=== PATIENT | female | born 1950 | race Caucasian/White ===

== ENCOUNTER 2024-11-18 06:17 | Day surgery (SDC) | payer MEDICARE, OTHER, SELFPAY ==
[2024-11-18] VITALS (18 sets, daily range): BP systolic 113–170; BP diastolic 55–74; BMI 33.4
[2024-11-18 07:02] LABS: Glucose - Point of Care 137 mg/dl (70-99)
--- NOTE | 2024-11-18 08:05 | CONSULT.STRU ---
Consultation
-
Date/Time Consultation Requested: 11/18/2024
Date/Time Consultation Performed: 11/18/2024
Requesting Provider: Anshul Mayfield MD
Performing Provider: RAE Bishop
Reason for Consultation: /TAVR
Patient History
Physicians
Family Physician: Maggie Jacobs DO
Outpatient Wire Mill Operator: Rudy Fischer MD
Primary Wire Mill Operator: Rudy Fischer DO
History of Present Illness
Ms. Brown is a very pleasant 74 yof that has a past medical history significant for aortic stenosis, PAF, diabetes, HTN, and hypercholesterolemia. Her most recent echocardiogram from 10/26/2024 is notable for an EF 50-55%, AV P/M 95/51, mild to
moderate AI, moderate MAC, mild MR, mild TR, RVSP 34. From a symptomatology standpoint, patient describes fatigue and increased exercise tolerance. When patient came in for cardiac catheterization on 11/18/2024 she was noted to have intermittent 2-1
and 3-1 AV block during the procedure which appears to be type II second-degree. She will have a pacemaker placed. Discussed the pathophysiology and treatment options of aortic stenosis including SAVR and TAVR, Explained the evaluation process
comprising of lab work, CT scan, CT surgical consult, dental clearance, and a heart team discussion. TAVR booklet, contact information, prescriptions, and appointments given to patient. Allowed for and answered questions at bedside.
Past Medical History
Past Medical History: Asthma, Atrial Fib (PAF), HTN, Hypercholesterolemia, Hypothyroidism, Psychiatric (anxiety, insomnia), Valvular Disease (aortic stenosis) and Other (benign neoplasm of the colon, lichen sclerosis)
Past Surgical History
Past Surgical History: Hysterectomy, Orthopedic (rotator cuff repair, total shoulder arthroplasty) and Other (spigelian hernia repair)
Dental History
[facility]--UTD-Form faxed
Family History
Family Medical History: CAD
Social History
Alcohol: None
Drug: Marijuana
Tobacco: Former Smoker
Personal:
Living: Alone
Allergies
Allergy/AdvReac Type Severity Reaction Status Date / Time
aspirin Allergy Rash Verified 11/18/24 07:04
NSAIDS (Non-Steroidal Allergy Swelling Verified 11/18/24 07:04
Anti-Inflamma
Home Medications
�Medication �Instructions �Recorded �Confirmed �Type
albuterol sulfate 90 mcg/actuation 2 puff inhalation Q6H PRN wheezing 11/18/24 11/18/24 History
aerosol inhaler
levothyroxine 88 mcg tablet 88 mcg PO DAILY 11/18/24 11/18/24 History
losartan 100 mg tablet 100 mg PO DAILY 11/18/24 11/18/24 History
magnesium 200 mg tablet 200 mg PO DAILY 11/18/24 11/18/24 History
meloxicam 7.5 mg tablet 7.5 mg PO DAILY 11/18/24 11/18/24 History
metformin 500 mg tablet 500 mg PO BID 11/18/24 11/18/24 History
metoprolol tartrate 50 mg tablet 50 mg PO BID 11/18/24 11/18/24 History
mirtazapine 15 mg tablet 15 mg PO DAILY 11/18/24 11/18/24 History
simvastatin 40 mg tablet 40 mg PO DAILY 11/18/24 11/18/24 History
tramadol 50 mg tablet 50 mg PO DAILY PRN pain 11/18/24 11/18/24 History
STS%
STS %: 4.3
Review of Systems
-
History Source: Patient
General: Reports Fatigue
HEENT: Reports No Symptoms
Respiratory: Reports No Symptoms
Cardiac: Reports Other (SYNCOPE)
Abdomen/GI: Reports No Symptoms
: Reports No Symptoms
Musculoskeletal: Reports No Symptoms
Skin: Reports No Symptoms
Neurological: Reports No Symptoms
Vascular: Reports No Symptoms
Physical Exam
Vital Signs
Temp 97.6 F 11/18/24 06:39
Temp route: Oral 11/18/24 06:32
Pulse 89 11/18/24 07:15
Resp Rate 18 11/18/24 06:32
Blood pressure 157/61 11/18/24 06:39
Blood pressure extremity used: Left upper arm 11/18/24 06:32
Position: Sitting 11/18/24 06:32
MAP (cuff-Mary Monitor) 93 11/18/24 06:39
SaO2 97 11/18/24 06:50
Oxygen Mode of Delivery Room air 11/18/24 06:32
Can the patient verbally communicate their pain? Yes 11/18/24 06:32
Labs
11/10/2024
HH: 13.8/43.4
Plt: 267K
BUN/Creatinine: 18/0.68
GFR: 91
Diagnostic Studies
ECHOCARDIOGRAM 10/26/2024
SUMMARY
1. Left ventricular ejection fraction, by visual estimation, is 50 to 55%.
2. Severe concentric left ventricular hypertrophy.
3. Decreased left ventricular internal cavity size by (3.47 cm/ 1.86 cm/m2).
4. Normal LV diastolic function.
5. Normal right ventricular size and systolic function.
6. Aortic valve is functionally bicuspid. Severe aortic valve stenosis. Mild to moderate aortic regurgitation.
7. AoV velocity of 4.86 m/s; Peak aortic valve gradient = 94.7 mmHg; Mean gradient = 51.2 mmHg; AoV Area by continuity equation = 0.62 cm2; AoV Dimensionless Index = 0.19.
8. There is moderate thickening of the anterior and posterior leaflets of the mitral valve. Moderate mitral annular calcification.
9. Mild mitral valve regurgitation is seen.
10. Right atrial pressure of (3 mmHg), the estimated right ventricular systolic pressure is normal at (34.1 mmHg).
11. Compared to prior study 04/08/2024, Aortic Gradients have increased.
12. Study done in Normal sinus rhythm.
CARDIAC CATHETERIZATION 11/18/2024
ASSESSMENT:
1: Single-vessel coronary artery disease in the mid/distal LAD. It is not clear to me that this is obstructive and would plan to treat medically if she is a TAVR candidate for her severe aortic stenosis.
2: The patient had intermittent 2-1 and 3-1 AV block during the procedure which appears to be type II second-degree. Will arrange for urgent pacemaker insertion later today given her recent unexplained syncope and underlying bifascicular block.
3: Severe aortic valvular stenosis.
CONCLUSIONS and RECOMMENDATIONS:
1: Proceed with TAVR evaluation.
2: Planned dual-chamber pacemaker later today.
3: Medical therapy for coronary artery disease.
Procedure Type:�Isolated AVR
Perioperative Outcome Estimate %
Operative Mortality 4.3%
Morbidity & Mortality 11.9%
Stroke 0.005%
Renal Failure 3.62%
Reoperation 2.49%
Prolonged Ventilation 5.86%
Deep Sternal Wound Infection 0.034%
Long Hospital Stay (>14 days) 9.8%
Short Hospital Stay (<6 days)* 30.1%
Exam
General: Well Developed, Well Nourished, No Apparent Distress and Comfortable
HEENT: Normocephalic and PERRLA
Neck: Trachea Midline
Respiratory: Clear (anteriorly)
Cardiac: Murmur (III/ LYUBOV)
GI: Soft, Non Tender and Non Distended
Rectal: Deferred by Provider
Skin: Warm and Dry
Neuro: Awake, Alert, Oriented and AO x 3
Extremities: Lower Level Edema
Psych: Calm
Assessment / Plan
-
Aortic Stenosis
Continue TAVR evaluation
Trend creatinine (Rx given)
TAVR CT scan (12/04)
CT surgical consult (TT 12/14)
Frailty testing and Kccq12 at consult
Discuss antiplatelet plan--pt has aspirin allergy
Dental clearance
Heart team discussion
Data Reviewed
-
EKG: Report Reviewed by me (RBBB, LAFB, bifascicular block)
Government Minister: Report Reviewed by me and Discussed with Physician
Echo: Report Reviewed by me and Discussed with Physician
Labs: Labs Reviewed by me
Old Records: Reviewed
Total Time Spent with Patient (in minutes): 45
--- NOTE | 2024-11-18 08:51 | ITS.CL.CATH ---
Drug Enforcement Administration Agent - Catheterization
Cardiac Catheterization
Procedure Report:
LEFT HEART CATHETERIZATION
Date of Procedure: November 18, 2024
Procedures performed:
1: Coronary angiography
2: Left ventricular hemodynamic assessment
Primary Care Physician: Dr. Maggie Jacobs
Primary Annealing Furnace Tender: Dr. Rudy Fischer
INDICATION: The patient is a 74-year-old woman with a past medical history significant for progressive severe aortic stenosis who is referred for cardiac catheterization in preparation for aortic valve intervention. Of note, she has had 7 episodes
of presyncope and actually had true syncope 2 weeks ago. She has bifascicular block with right bundle branch and left anterior fascicular block on her EKG. Echocardiogram performed on October 26 shows preserved LV systolic function, severe concentric
left ventricular hypertrophy. Mean aortic valve gradient of 51 with mild to moderate aortic regurgitation and a valve area by the continuity equation 0.6 cm�.
ACCESS: The patient was prepped and draped in usual sterile fashion. A 5 Eston[place] sheath was placed in the right radial artery using the Seldinger over the wire technique.
HEMODYNAMIC FINDINGS (mmHg):
LV(s/d,EDP): 227/8, 27
Ao(s/d,m): 157/89, 101
Mean aortic valve gradient on pullback: 54 mmHg
ANGIOGRAPHIC FINDINGS:
Single-plane Left Ventriculography in BAUMANN Projection: Not done.
Coronary Angiography:
Dominance: Right
Left Main: Normal
Left Anterior Descending: Left anterior descending artery is a medium to large caliber vessel that is diffusely calcified throughout the midportion. The proximal LAD is widely patent. There are mild luminal irregularities throughout the mid LAD
which gives rise to 2 medium caliber diagonal branches which are also widely patent with normal flow. After the takeoff of the second diagonal branch there is a smooth 60 to 70% mid/distal LAD stenosis with normal flow in the apical LAD which wraps
around to feed a significant portion of the distal inferior wall.
Left Circumflex: The left circumflex is a medium caliber nondominant system that gives rise to 2 major branching obtuse marginal branches. These vessels have mild luminal irregularities with normal flow and no focal obstructive disease.
Right Coronary: The right coronary artery is a medium caliber dominant vessel that gives rise to a small posterior descending artery and larger posterior left ventricular branch. These vessels have only mild luminal irregularities with normal flow
and no focal obstructive disease.
Fluoroscopy Time (min): 4.0
Radiation Dose (mGy): 339
DAP (Gy.cm2): 19.6
Closure device: None. A TR band was applied for hemostasis at the right wrist.
Complications: None.
ASSESSMENT:
1: Single-vessel coronary artery disease in the mid/distal LAD. It is not clear to me that this is obstructive and would plan to treat medically if she is a TAVR candidate for her severe aortic stenosis.
2: The patient had intermittent 2-1 and 3-1 AV block during the procedure which appears to be type II second-degree. Will arrange for urgent pacemaker insertion later today given her recent unexplained syncope and underlying bifascicular block.
3: Severe aortic valvular stenosis.
CONCLUSIONS and RECOMMENDATIONS:
1: Proceed with TAVR evaluation.
2: Planned dual-chamber pacemaker later today.
3: Medical therapy for coronary artery disease.
Anshul Mayfield M.D.
Copy to: Dr. Maggie Jacobs
[2024-11-18] MEDS: NSS 1000 IV (08:59)
[2024-11-18] MEDS: COZAAR 100 MG PO (09:05)
--- NOTE | 2024-11-18 10:03 | PTCARENOTE ---
Received pt from cardiac cathode ray tube assembler. VSS. Right radial cath site w/ R band intact and inflated w/ 12 ml of air. Pt denies any chest discomfort. SB w/ 2:1 heart block noted on the air sampling and monitoring. Pt kept NPO for pacemaker placement this
afternoon. Will monitor.
[2024-11-18 12:01] LABS: Glucose - Point of Care 101 mg/dl (70-99)
--- NOTE | 2024-11-18 15:53 | ITS.CL.PACE ---
Navy Seal - Pacemaker Implant
Pacemaker Implant
Procedure Report:
PACEMAKER IMPLANT REPORT
Primary Care Physician: Dr. Maggie Jacobs
Primary Controls Technician: Dr. Rudy Fischer
Date of Procedure: November 18, 2024
Procedure:
1: Dual chamber pacemaker implantation with fluoroscopic guidance
Indication/Diagnosis:
1: Non-reversible symptomatic bradycardia due to: Intermittent type II second degree AV block with unexplained syncope and recurrent presyncope
History: The patient is a 74-year-old woman who has a past medical history significant for hypertension, hyperlipidemia, coronary artery disease, and severe progressive aortic stenosis. She was referred today for coronary angiography as part of a
preaortic valve intervention workup. On arrival she reported several episodes of presyncope and true syncope concerning for symptomatic bradycardia. She has underlying bifascicular block with LAFB and RBBB. During the cath she was noted to have
periods of type II second-degree AV block and is now presenting for dual-chamber pacemaker placement.
Antibiotic: Ancef 2 g IV
Sedation: Conscious sedation as per anesthesia staff
Description of Procedure: After informed consent was obtained, 'time out' was called and confirmed, the patient was prepped and draped in a sterile fashion. Lidocaine with epinephrine was used for local anesthesia. Central venous access was
obtained via subclavian venopuncture after a venogram from the left arm confirmed subclavian patency. An incision was made along the left chest and a pre-pectoral pocket was formed. Using a Seldinger technique and peel-away sheaths, the pacing
leads were placed under fluoroscopic guidance. Once testing (see below) showed adequate and stable function, the leads were secured using the suture sleeves. The pocket was liberally irrigated with antibiotic solution. The leads were connected to
the generator header and the leads and generator were placed within the pocket. Fluoroscopy confirmed stable lead position. The pocket was closed in the typical fashion.
IMPLANTS:
Company: [employer] [id number], SN: [id number] left Pectoral
RA: [employer] [id number], SN: [id number], RAA
RV: [employer] [id number], SN: [id number], RV apical septum
DEVICE TESTING:
Sensing: RA 4.5 mV, RV greater than 12 mV
Capture: RA 1.25 V@0.4ms, RV 0.75V@0.4ms
Ohms: RA 660, RV 790
FINAL PROGRAMMING
Merritt Pacing: DDDR 60-120 ppm
Complications: None.
Fluoroscopy Time (min): 9.2
Radiation Dose (mGy): 52
DAP (Gy.cm2): 6.1
CONCLUSIONS:
1: Successful implant of dual chamber permanent pacemaker
RECOMMENDATIONS:
1. Routine post-op care (tele, CXR, arm sling).
2. In-Office wound check within 7 days.
3. Office interrogation within 4 weeks.
--- NOTE | 2024-11-18 15:54 | DOWNTIME ---
There was a meebee Client Folder Gluer Operator Downtime on 11/18/2024 from 1230 to 11/18/2024 at 1550. Downtime documentation of patient's care, including medication administrations, has been reconciled in the electronic record per guidelines. Refer to the
patient's paper chart under the miscellaneous tab to see printed paper medication records and downtime forms.
--- NOTE | 2024-11-18 15:57 | PTCARENOTE ---
Pt to excavation laborer after 1300 for PPM.
--- NOTE | 2024-11-18 16:07 | CM ---
Attempted to meet with patient x2 on this date to complete initial assessment.
Pt. was not present in room on both occasions. Will re-attempt at a later time.
[2024-11-18] MEDS: NOVOLOG FLEXPEN-MODERATE RESISTANCE SC (16:19)
[2024-11-18 16:53] LABS: Glucose - Point of Care 157 mg/dl (70-99)
--- NOTE | 2024-11-18 17:32 | PTCARENOTE ---
Received pt post PPM. Left ACW PPM gauze dressing intact. VSS. Pt denies any chest discomfort. EKG obtained. Orders noted. Will monitor.
[2024-11-18] MEDS: NOVOLOG FLEXPEN-MODERATE RESISTANCE 1 UNITS SC (18:49)
[2024-11-18] MEDS: LOPRESSOR 50 MG PO (21:00)
[2024-11-18] MEDS: REMERON 15 MG PO (21:01)
[2024-11-18] MEDS: LIPITOR 20 MG PO (21:01)
--- NOTE | 2024-11-18 21:17 | PTCARENOTE ---
Received patient at change of shift. SR on the monitor, HR in the 90s. L chest pacemaker site with gauze and Tegaderm, CDI and soft. R radial dressing CDI. No complaints from pt at this time, call craft within reach.
[2024-11-18 21:55] LABS: Glucose - Point of Care 306 mg/dl (70-99)
[2024-11-18] MEDS: ANCEF 5 IV (22:24)
[2024-11-18] MEDS: NOVOLOG FLEXPEN 5 UNITS SC (22:25)
--- NOTE | 2024-11-18 22:36 | PTCARENOTE ---
Patients blood sugar before bed was 306. Provider notified, 5 units of insulin administered as per PA.
[2024-11-19 03:20] VITALS: BP 166/83
[2024-11-19 04:04] LABS: Hematocrit 41.7 % (37.0-47.0); Hemoglobin 13.7 g/dL (12.0-16.0); Mean Corp Hgb Conc. 32.9 g/dL (33.0-37.0); Mean Corpuscular Hgb 29.6 pg (27.0-31.0); Mean Corpuscular Volume 90.1 fL (81.0-99.0); Mean Platelet Volume 10.6 fL (7.4-10.4); Platelet Count 256 10^3/uL (130-400); Red Blood Cell Count 4.63 10^6/uL (4.20-5.40); Red Cell Dist. Width 13.7 % (11.5-14.5); White Blood Cell Count 10.5 10^3/uL (4.8-10.8)
[2024-11-19 04:26] LABS: Blood Urea Nitrogen 23 mg/dl (7-17); Calcium 9.9 mg/dl (8.4-10.2); Carbon Dioxide 23 mmol/L (22-30); Chloride 109 mmol/L (98-107); Estimated Creatinine Clearance 70 ml/min; Glucose 172 mg/dl (70-99); Potassium 4.9 mmol/L (3.5-5.1); Sodium 140 mmol/L (135-145); eGFR > 60.00
[2024-11-19] MEDS: ANCEF 5 IV (06:01)
[2024-11-19 06:06] VITALS: BP 159/58
[2024-11-19 07:36] VITALS: BP 134/62
[2024-11-19 07:41] LABS: Glucose - Point of Care 133 mg/dl (70-99)
[2024-11-19] MEDS: LOPRESSOR 50 MG PO (07:57)
[2024-11-19] MEDS: COZAAR 100 MG PO (07:58)
[2024-11-19] MEDS: NOVOLOG FLEXPEN-MODERATE RESISTANCE SC (08:02)
--- NOTE | 2024-11-19 08:30 | PTCARENOTE ---
Received pt at change of shift OOB to chair for breakfast. pt says she was seen by Dr. Nguyen this morning to discuss d/c. NSR on the monitor, HR in the 70's. Right radial site C.D.I. slightly ecchymotic, no bleeding or hematoma noted at this time.
Pt denies any pain or SOB. Ambulating in room by self. Call craft within reach.
--- NOTE | 2024-11-19 09:04 | W.PN.CARDCBS ---
Addendum entered and electronically signed by Chente Nguyen MD 11/19/24 09:59:
Patient seen and examined
Agree with BEAN SPROUT GROWER note and assessment
Agree with BEAN SPROUT GROWER plan
Reviewed chest x-ray with stable lead positions
Appropriate atrial and ventricular sensing on telemetry
Reviewed details of procedure yesterday
Exam:
Site clean dry and intact
Chest x-ray personally reviewed
Telemetry personally reviewed
Remainder as per BEAN SPROUT GROWER note
Impression:
Symptomatic severe MG 54mmHg
Intermittent 2:1 and 3:1 heart block
Syncope
Bifascicular block, RBBB, LAFB
CAD with mid/distal LAD stenosis by cath 11/18/24
post DC PPM SJM 11/18/24
HTN
HLD
DM2
PAF - SR since 2015
Hypothyroidism
PVD
Plan:
site stable
tele SR with LAFB and intermittent Apacing
CXR no PTX, leads in good position
device interrogated - functioning appropriately
Hold Metformin post procedure, resume on Saturday
Limit use of meloxicam for 1 week, uses only PRN
CAD - LAD stenosis will treat medically for now. Continue metoprolol and simvastatin, unable to tolerate ASA d/t hives,
may consider Plavix monotherapy with valve but hold off for now to prevent pacer pocket HT
continue outpt w/u for TAVR
Activity restrictions reviewed
Incision check on Saturday am
home today
Original Note:
Today's Communication / Plan
-
TAVR w/u post cath had heart block post PPM
continue outpt w/u for TAVR
incision check at [facility] tomorrow
home today
Impression / Plan
-
Primary Care Physician: Dr. Maggie Jacobs
Primary Vp Rheumatology: Dr. Rudy Fischer
a 74-year-old woman with a past medical history significant for progressive severe aortic stenosis who is referred for cardiac catheterization in preparation for aortic valve intervention. Of note, she has had 7 episodes of presyncope and actually
had true syncope 2 weeks ago. She has bifascicular block with right bundle branch and left anterior fascicular block on her EKG. Echocardiogram performed on October 26 shows preserved LV systolic function, severe concentric left ventricular
hypertrophy. Mean aortic valve gradient of 51 with mild to moderate aortic regurgitation and a valve area by the continuity equation 0.6 cm�.
Impression:
Symptomatic severe MG 54mmHg
Intermittent 2:1 and 3:1 heart block
Syncope
Bifascicular block, RBBB, LAFB
CAD with mid/distal LAD stenosis by cath 11/18/24
post DC PPM SJM 11/18/24
HTN
HLD
DM2
PAF - SR since 2015
Hypothyroidism
PVD
Plan:
post cath for TAVR w/u had intermittent heart block on tele
she had been having presyncope and one episode of true syncope over the last few months
She underwent DC PPM yesterday after [facility]
site stable
tele SR with LAFB and intermittent Apacing
CXR no PTX, leads in good position
device interrogated - functioning appropriately
Hold Metformin post procedure, resume on Saturday
Limit use of meloxicam for 1 week, uses only PRN
CAD - LAD stenosis will treat medically for now. Continue metoprolol and simvastatin, unable to tolerate ASA d/t hives,
may consider Plavix monotherapy with valve but hold off for now to prevent pacer pocket HT
continue outpt w/u for TAVR
Activity restrictions reviewed
Incision check on Saturday am
home today
Progress Note - Vp Rheumatology
Subjective
Date of Service: November 19, 2024
denies cp, sob
Objective
Labs:
11/19/24 03:36
11/19/24 03:36
Labs
Hgb 13.7 g/dL (12.0-16.0) 11/19/24 03:36
Hct 41.7 % (37.0-47.0) 11/19/24 03:36
Plt Count 256 10^3/uL (130-400) 11/19/24 03:36
Sodium 140 mmol/L (135-145) 11/19/24 03:36
Potassium 4.9 mmol/L (3.5-5.1) 11/19/24 03:36
BUN 23 mg/dl (7-17) H 11/19/24 03:36
Creatinine 0.7 mg/dL (0.6-1.0) 11/19/24 03:36
Glucose 172 mg/dl (70-99) H 11/19/24 03:36
Vital Signs and I&O:
Vital Signs
Temp Pulse Resp BP Pulse Ox
98.6 F 91 20 134/62 97
11/19/24 07:36 11/19/24 08:15 11/19/24 07:36 11/19/24 07:57 11/19/24 08:30
Vital Signs
Temp Pulse Resp BP Pulse Ox
98.6 F 91 20 134/62 97
11/19/24 07:36 11/19/24 08:15 11/19/24 07:36 11/19/24 07:57 11/19/24 08:30
Intake & Output
11/17/24 11/18/24 11/19/24 11/20/24
06:59 06:59 06:59 06:59
Intake Total 480 / 480 240 / 240
Balance 480 / 480 240 / 240
Physical Exam
Physical Exam
NAD, AOx3
S1, S2, RRR
CTAB, non labored, no wheeze
SNTND bsx4
L CW dressing c/d/i no HT
R rad site c/d/i good pulse
--- NOTE | 2024-11-19 09:40 | CM ---
Cm following for DC planning needs.
Met w/ patient at bedside, prior to DC.
Pt. reports that she resides alone. She is quite indep. at baseline w/ ADLs, mobility without the use of any assisted device.
DC plan is for home without needs.
--- NOTE | 2024-11-19 15:26 | W.DS.TRANS ---
DC Summary - Press Breaker
-
Discharge Instructions:
Discharge Diagnosis/Procedures Cardiac cath and Pacemaker implant
Diet Low Cholesterol,Diabetic, Carb Controlled
Driving Restrictions No driving for 1 week
Bathing Restrictions OK to Shower
Blood Work PLEASE GET YOUR BLOOD WORK NEXT WEEK (11/25 OR 11/26
). PLEASE FAX RESULTS TO [phone] [facility] ATTN
HEART TEAM
Others Tests YOUR CT SCAN IS SCHEDULED FOR (12/04/2024 @ 9:30)
AT [facility]. NOTHING TO
EAT OR DRINK [address] SCAN. PLEASE
BRING A LIST OF MEDICATIONS. YOU MAY TAKE YOUR
MORNING MEDICATIONS PRIOR TO COMING IN.
YOU WILL NEED DENTAL CLEARANCE BEFORE YOUR
VALVE REPLACEMENT
Instructions:
Stand-Alone Forms: DC Instructions- Cath/EP Lab
DC Inst - Implanted Device
Changes to Home Medications: No
Discharge Medications:
DC Medications w/original date entered in [employer]
albuterol sulfate 90 mcg/actuation aerosol inhaler 2 puff inhalation Q6H PRN wheezing 11/18/24
levothyroxine 88 mcg tablet 88 mcg PO DAILY 11/18/24
losartan 100 mg tablet 100 mg PO DAILY 11/18/24
magnesium 200 mg tablet 200 mg PO DAILY 11/18/24
metformin 500 mg tablet 500 mg PO BID 11/18/24
metoprolol tartrate 50 mg tablet 50 mg PO BID 11/18/24
mirtazapine 15 mg tablet 15 mg PO DAILY 11/18/24
simvastatin 40 mg tablet 40 mg PO DAILY 11/18/24
tramadol 50 mg tablet 50 mg PO DAILY PRN pain 11/18/24
meloxicam 7.5 mg tablet 7.5 mg PO DAILY PRN pain #0 tabs 11/19/24
Home Medication Changes
Pending Results: No
== END 2024-11-19 11:20 | disposition home or self-care (01) ==
LOC: CATH 06:17
PROVIDERS: Nurse Practitioner Adult Health; ATTENDING PHYSICIAN Internal Medicine Interventional Cardiology; FAMILY PHYSICIAN Family Medicine; OTHER PHYSICIAN Internal Medicine Cardiovascular Disease
DX: I35.2 Nonrheumatic aortic (valve) stenosis with insufficiency (principal); I44.1 Atrioventricular block, second degree; I25.10 Atherosclerotic heart disease of native coronary artery without angina pectoris; I45.2 Bifascicular block; R55 Syncope and collapse; E03.9 Hypothyroidism, unspecified; E11.51 Type 2 diabetes mellitus with diabetic peripheral angiopathy without gangrene; E78.00 Pure hypercholesterolemia, unspecified; F41.9 Anxiety disorder, unspecified; I08.0 Rheumatic disorders of both mitral and aortic valves; I10 Essential (primary) hypertension; I48.0 Paroxysmal atrial fibrillation; J45.909 Unspecified asthma, uncomplicated; Z79.1 Long term (current) use of non-steroidal anti-inflammatories (NSAID); Z79.84 Long term (current) use of oral hypoglycemic drugs; Z79.890 Hormone replacement therapy; Z79.899 Other long term (current) drug therapy; Z86.0101 Personal history of adenomatous and serrated colon polyps; Z82.49 Family history of ischemic heart disease and other diseases of the circulatory system; Z87.891 Personal history of nicotine dependence; Z88.6 Allergy status to analgesic agent; Z90.710 Acquired absence of both cervix and uterus; Z98.890 Other specified postprocedural states
CPT/HCPCS: 33208; 71045; 80048; 82962; 83036; 83735; 85027; 93005; 93458; C1785; C1892; C1894; C1898; Q9967

== ENCOUNTER → 2024-12-04 09:15 | Outpatient (REF) | payer MEDICARE, OTHER, SELFPAY | LOC: RAD 09:15 | PROVIDERS: ATTENDING PHYSICIAN Nurse Practitioner Acute Care | DX: I35.0 Nonrheumatic aortic (valve) stenosis (principal) | CPT/HCPCS: 74174; 75572; Q9967 ==

== ENCOUNTER 2025-03-04 04:47 | Inpatient (IN) | payer MEDICARE, OTHER, SELFPAY ==
[2025-02-19 12:17] VITALS: BMI 30.7
[2025-02-19 12:26] LABS: Hematocrit 40.7 % (37.0-47.0); Hemoglobin 13.1 g/dL (12.0-16.0); Mean Corp Hgb Conc. 32.2 g/dL (33.0-37.0); Mean Corpuscular Volume 90.4 fL (81.0-99.0); Nucleated Red Blood Cells % 0 %; Platelet Count 252 10^3/uL (130-400); Red Cell Dist. Width 13.6 % (11.5-14.5)
[2025-02-19 12:29] LABS: Urine Character Clear (Clear)
[2025-02-19 12:35] LABS: INR 1.00; PT 13.5 Sec (11.4-14.6); Urine Squamous Cell 0-2 /LPF (Few); Urine White Cell 0-2 /HPF (0-5)
[2025-02-19 12:36] LABS: Urine Red Blood Cell 0-2 /HPF (0-2)
[2025-02-19 12:54] LABS: ALT (SGPT) 35 U/L (0-35); AST (SGOT) 31 U/L (14-36); Albumin 4.3 g/dl (3.5-5.0); Alkaline Phosphatase 71 U/L (38-126); Blood Urea Nitrogen 10 mg/dl (7-17); Calcium 9.8 mg/dl (8.4-10.2); Carbon Dioxide 26 mmol/L (22-30); Chloride 104 mmol/L (98-107); Estimated Creatinine Clearance 73 ml/min; Glucose 109 mg/dl (70-99); Potassium 4.6 mmol/L (3.5-5.1); Sodium 136 mmol/L (135-145); Total Protein 6.5 g/dl (6.3-8.2); eGFR > 60.00
--- NOTE | 2025-02-19 16:33 | CM ---
spoke to pt in PAT's, we discussed preop AVR teaching including sternal and driving restrictions. she lives alone, her brother lives in upstairs apt and daughter is close by and supportive. she has the cardiac surgery book, soap and instructions.
she is agreeable to a f/u visit from the [place] tranitional care nurse after dc. cm role explained and all questions answered. plan is for AVR 03/04.
[2025-03-04] VITALS (11 sets, daily range): BP systolic 94–127; BP diastolic 52–73; BMI 30.7; BMI 29.4
[2025-03-04] MEDS: BACTROBAN 2% OINTMENT 1 APPLIC NASAL ×2 (05:05→20:57)
[2025-03-04] MEDS: LOPRESSOR 25 MG PO (05:05)
[2025-03-04] MEDS: MAGNESIUM OXIDE 400 MG PO (05:05)
[2025-03-04] MEDS: PROTONIX 40 MG PO (05:05)
--- NOTE | 2025-03-04 05:15 | PTCARENOTE ---
Pt admitted to room 2262. VS and weight obtained. Pt confirmed 2 showers at home and NPO status. Admission questions and med rec completed. clip prep and CHG wipes done. pre-op meds given.
--- NOTE | 2025-03-04 06:34 | W.CVOR.SURPR ---
CVOR Surgeon Immed Pre Op
-
I have examined this patient prior to performance of the scheduled procedure.
The patient's condition is unchanged from the time of the dictated/written History and
Physical and the patient is able to undergo the scheduled procedure.
Sternotomy Freestyle Root Replacement +/- ELVIA E
[2025-03-04 07:46] LABS: Urine Character Clear (Clear)
[2025-03-04 07:50] LABS: ACT+ - POC 118 Seconds (82-134)
[2025-03-04 08:39] LABS: B.E. - POC 0.1 mmol/L; Glucose - POC 143 mg/dl (70-99); HCO3 - POC 24 mmol/L (21-28); Hematocrit - POC 32 % PCV (37-47); Hemodilution- POC No; Hemoglobin Calculated - POC 10.9; Ionized Calcium - POC 1.15 mmol/L (1.15-1.33); Lactate - POC 0.81 mmol/L (0.36-0.75); O2 Saturation %Calculated-POC 99.5 % (94-98); PCO2 - POC 35 mmHg (35-48); PO2 - POC 164 mmHg (83-108); POC Comment PRE; Potassium - POC 3.7 mmol/L (3.5-5.1); Sodium - POC 140 mmol/L (136-145); Specimen Type - POC Arterial; pH - POC 7.44 (7.35-7.45)
[2025-03-04 09:18] LABS: ACT+ - POC 641 Seconds (82-134)
[2025-03-04 09:20] LABS: Urine Red Blood Cell 0-2 /HPF (0-2); Urine White Cell 0-2 /HPF (0-5)
[2025-03-04 09:34] LABS: B.E. - POC 3.1 mmol/L; Glucose - POC 157 mg/dl (70-99); HCO3 - POC 27 mmol/L (21-28); Hematocrit - POC 28 % PCV (37-47); Hemodilution- POC Yes; Hemoglobin Calculated - POC 9.5; Ionized Calcium - POC 1.02 mmol/L (1.15-1.33); Lactate - POC 0.71 mmol/L (0.36-0.75); O2 Saturation %Calculated-POC 100.0 % (94-98); PCO2 - POC 37 mmHg (35-48); PO2 - POC 383 mmHg (83-108); POC Comment CPB; Potassium - POC 4.2 mmol/L (3.5-5.1); Sodium - POC 142 mmol/L (136-145); Specimen Type - POC Arterial; pH - POC 7.47 (7.35-7.45)
[2025-03-04 09:46] LABS: ACT+ - POC 613 Seconds (82-134)
[2025-03-04 10:05] LABS: B.E. - POC 1.3 mmol/L; Glucose - POC 156 mg/dl (70-99); HCO3 - POC 27 mmol/L (21-28); Hematocrit - POC 30 % PCV (37-47); Hemodilution- POC Yes; Hemoglobin Calculated - POC 10.1; Ionized Calcium - POC 1.08 mmol/L (1.15-1.33); Lactate - POC 1.35 mmol/L (0.36-0.75); O2 Saturation %Calculated-POC 99.8 % (94-98); PCO2 - POC 46 mmHg (35-48); PO2 - POC 255 mmHg (83-108); POC Comment CPB; Potassium - POC 3.6 mmol/L (3.5-5.1); Sodium - POC 144 mmol/L (136-145); Specimen Type - POC Arterial; pH - POC 7.38 (7.35-7.45)
[2025-03-04 10:17] LABS: ACT+ - POC 656 Seconds (82-134)
[2025-03-04 10:35] LABS: B.E. - POC 0.9 mmol/L; Glucose - POC 132 mg/dl (70-99); HCO3 - POC 26 mmol/L (21-28); Hematocrit - POC 26 % PCV (37-47); Hemodilution- POC Yes; Hemoglobin Calculated - POC 8.7; Ionized Calcium - POC 1.01 mmol/L (1.15-1.33); Lactate - POC 1.44 mmol/L (0.36-0.75); O2 Saturation %Calculated-POC 99.9 % (94-98); PCO2 - POC 42 mmHg (35-48); PO2 - POC 353 mmHg (83-108); POC Comment CPB; Potassium - POC 3.5 mmol/L (3.5-5.1); Sodium - POC 145 mmol/L (136-145); Specimen Type - POC Arterial; pH - POC 7.40 (7.35-7.45)
[2025-03-04 10:46] LABS: ACT+ - POC 630 Seconds (82-134)
[2025-03-04 11:02] LABS: B.E. - POC 1.8 mmol/L; Glucose - POC 118 mg/dl (70-99); HCO3 - POC 26 mmol/L (21-28); Hematocrit - POC 23 % PCV (37-47); Hemodilution- POC Yes; Hemoglobin Calculated - POC 8.0; Ionized Calcium - POC 0.96 mmol/L (1.15-1.33); Lactate - POC 1.79 mmol/L (0.36-0.75); O2 Saturation %Calculated-POC 100.0 % (94-98); PCO2 - POC 40 mmHg (35-48); PO2 - POC 364 mmHg (83-108); POC Comment CPB; Potassium - POC 3.5 mmol/L (3.5-5.1); Sodium - POC 145 mmol/L (136-145); Specimen Type - POC Arterial; pH - POC 7.43 (7.35-7.45)
[2025-03-04 11:12] LABS: ACT+ - POC 558 Seconds (82-134)
[2025-03-04 11:30] LABS: B.E. - POC 1.2 mmol/L; Glucose - POC 129 mg/dl (70-99); HCO3 - POC 26 mmol/L (21-28); Hematocrit - POC 26 % PCV (37-47); Hemodilution- POC Yes; Hemoglobin Calculated - POC 8.8; Ionized Calcium - POC 0.95 mmol/L (1.15-1.33); Lactate - POC 2.71 mmol/L (0.36-0.75); O2 Saturation %Calculated-POC 99.9 % (94-98); PCO2 - POC 40 mmHg (35-48); PO2 - POC 352 mmHg (83-108); POC Comment WARM; Potassium - POC 4.2 mmol/L (3.5-5.1); Sodium - POC 145 mmol/L (136-145); Specimen Type - POC Arterial; pH - POC 7.42 (7.35-7.45)
--- NOTE | 2025-03-04 11:30 | CM ---
Chart reviewed. Patient is in the OR today. Patient is independent of ADLS, lives alone in a apartment, 1 ABY, 0 DME. Patient's brother lives in a apartment upstairs and patient's daughter lives nearby. Plan is for the patient to return home
with CT Transitional RN. CM to follow
[2025-03-04 11:38] LABS: ACT+ - POC 478 Seconds (82-134)
[2025-03-04 11:51] LABS: ACT+ - POC 612 Seconds (82-134)
[2025-03-04 11:55] LABS: B.E. - POC 0.4 mmol/L; Glucose - POC 135 mg/dl (70-99); HCO3 - POC 24 mmol/L (21-28); Hematocrit - POC 26 % PCV (37-47); Hemodilution- POC Yes; Hemoglobin Calculated - POC 8.8; Ionized Calcium - POC 1.20 mmol/L (1.15-1.33); Lactate - POC 4.12 mmol/L (0.36-0.75); O2 Saturation %Calculated-POC 100.0 % (94-98); PCO2 - POC 33 mmHg (35-48); PO2 - POC 343 mmHg (83-108); POC Comment WARM; Potassium - POC 4.5 mmol/L (3.5-5.1); Sodium - POC 144 mmol/L (136-145); Specimen Type - POC Arterial; pH - POC 7.47 (7.35-7.45)
[2025-03-04 12:04] LABS: ACT+ - POC 547 Seconds (82-134)
[2025-03-04 12:17] LABS: B.E. - POC -2.3 mmol/L; Glucose - POC 125 mg/dl (70-99); HCO3 - POC 22 mmol/L (21-28); Hematocrit - POC 25 % PCV (37-47); Hemodilution- POC Yes; Hemoglobin Calculated - POC 8.6; Ionized Calcium - POC 1.09 mmol/L (1.15-1.33); Lactate - POC 4.13 mmol/L (0.36-0.75); O2 Saturation %Calculated-POC 100.0 % (94-98); PCO2 - POC 32 mmHg (35-48); PO2 - POC 411 mmHg (83-108); POC Comment WARM; Potassium - POC 3.7 mmol/L (3.5-5.1); Sodium - POC 146 mmol/L (136-145); Specimen Type - POC Arterial; pH - POC 7.43 (7.35-7.45)
[2025-03-04 12:25] LABS: ACT+ - POC 148 Seconds (82-134)
--- NOTE | 2025-03-04 13:12 | W.PN.CT.SURG ---
Addendum entered and electronically signed by John Lyles MD 03/05/25 06:50:
.
Original Note:
CT Surgery Operative Note
-
CARDIAC SURGERY OPERATIVE REPORT
Preoperative Diagnosis: Severe aortic valve stenosis, small aortic root
Postoperative Diagnosis: Same heavy calcified root and calcified coronary arteries
Procedure(s) Performed:
1. Standard sternotomy with aortic and right atrial cannulation
2. Mobilization of both left and right coronary ostia, debridement of calcification (limited endarterectomy of the ostia) from the root and as well as from the coronary ostia and ascending thoracic aorta
3. Freestyle xenograft porcine root replacement with coronary reimplantation
4. Bchgjc-jnslwkkr-egfzznt Coronary artery bypass graft x 1 [aorta to RSVG to proximal RCA]
5. Placement of temporary atrial ventricular pacing wires
6. Transesophageal echocardiography
7. Limited ascending aortic replacement
Date of Surgery: 03/04/2025
Comorbidities:
1. Severe aortic valve stenosis, symptomatic
2. Small root, effaced sinuses
3. Hypertension
4. Hyperlipidemia
5. Diabetes mellitus
6. Remote history of A-fib but none since 2016
7. History of syncope and arrhythmias status post permanent pacemaker
8. PVD
9. Osteoporosis
Attending Surgeon: John Lyles MD, MS
Assistants: Mera Green PA-C (present and necessary to first line supervisor, retraction, suction, exposure, suture management, and wound closure under my direction), Miguelina Danielle MD (did portion of the distal ascending aortic anastomosis)
Anesthesiology: Vince Cedeño MD and Chente Lopez CRNA
Scrub and Circulating RNs: Chiqui Blair RN, Gabbie Greene RN
Vehicle Operator Technician: Elizabeth Castro CCP
Anesthesia: GETA
EBL: per perfusion records
Products: 4 prbcs and 2 plts
CPB Time: 205 minutes
Aortic Cross Clamp Time: 144 minutes
Indication(s) for Procedures: This is a 74-year-old female who is initially referred for TAVR. However multiple reconstructed images and measurements demonstrated that she had low her coronary heights and small sinuses concerning for possible
coronary obstruction or require leaflet modification down the line. She is referred back to CT surgery for consideration of a root replacement. Given heavy calcification of her root, I did quote her 2-3% mortality risk in my hands. Shared decision
making was to move forward with surgery.
Aortic Valve Description:Heavily calcified root, with infiltration into bilateral coronary ostia. There was significant sinus calcification as shown on the CT as well as a moderate degree of calcification of the greater curve on the ascending
thoracic aorta. Trileaflet valve, normal positions of the coronary ostia with a low take off.
Findings: She had a moderate degree of preoperative left ventricular hypertrophy, with normal LVEF of 60%. Following surgery, she was hyperdynamic with a n LVEF of 75%, initially there was moderate-severe RV dysfunction. I had anticipated bad
coronary buttons given the degree of calcification and so had endo vein harvested. I did a bypass to the proximal RCA and she regained normal RV function and size. In the end, she had hyperdynamic LV, normal RV, and no regional wall motion
abnormalities. The root was terribly calcified with infiltration into the bilateral coronary ostia. I had to perform a limited endarterectomy in order to have soft tissue to reimplant the buttons. The root was replaced using a 23mm Freestyle
Xenograft Porcine Root using interrupted non pledgetted 2-0 ethibonds circumferentially totally 32 that were hand tied. The buttons were reimplanted into their corresponding neosinus. Bioglue was lightly used to cover the suture line. the ascending
aorta needed to be resected to a soft portion as there was calcification at the STJ and distally. Bovine pericardium was used as a gasket around all suture lines except the distal anastomosis. After the RCA bypass, she had a cardiac index of 2.0 and
was on DTX at 5 and Levo. She did require blood products due to loss of blood from the vein harvest site. She resected a total of 4 prbcs and 2 plts. A and V wires were placed, and she was pacing in DDI fashion, ultimately with her [place] PPM taking
over at DDD. Mean gradient while hyperdynamic was 12mmHg. No intravalvular leak.
Specimen(s): Aortic valve leaflet, ascending aorta, sinus.
Prosthesis:
1. Medtronic Freestyle Porcine Xenograft Root SN [id number], 23mm
2. Bovine pericardium, SN [id number]
3. BioGlue, SN [id number] and SN [id number]
Description of Procedure: The patient was taken to the operating room. Their identity and procedure to be performed were verified and they were positioned supine on the operating table. Induction via general anesthesia with endotracheal intubation
was performed and central venous access and arterial monitoring were inserted. A preoperative transesophageal echocardiogram was performed to assess cardiac function and valvular function. The patient was then prepped and draped from chin to feet in
a sterile fashion. A preoperative time-out was performed with all members of the team present. A midline chest incision was performed along with median sternotomy. The innominate vein was isolated. Full heparinization was given (a total of 50,000
units). We created a pericardial well. The aortic cannulation site was chosen where it was soft, pliable, and free of calcium. Cannulation was performed with an arterial cannula in the ascending aorta and a triple-stage venous cannula through the
right atrial appendage. The arterial cannula line had an appropriate bounce and correlating pressures with test dosing. The pulmonary artery was away from the aorta to facilitate a clamp site and aortotomy. Next, a root vent/antegrade
cannula was inserted into the ascending aorta. The ACT was confirmed to be over 400 and retrograde autologous priming was performed before commencing cardiopulmonary bypass. A left ventricular vent was placed at the right superior pulmonary vein and
secured. The aortic cross-clamp was placed after decreasing the flow on the bypass and mean arterial pressure. A total of 1.2L initial dose of antegrade Del-Nido cardioplegia solution was given and planned for re-dosing every 75 minutes as
necessary. There was rapid electro-mechanical arrest of the heart at 400 cc of cardioplegia. The left ventricle was observed for distention on echocardiogram and manual palpation. Cold slush was placed into a sponge and topically on the RV while we
systemically cooled to 32 degrees centigrade.
Carbon dioxide was used to flood the field. An aortotomy was created and the location of both left and right coronary vessels were visualized in the root. The aorta was fully transected above the STJ. Stay sutures were placed at each commissure to
facilitate exposure. The leaflets were excised and sent for pathological assessment. Stay sutures were placed at each commissure. Next, the aortic sinuses were resected and the left main and right coronary buttons were mobilized. A limited
endarterectomy was performed at each coronary ostia in order to have something to sew to. 4-0 pledgeted sutures were used to retract the buttons. A total of 32 non- pledgeted 2-0 ethibond annular sutures were placed [id number] circumferentially.
I had sized this root to a 23mm freestyle sizer. The graft was brought in and the subannular suture was brought through the sewing cuff of the graft. A bovine pericardium gasket was then placed between the sutures and the xenograft was parachuted
into place. I then hand tied all sutures starting with each Marlon and worked my way around. A knife and punch was used to first create a small opening to perform left main coronary button anastomosis. The button was then trimmed accordingly and
using 5-0 Prolene with a bovine pericardial gasket, the button was reimplanted toward the [place]-left sinus. Volume was then used to fill the heart to estimate the location for the right coronary button anastomosis. In a similar fashion a knife and
punch was used to create a small opening in the timur-right sinus and anastomosis was created with 5-0 Prolene running fashion using bovine pericardium as a gasket. The ascending aorta was then resected and the valved conduit was trimmed accordingly.
The distal anastomosis was performed with a running 4-0 Prolene in a single layer.
De-airing maneuvers were performed and temporary bipolar ventricular pacing wires were placed on the base of the right ventricle and temporary atrial pacing wires at the SVC/Atrial junction. The patient was placed in a Trendelenburg position and
flows on bypass were lowered. The aortic cross clamp was removed and flows were slowly brought back up. The suture lines appeared hemostatic. Transesophageal echocardiography revealed no AI and appropriate prosthetic function. Once de-airing was
satisfactory, the left ventricular vent was removed. After verifying acceptable parameters, we initiated weaning from cardiopulmonary bypass. There was evidence of RV dysfunction and so I performed a pump assisted CABG x 1 to the mid RCA which was
also heavily calcified. The distal anastomosis was done with 6-0 prolene. The proximal was performed with a the aid of a heart string using 6-0 prolene. I then weaned from cardiopulmonary bypass once more and had normal RV function. Once we were off
cardiopulmonary bypass, the venous cannula was clamped and removed. A test dose of protamine was administered and the patient was monitored for any adverse reaction before resuming protamine. Once half of the protamine dose was delivered, pump
suckers were turned off and the systolic blood pressure was lowered for aortic decannulation. The aortic cannula was removed and pursestrings were tied down. All cannulation sites were oversewn with a 4-0 prolene. The suture lines were inspected and
hemostasis was confirmed. Mediastinal hemostasis was obtained. Two 24Fr Xavier drains were placed within the pericardium. The sternum was approximated with 4 #7 single and 3 #8 double stainless steel wires. Fascia was approximated with #1 vicryl
suture. The subcutaneous, dermis and epidermis were closed in layers in a running fashion. The skin wound was cleansed and dressed.
All instrument, sponge, and needle counts were confirmed to be correct x 2 at the end of the operation. The patient was transferred to the cardiac intensive care unit in critical but stable condition.
I, Dr. John Lyles, was present, scrubbed for, and performed all critical elements of this procedure.
John Lyles MD, MS
Cardiothoracic Surgeon
[facility]
This dictation was created using the [employer] dictation system. Please excuse any grammatical, typographical, or 'sound alike' errors
[2025-03-04 13:17] LABS: B.E. - POC -2.6 mmol/L; Glucose - POC 137 mg/dl (70-99); HCO3 - POC 23 mmol/L (21-28); Hematocrit - POC 24 % PCV (37-47); Hemodilution- POC Yes; Hemoglobin Calculated - POC 8.3; Ionized Calcium - POC 1.25 mmol/L (1.15-1.33); Lactate - POC 4.20 mmol/L (0.36-0.75); O2 Saturation %Calculated-POC 100.0 % (94-98); PCO2 - POC 41 mmHg (35-48); PO2 - POC 566 mmHg (83-108); POC Comment POST; Potassium - POC 3.5 mmol/L (3.5-5.1); Sodium - POC 145 mmol/L (136-145); Specimen Type - POC Arterial; pH - POC 7.36 (7.35-7.45)
[2025-03-04 13:30] LABS: Glucose - Point of Care 145 mg/dl (70-99)
--- NOTE | 2025-03-04 13:33 | CON.INTV ---
Consultation
Consultation Request
Date/Time Consultation Requested: 03/04/2025 - 1304
Date/Time Consultation Performed: 03/04/2025 - 8
Requesting Provider: RAE Mueller
Performing Provider: Dr. Oh
Reason for Consultation: s/p SAVR + CABG
Medical History
-
Chief Complaint: Elective SAVR + CABG
History of Present Illness:
74-year-old female with a past medical history of severe aortic valve stenosis, single-vessel CAD, history of A-fib, DM type II, hypertension, hyperlipidemia, anxiety/depression, asthma, insomnia, history of syncope, 2:1 AV block s/p PPM, PVD,
osteoporosis and hypothyroidism who presents for elective surgical aortic valve replacement. Patient known to the cardiothoracic surgery service with last visit on 02/12/[address] Lyles. Patient has known severe aortic valve stenosis. TAVR was
initially planned however there were concerning measurements from her CT hence it was not arranged. She was referred for surgical aortic valve replacement with possible root enlargement. Multiple options were discussed and the patient agreed for
surgical intervention. Today she underwent SAVR with #23 mm freestyle root replacement with reimplantation of coronaries and CABG x 1. Patient tolerated the procedure well and transferred to the CVICU for further care. Building Attendant services
consulted for additional management/recommendations.
When I saw the patient she was in bed, intubated on SIMV at 14/500/40%/5 with PIP 33 cmH2O, VTe 433 cc and breathing at 14 breaths/min. Heart rate 117, BP via A-line 114/61, PAP 32/19, CO/CI: 3.77/1.96, respectively. She saturating 100%.
Currently on dobutamine at 5 mcg/kg/min and on vasopressin at 0.02 units/min. Mediastinal chest tubes x [address]
PMHx: Bicuspid aortic valve, severe aortic stenosis, history of A-fib, DM type II, hypertension, hyperlipidemia, asthma, anxiety/depression, insomnia, lichen sclerosis, benign neoplasm of colon, history of syncope, hypothyroidism, CAD, 2:1 AV block
s/p PPM (11/18/2024), PVD, osteoporosis, left hip fracture, leukocytosis
PSHx: MAC, right rotator cuff repair and muscle repair, spigelian hernia repair x 5, [place] pacemaker implantation (11/18/2024)
Past Medical History
Past Medical History: Other (Above as per HPI)
Past Surgical History: Other (Above as per HPI)
Social History
Tobacco: Non-smoker
Alcohol: None
Drug: Marijuana
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
Family History
Family History: CAD (Father, mother + brother) and Other (Father: COPD; brother: Heart transplant)
Allergies / Home Medications
Allergies
Allergy/AdvReac Type Severity Reaction Status Date / Time
aspirin Allergy Rash Verified 02/17/25 10:17
NSAIDS (Non-Steroidal Allergy Swelling/HI Verified 02/17/25 10:17
Anti-Inflamma VES
Home Medications
�Medication �Instructions �Recorded �Confirmed �Last Taken �Type
albuterol sulfate 90 mcg/actuation 2 puff inhalation Q6H PRN wheezing 11/18/24 03/04/25 03/04/25 04:00 History
aerosol inhaler
levothyroxine 88 mcg tablet 88 mcg PO DAILY 11/18/24 03/04/25 03/03/25 08:00 History
losartan 100 mg tablet 100 mg PO DAILY 11/18/24 03/04/25 03/01/25 History
magnesium 200 mg tablet 200 mg PO DAILY 11/18/24 03/04/25 02/18/25 History
metformin 500 mg tablet 500 mg PO BID 11/18/24 03/04/25 03/03/25 18:00 History
metoprolol tartrate 50 mg tablet 50 mg PO BID 11/18/24 03/04/25 03/03/25 18:00 History
mirtazapine 15 mg tablet 15 mg PO HS 11/18/24 03/04/25 03/03/25 18:00 History
simvastatin 40 mg tablet 40 mg PO DAILY 11/18/24 03/04/25 03/03/25 18:00 History
acetaminophen 500 mg tablet 1,000 mg PO Q6H PRN pain 01/25/25 03/04/25 03/03/25 18:00 History
clopidogrel 75 mg tablet 75 mg PO DAILY 01/25/25 03/04/25 02/27/25 History
Cbn/Thc/Melatonin Gummie 1 unit PO HS Sleep 02/17/25 03/04/25 03/02/25 History
multivitamin 1 tab PO DAILY 02/17/25 03/04/25 02/18/25 History
vitamin B complex 1 tab PO DAILY 02/17/25 03/04/25 02/25/25 History
Review of Systems
-
Unable to Obtain full review of systems at this time due to: Patient Intubation
Vitals / Labs / Diagnostic Testing
Vital Signs
Temp Pulse Resp BP Pulse Ox
99.1 F 112 16 127/67 96
03/04/25 20:00 03/04/25 19:30 03/04/25 19:30 03/04/25 19:00 03/04/25 19:30
Lab Data
03/04/25 20:13
03/04/25 13:23
Laboratory Results
03/04/25 03/04/25 03/04/25
13:23 20:09 20:13
PT 23.2 H 16.1 H
INR 2.01 1.24
APTT 44.4 H 29.3
pH 7.37 7.40
pCO2 40 H 40 H
pO2 94 71 L
HCO3 23.1 24.8
O2 Delivery Level
Diagnostic Testing:
Physical Exam
-
HEENT: Normocephalic, Anicteric and Other (ETT in place)
Cardiovascular: S1/S2 and Peripheral Edema (Trace lower extremity edema bilaterally)
Respiratory: Wheeze (negative), Rales (negative), Rhonchi (negative), Non-Labored Respirations, Other (Mechanical breath sounds heard bilaterally) and Other (Mediastinal chest tubes x 2)
GI: Soft, Non Distended, Non Tender and Normal Bowel Sounds
Neurology: Tremors (negative) and Other (Sedated)
Skin: Warm and Dry
General: Respiratory Distress (negative), Comfortable, Fever (negative) and Chills (negative)
Assessment
-
Assessment: 74-year-old female with a past medical history of severe aortic valve stenosis, single-vessel CAD, history of A-fib, DM type II, hypertension, hyperlipidemia, anxiety/depression, asthma, insomnia, history of syncope, 2:1 AV block s/p
PPM, PVD, osteoporosis and hypothyroidism who presents for elective surgical aortic valve replacement. Patient known to the cardiothoracic surgery service with last visit on 02/12/[address] Lyles. Patient has known severe aortic valve stenosis.
TAVR was initially planned however there were concerning measurements from her CT hence it was not arranged. She was referred for surgical aortic valve replacement with possible root enlargement. Multiple options were discussed and the patient
agreed for surgical intervention. On 03/04/2025, she underwent SAVR with #23 mm freestyle root replacement with reimplantation of coronaries and CABG x 1. Patient tolerated the procedure well and transferred to the CVICU for further care.
Building Attendant services consulted for additional management/recommendations.
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
CAD, 2:1 AV block s/p PPM (11/18/2024), PVD, osteoporosis, left hip fracture, leukocytosis
Impression:
#Bicuspid aortic valve with aortic stenosis s/p AVR with #23 mm freestyle root replacement with reimplantation of coronaries + CABG x 1 (SVG�RCA) � POD #0
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
#Acute surgical blood loss anemia
#Acute postoperative coagulopathy
#Prediabetes with hyperglycemia (HbA1C: 6 on 01/26/2025)
#CAD
#DM type II
#Hypothyroidism
#Bronchial wall thickening seen on CT TAVR from 12/04/2024
Plan:
Ventilator settings reviewed
FiO2 will be weaned to maintain SpO2 >90-94%
Minute ventilation will be adjusted
Arterial blood gases will be monitored
Spontaneous breathing trial will be attempted with hopeful extubation after anesthesia/sedation wear off
prn nebulized bronchodilators - not currently bronchospastic
Pulmonary artery catheter parameters will be followed
Pressors/antihypertensive/inotropes/diuretics will be provided as needed
Maintain MAP>65
Replete electrolytes with K>4, Mg>2
Monitor chest tube output
Monitor hemoglobin
Monitor platelet count and coags
Transfuse blood products as needed to maintain Hb>7g/dL, plt>50k (given post-operative status)
CT surgery managing chest tubes
Monitor blood sugar to maintain euglycemia with goal BG 110-140
Insulin drip per protocol
Aspiration precautions
VAP prevention protocol
DVT prophylaxis
Early nutrition
Early mobilization
Critical care statement: A total of 46 minutes of critical care time was provided for this patient today. This includes management of ventilator, spontaneous breathing trial, arterial blood gases, pressors, of unstable vital signs, evaluation of the
patient at bedside, reviewing the patient's pertinent medical records including radiographs, microbiology, laboratory evaluations, and discussion with primary team and critical care nursing.
[2025-03-04 13:36] LABS: B.E. -2.0 mmol/L; HCO3 23.1 mmol/L (21-28); O2 Saturation % 99.2 % (94-98); PCO2 40 mmHg (32-35); PO2 94 mmHg (83-108); Potassium 3.7 mMOL/L (3.5-5.1); Sodium 140 mMOL/L (136-145)
[2025-03-04 13:47] LABS: Hematocrit 26.0 % (37.0-47.0); Hemoglobin 8.9 g/dL (12.0-16.0); Platelet Count 133 10^3/uL (130-400)
[2025-03-04] MEDS: NSS 500 IV (13:52)
[2025-03-04] MEDS: LR 250 ML IV ×2 (13:53→22:43)
[2025-03-04] MEDS: ANCEF 10 IV ×2 (13:53)
[2025-03-04 13:57] LABS: INR 2.01; PT 23.2 Sec (11.4-14.6)
[2025-03-04 13:58] LABS: APTT 44.4 Sec (23.4-35.0)
[2025-03-04 14:02] LABS: Glucose - Point of Care 113 mg/dl (70-99)
[2025-03-04] MEDS: CALCIUM GLUCONATE 100 IV (14:04)
[2025-03-04 14:05] LABS: B.E. - POC 6.1 mmol/L; Glucose - POC 127 mg/dl (70-99); HCO3 - POC 29 mmol/L (21-28); Hematocrit - POC 26 % PCV (37-47); Hemodilution- POC Yes; Hemoglobin Calculated - POC 8.9; Ionized Calcium - POC 1.00 mmol/L (1.15-1.33); Lactate - POC < 0.30 mmol/L (0.36-0.75); O2 Saturation %Calculated-POC 100.0 % (94-98); PCO2 - POC 36 mmHg (35-48); PO2 - POC 492 mmHg (83-108); POC Comment CPB; Potassium - POC 3.6 mmol/L (3.5-5.1); Sodium - POC 140 mmol/L (136-145); Specimen Type - POC Arterial; pH - POC 7.52 (7.35-7.45)
[2025-03-04 14:06] LABS: ACT+ - POC > 1003 Seconds (82-134)
[2025-03-04 14:06] LABS: ACT+ - POC > 1003 Seconds (82-134)
[2025-03-04 14:17] LABS: Blood Urea Nitrogen 9 mg/dl (7-17); Estimated Creatinine Clearance 86 ml/min; Glucose 130 mg/dl (70-99); Magnesium 2.4 mg/dl (1.6-2.3)
[2025-03-04] MEDS: NEURONTIN PO ×2 (14:19→16:29)
[2025-03-04] MEDS: NOVOLOG FLEXPEN SC ×2 (14:20→16:29)
[2025-03-04] MEDS: TYLENOL PO ×2 (14:21→21:02)
--- NOTE | 2025-03-04 14:23 | CON.CAR ---
Addendum entered and electronically signed by Luisito Spear DO 03/04/25 20:59:
I saw and examined the patient.
The Cheese Blender's note was reviewed and I agree with the note.
Comment:
Plan:
- Status post SAVR, root replacement, and CABG x 1 to RCA 03/04/2025
Cont post op care
Wean vent as able.
Wean pressors as able currently on levo at 2, dobutamine at 5, vasopressin at 0.02. CI 1.74
Hemoglobin 8.9 and platelets 1 33K. she received 4 units packed red blood cells and 2 of platelets IntraOp. was on plavix prior to admission
Continues with [facility] PPM placed
Discussed with nursing
Original Note:
Consultation
Consultation Request
Date/Time Consultation Performed: 03/04/25
Requesting Provider: Dr. Lyles
Performing Provider: Rosa Maria Jay PA-C for Dr. Spear
Reason for Consultation: SAVR
Medical History
-
Chief Complaint: SAVR
History of Present Illness:
Patient is a 74-year-old female with past medical history of aortic stenosis, PAF, diabetes, hypertension, hyperlipidemia, hypothyroidism who has been undergoing evaluation for aortic valve intervention. She was initially being considered for TAVR.
At time of cardiac catheterization she was noted to have single-vessel CAD in mid to distal LAD. During procedure she also had intermittent 2-1 and 3-1 AV block and underwent pacemaker insertion on 11/18/2024. By TAVR CT was noted to have very low
right coronary artery with high risk for right coronary occlusion with TAVR and ultimately was referred for SAVR/CABG x1 which took place today. Cardiology consulted for post op mgmt.
PMH:
Severe aortic stenosis
CAD of mid to distal LAD by cath 10/2024
History of syncope
Bifascicular block
2-1 and 3-1 AV block at time of cath s/p SJM PPM 11/18/24
PAF
DM2
HTN
HLD
Hypothyroidism
Past Medical History
Past Medical History: Other (in HPI)
Social History
Tobacco: Former Smoker (remote)
Alcohol: None
Personal:
Living: Alone
Employment: Retired
Family History
Family History: CAD
Allergies / Home Medications
Allergy/AdvReac Type Severity Reaction Status Date / Time
aspirin Allergy Rash Verified 02/17/25 10:17
NSAIDS (Non-Steroidal Allergy Swelling/HI Verified 02/17/25 10:17
Anti-Inflamma VES
�Medication �Instructions �Recorded �Confirmed �Type
albuterol sulfate 90 mcg/actuation 2 puff inhalation Q6H PRN wheezing 11/18/24 03/04/25 History
aerosol inhaler
levothyroxine 88 mcg tablet 88 mcg PO DAILY 11/18/24 03/04/25 History
losartan 100 mg tablet 100 mg PO DAILY 11/18/24 03/04/25 History
magnesium 200 mg tablet 200 mg PO DAILY 11/18/24 03/04/25 History
metformin 500 mg tablet 500 mg PO BID 11/18/24 03/04/25 History
metoprolol tartrate 50 mg tablet 50 mg PO BID 11/18/24 03/04/25 History
mirtazapine 15 mg tablet 15 mg PO HS 11/18/24 03/04/25 History
simvastatin 40 mg tablet 40 mg PO DAILY 11/18/24 03/04/25 History
acetaminophen 500 mg tablet 1,000 mg PO Q6H PRN pain 01/25/25 03/04/25 History
clopidogrel 75 mg tablet 75 mg PO DAILY 01/25/25 03/04/25 History
Cbn/Thc/Melatonin Gummie 1 unit PO HS Sleep 02/17/25 03/04/25 History
multivitamin 1 tab PO DAILY 02/17/25 03/04/25 History
vitamin B complex 1 tab PO DAILY 02/17/25 03/04/25 History
Review of Systems
-
Unable to obtain full review of systems at this time due to: Patient Intubation
Physical Exam
Vital Signs
Temp Pulse Resp BP Pulse Ox
96.2 F L 114 14 105/66 99
03/04/25 14:00 03/04/25 14:10 03/04/25 14:10 03/04/25 14:00 03/04/25 14:10
Lab Results
03/04/25 13:23
03/04/25 13:23
Physical Exam
General: Intubated and Other (on gunner hugger)
HEENT: Normocephalic and Moist Mucous Membranes
Respiratory: Clear and Non Labored Respirations
Cardiac: S1/S2, Regular Rhythm and Rub
GI: Soft, Non Tender and Non Distended
Musculoskeletal: No Clubbing, No Cyanosis and No Edema
Skin: Warm, Dry and Other (sternotomy incision c/d/i. CTs in place)
Neuro: Sedated
Impression / Plan
-
Primary Varnishing Unit Tool Setter: Dr. Fischer
Assessment:
Status post SAVR, root replacement, and CABG x 1 to RCA 03/04/2025
Severe aortic stenosis
CAD of mid to distal LAD by cath 10/2024
History of syncope
Bifascicular block
2-1 and 3-1 AV block at time of cath s/p SJM PPM 11/18/24
PAF
DM2
HTN
HLD
Hypothyroidism
ECHO 10/26/24: Preserved LV function, severe concentric LVH, mean aortic gradient of 51 mmHg with mild to moderate AR and valve area 0.6 cm�
Plan:
- Status post SAVR, root replacement, and CABG x 1 to RCA 03/04/2025
- Remains intubated and sedated
- Currently on levo at 2, dobutamine at 5, vasopressin at 0.02. CI 1.74
- Hemoglobin 8.9 and platelets 1 33K. Received 4 units packed red blood cells and 2 of platelets IntraOp. was on plavix prior to admission
- Presently sinus tachycardia with heart rates in 110s which is felt to be her [place] conduction at present. she does have SJM PPM placed in 10/2024. vpaced rhythm by EKG
- continue post op care
- was on lopressor 50mg BID and losartan 100mg daily preop
- d/w nursing
Data Reviewed
-
EKG: Tracing Personally Visualized and interpreted
Medical Tests (Nuc Med, Echo etc): Report Reviewed by me
Labs: Labs Reviewed by me
Old Records: Reviewed
[2025-03-04] MEDS: KCL 50 IV ×2 (14:27→15:27)
[2025-03-04] MEDS: DDAVP 56.25 MCG IV (14:33)
--- NOTE | 2025-03-04 14:46 | PTCARENOTE ---
Patient received from [facility] at 1320; Sedated and intubated; V-paced rhythm with ST on monitor; VSS; Epicardial AV wires present with temporary pacemaker settings DDI 45/16/0.6 45/20/2.0; Distant heart sounds; +1 DP and +2 radial pulses present; Lungs
diminished at bases; ETT size 7 positioned and secured at 21 cm right lip; Ventilator settings SIMV 14/500/5/5 FiO2 40%; CTx2 to -20 cm wall suction draining bloody drainage - no air leak, tidaling, or crepitus noted; Hypoactive BS; Rubi catheter
in place draining clear, yellow urine; Sternal midline incision glued, approximated, and ecchymotic - CDI, Right leg wrapped in LUIS wrap with packing underneath - CDI; Left radial A-line in place, [place]-yoyn present in [facility] Cordis at 39 cm - all lines
zeroed and leveled; PIVx1 - #20 LAC; Levo, insulin, precedex, vaso, and dobutamine infusing - see nursing flowsheets for further details; LR bolus given x1, iCal repleted x1, K repleted x2, DDAVP given x1, and awaiting FFP from blood bank; CVNP
Blanca notified regarding CI <2; see nursing documentation for further details.
CO: 2.71
CI: 1.41
SVR: 1,416
[2025-03-04 14:58] LABS: Glucose - Point of Care 151 mg/dl (70-99)
--- NOTE | 2025-03-04 15:32 | W.PN.UPDATE ---
Update Note
Progress Note Update
74-year-old female was electively admitted for AVR with root replacement due to bicuspid aortic valve with aortic stenosis.
IV fluids: 2100
U.O.:� 1300
Blood:� 4PRBC, 2Plts
Wires:� A + V
Drips: Levo @ 4, Dobutamine @ 5, Vasopressin started in CVICU
�
NEURO: sedated, pupils +2mm B/L
RESP: #8OT @23cm> 500/60%/14/. Lungs clear B/L. 2 mediastinal (80cc on arrival) chest tubes to -20cm suction. Sanguineous drainage
CV: RRR +S1, S2, no S3, no�rub, no murmur. Dermabond to median sternotomy. RIJ w/[place] locked @ 41cm. PA 34/21; CVP 14
ABD: round, soft, no BS
EXT: no edema, +2/4 DP pulses B/L, no femoral bruit, RLE LUIS wrap intact; left radial A-line intact
: Rubi with clear yellow urine
�
A/P: POD #0 s/p AVR #23mm Freestyle root replacement w/reimplantation of coronaries, CABG x 1 SVG-RCA�
MYRNA: report pending
- wean and extubate
- will need instruction regarding antibiotic prophylaxis for dental and invasive procedures
- keep SBP 90-110mmHg
- keep Dobutamine @ 5
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
- pacer interrogated by rep and functioning post op
�
# acute surgical blood loss anemia-expected
- initial Hb 8.9>trend CBC
# Acute post op coagulopathy (INR 2/PTT 44)
- DDAVP and 2 FFP given
�
# CAD
-ASA contraindicated d/t allergy
- resume Plavix when tolerating solids
- resume beta-terrance and statin POD #1
�
# T2DM (A1C 6.0)
- insulin infusion x 48h
- consult DM nurse practitioner
- on MFM 500mg BID @ home
�
# Hypothyroidism
- resume�Levothyroxine 88mcg daily on POD #1
[2025-03-04] MEDS: PACERONE PO (16:29)
[2025-03-04 16:34] LABS: Glucose - Point of Care 144 mg/dl (70-99)
--- NOTE | 2025-03-04 16:40 | PTCARENOTE ---
RT in room and patient placed on CPAP breathing trial; EPO ABG due at 1710
[2025-03-04 17:03] LABS: Glucose - Point of Care 138 mg/dl (70-99)
[2025-03-04 17:15] LABS: B.E. - POC 4.5 mmol/L; Blood Urea Nitrogen - POC 9 mg/dl (3-120); Chloride - POC 108 mmol/L (96-111); Creatinine - POC 0.68 mg/dl (0.3-1.0); Glucose - POC 150 mg/dl (70-99); HCO3 - POC 28 mmol/L (21-28); Hematocrit - POC 24 % PCV (37-47); Hemodilution- POC No; Hemoglobin Calculated - POC 8.1; Ionized Calcium - POC 1.24 mmol/L (1.15-1.33); Lactate - POC 2.15 mmol/L (0.36-0.75); O2 Saturation %Calculated-POC 98.1 % (94-98); PCO2 - POC 37 mmHg (35-48); PO2 - POC 96 mmHg (83-108); Potassium - POC 4.7 mmol/L (3.5-5.1); Sodium - POC 146 mmol/L (136-145); Specimen Type - POC Arterial; pH - POC 7.49 (7.35-7.45)
--- NOTE | 2025-03-04 17:23 | PTCARENOTE ---
EPOC ABG's reviewed with YAKOV Sadler; RT at bedside; Patient extubated at 1720 and placed on 6L NC
[2025-03-04] MEDS: OFIRMEV 100 IV (17:29)
[2025-03-04 17:36] LABS: Hematocrit 24.2 % (37.0-47.0); Hemoglobin 8.4 g/dL (12.0-16.0); Platelet Count 152 10^3/uL (130-400)
[2025-03-04 18:07] LABS: Glucose - Point of Care 129 mg/dl (70-99)
[2025-03-04] MEDS: DILAUDID 0.5 MG IV ×2 (18:18→22:34)
--- NOTE | 2025-03-04 20:00 | PTCARENOTE ---
Assumed care of the patient at 1900. AOx3, drowsy. ST to V-paced rhythm on CM; AV wires see worklist for settings; heart tones audible, RRR; pulses palpable throughout, no edema. Lungs dim at the bases, CTx2 to -20 cm wall suction, no air leak,
tidaling, or crepitus noted, on 6LNC and switched to 10 L midflow for SpO2 [place] and PO2 lower on ABG. Hypoactive BS, abdomen obese, SNT, no nausea, tolerating ice chips. Rubi catheter in place draining clear, yellow urine. MSI CDI ecchymotic
PROJECT MANAGEMENT PROFESSIONAL with Dermabond, RLE LUIS wrap with packing CDI; L radial A-line, RIJ Cordis/[place] at 39 cm, PIV x1; all applicable lines leveled, zeroed and calibrated. Levo, insulin, vaso, and dobutamine gtts - Levo/Vaso on standby. See nursing worklist for
additional intervention details.
[2025-03-04 20:05] LABS: Glucose - Point of Care 123 mg/dl (70-99)
[2025-03-04 20:18] LABS: B.E. 0 mmol/L; HCO3 24.8 mmol/L (21-28); O2 Saturation % 98.0 % (94-98); PCO2 40 mmHg (32-35); PO2 71 mmHg (83-108); Potassium 4.4 mMOL/L (3.5-5.1)
[2025-03-04 20:25] LABS: Hematocrit 24.4 % (37.0-47.0); Hemoglobin 8.6 g/dL (12.0-16.0)
[2025-03-04 20:31] LABS: APTT 29.3 Sec (23.4-35.0); INR 1.24; PT 16.1 Sec (11.4-14.6)
[2025-03-04] MEDS: ANCEF 5 IV (20:56)
[2025-03-04] MEDS: SENOKOT 8.6 MG PO (20:56)
[2025-03-04] MEDS: NEURONTIN 100 MG PO (21:00)
[2025-03-04] MEDS: PACERONE 200 MG PO (21:00)
[2025-03-04 21:59] LABS: Glucose - Point of Care 144 mg/dl (70-99)
[2025-03-04 22:03] LABS: B.E. 0.8 mmol/L; HCO3 25.3 mmol/L (21-28); O2 Saturation % 97.4 % (94-98); PCO2 39 mmHg (32-35); PO2 72 mmHg (83-108)
[2025-03-04] MEDS: NITROGLYCERIN PREMIX 250 IV (22:29)
[2025-03-04 22:58] LABS: Glucose - Point of Care 123 mg/dl (70-99)
[2025-03-05] VITALS (26 sets, daily range): BP systolic 91–134; BP diastolic 45–81; PULSE 116; O2SAT 96; BMI 31.7
--- NOTE | 2025-03-05 | PTCARENOTE ---
Cardene started per protocol and switched to Nitro for BP control due to patient's SpO2 and ABG results. Dilaudid for pain. Patient's pressure lower, LR bolus and levo restarted. The patient continues to tolerate ice chips without nausea. Sleeping
between care, assessment of needs ongoing.
[2025-03-05 00:14] LABS: Glucose - Point of Care 126 mg/dl (70-99)
[2025-03-05 00:38] LABS: B.E. 1.2 mmol/L; HCO3 26.0 mmol/L (21-28); O2 Saturation % 99.0 % (94-98); PCO2 41 mmHg (32-35); PO2 101 mmHg (83-108)
[2025-03-05 00:40] LABS: O2 Therapy 10L midflow
[2025-03-05 01:07] LABS: Glucose - Point of Care 123 mg/dl (70-99)
[2025-03-05 02:04] LABS: Glucose - Point of Care 105 mg/dl (70-99)
[2025-03-05] MEDS: ALBUMIN 5% 250 IV (03:32)
[2025-03-05] MEDS: ROXICODONE 5 MG PO ×4 (03:48→21:41)
[2025-03-05 04:12] LABS: Glucose - Point of Care 104 mg/dl (70-99)
[2025-03-05] MEDS: ANCEF 5 IV ×2 (04:58→12:21)
[2025-03-05 05:05] LABS: B.E. 1.1 mmol/L; HCO3 26.0 mmol/L (21-28); O2 Saturation % 98.9 % (94-98); PCO2 42 mmHg (32-35); PO2 87 mmHg (83-108); Potassium 4.5 mMOL/L (3.5-5.1)
[2025-03-05] MEDS: SYNTHROID 88 MCG PO (05:06)
[2025-03-05 05:41] LABS: Hematocrit 22.0 % (37.0-47.0); Hemoglobin 7.5 g/dL (12.0-16.0); Mean Corp Hgb Conc. 34.1 g/dL (33.0-37.0); Mean Corpuscular Volume 89.1 fL (81.0-99.0); Platelet Count 145 10^3/uL (130-400); Red Cell Dist. Width 13.9 % (11.5-14.5)
[2025-03-05] MEDS: TYLENOL 975 MG PO ×3 (06:07→20:22)
[2025-03-05 06:11] LABS: Blood Urea Nitrogen 14 mg/dl (7-17); Calcium 8.2 mg/dl (8.4-10.2); Carbon Dioxide 28 mmol/L (22-30); Chloride 111 mmol/L (98-107); Estimated Creatinine Clearance 86 ml/min; Glucose 110 mg/dl (70-99); Magnesium 1.9 mg/dl (1.6-2.3); Potassium 4.4 mmol/L (3.5-5.1); Sodium 141 mmol/L (135-145); eGFR > 60.00
[2025-03-05 06:12] LABS: Glucose - Point of Care 121 mg/dl (70-99)
--- NOTE | 2025-03-05 06:25 | PTCARENOTE ---
Patient on/off nitro per protocol, as high as 40 mcg/min. Oxycodone for pain, reported some relief. NC to 6LNC, O2 sat 93-95%. Insulin gtt maintained. Albumin 5% given. EKG critical for prolonged QTc, CVPA aware. In AM, Hgb 7.5, 1 uPRBC infusing at
this time.
--- NOTE | 2025-03-05 06:31 | PTCARENOTE ---
Patient on/off nitro per protocol, as high as 40 mcg/min. Oxycodone for pain, reported some relief. NC to 6LNC, O2 sat 93-95%. Insulin gtt maintained. Albumin 5% given. In AM, Hgb 7.5, 1 uPRBC infusing at this time.
[2025-03-05] MEDS: DOBUTREX 500 MG 250 IV (07:03)
--- NOTE | 2025-03-05 07:50 | W.PN.CT ---
Today's Communication / Plan
-
-pod #1
-no significant issues overnight
-mild hypoxemia on high-dose of Cardene- resolved with switching to Nitro
-sbp 90-[address] Lyles, will liberate to 90-130 today
-CI 2.4, CO 4.6. Drips: Dobut 5, Nitro 5, Insulin
-CT outputs: 2 meds 135/465 in 12/24 hrs
-Hg 7.5 - gave 1 pRBC
-wean off Dobut as tolerated
-hold BB while on Dobutamine
-will continue po Amio (has remote hx of a-fib)
-[facility]am pacer was checked postop (also has epicardial pw)
-maintain Rubi for critical I/O
-current meds (Plavix, Amio, iv iron, Synthroid, Protonix, Gabapentin). Re-start statin. No ASA d/t allergy
-avoid NSAIDS d/t allergy
-encourage IS, OOB
Assessment / Plan
-
Impression:
- Bicuspid aortic valve with - s/p AVR #23mm Freestyle root replacement w/reimplantation of coronaries, CABG x 1 SVG-RCA� by Dr. Lyles on 03/04/25, pod #1
- s/p [facility]am pacer 11/18/24
- hx syncope
- hx of a-fib in 2016
- CAD/ 70% distal LAD- ASA contraindicated d/t allergy. Will resume Plavix when tolerating solids
- Allergy to NSAIDs with hives/swelling
- HTN/HLD
- DM II (HgA1c 6.0)
- Anxiety/depression
- Asthma
- Insomnia
- Benign neoplasm of colon
- Osteoarthritis
- Hypothyroidism
- PVD
- L hip ORIF
- Spigelian hernia repair x5
- Acute postop blood loss anemia/ coagulopathy - s/p 4 pRBCs, 2 unit platelets, 2 FFP, DDAVP
- Acute postop pulmonary insufficiency/atelectasis
- Acute postop hypovolemia with subsequent hypervolemia
Discussed patient care with: Nursing and Care Team
Subjective
-
Date of Service: March 04, 2025
Objective Data
-
Lab Results
03/04/25 20:13
03/04/25 13:23
PT 16.1 Sec (11.4-14.6) H 03/04/25 20:13
INR 1.24 03/04/25 20:13
APTT 29.3 Sec (23.4-35.0) 03/04/25 20:13
Vital Signs
Vital Signs
Temp Pulse Resp BP Pulse Ox
99 F 108 14 96/52 96
03/04/25 23:00 03/04/25 23:30 03/04/25 23:30 03/04/25 23:00 03/04/25 23:30
CT Intake/Output/Weight
03/04/25 03/04/25 03/05/25
06:59 18:59 06:59
Intake Total 1607.05 / 2225.25 618.2 / 2225.25
Output Total 985 / 1385 400 / 1385
Balance 622.05 / 840.25 218.2 / 840.25
SaO2: 96
Physical Exam
-
General: Awake and AOx3
Cardiovascular: Regular rate & rhythm, No Murmurs and No Rub
Respiratory: Decreased Breath Sounds
Sternum: Stable
Incision: Clean, Dry and Intact
Extremities: Edema +1 (2+ DPs b/l)
Abdomen: soft, nontender, nondistended, + decreased bowel sounds
Data Reviewed
-
Lab Results: Results Reviewed
Medications: Active Meds Reviewed
Chest X-Ray: Report Reviewed and Image Reviewed
ECG: Report Reviewed and Image Reviewed
--- NOTE | 2025-03-05 07:59 | PN.DE.MGMTRT ---
Insulin Management
- -
03/05/2025: Diabetes Management Consult
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
replacement. Patient has known severe aortic valve stenosis.
States was told she was pre-diabetic and has been taking Metformin 500mg twice a day. Has a monitor and has been testing her blood sugars at home.
A1C 6.0%, Cr 0.6, eGFR >60
Pt awake, alert, oriented, sitting up in chair, offers no complaints, able to discuss diabetes care plan.
Now POD #1 s/p AVR #23mm Freestyle root replacement w/reimplantation of coronaries, CABG x 1 SVG-RCA.
Currently on Critical care glycemic protocol, glucose range 104 to 126, receiving 1.8 to 4 units of insulin/hr
Will cont insulin infusion today and transition off tomorrow to Metformin at OP dose.
Discussed with Nurse, will cont to monitor
Diabetes History
- -
Type of Diabetes: 2
Pre-Admission Diabetes Regimen
03/04/25 03/05/25
13:23 04:55
Creatinine 0.4 L 0.6
Insulin Pump Settings
IP Diabetes Regimen
03/04/25 03/04/25 03/04/25
13:23 13:28 14:01
Glucose 130 H
POC Glucose 145 H 113 H
03/04/25 03/04/25 03/04/25
14:57 16:32 17:01
Glucose
POC Glucose 151 H 144 H 138 H
03/04/25 03/04/25 03/04/25
18:05 20:03 21:58
Glucose
POC Glucose 129 H 123 H 144 H
03/04/25 03/05/25 03/05/25
22:57 00:13 01:02
Glucose
POC Glucose 123 H 126 H 123 H
03/05/25 03/05/25 03/05/25
02:02 04:11 04:55
Glucose 110 H
POC Glucose 105 H 104 H
03/05/25
06:11
Glucose
POC Glucose 121 H
Meal type: Dinner
Patient Education
[2025-03-05 08:11] LABS: Glucose - Point of Care 110 mg/dl (70-99)
--- NOTE | 2025-03-05 08:21 | W.PN.ANS.POP ---
Anesthesia Post Operative
- Anesthesia Post Op Note
Vital Signs Stable-See Nursing Note: Yes (remains on Doutamin ans Ntg gtts)
Airway Patent: Yes
Adequate Pain Control: Yes
Change in Mental Status: No
Current Postoperative Nausea & Vomiting: No
Anesthesia Complications: No
General Anesthetic Recall: No
Unplanned Admission: No
Post Op Hydration Adequate: Yes
--- NOTE | 2025-03-05 08:22 | W.PN.INTV ---
Today's Communication / Plan
Recommendations
Continue dobutamine and wean off as tolerated while trending MVO2 with goal >65
Goal BG 110�140
Pain control
Up OOB as tolerated
Removal of chest tubes per CT surgery
Director Patient Accounting services will continue to follow along while patient remains CVICU status
Assessment
-
Assessment: 74-year-old female with a past medical history of severe aortic valve stenosis, single-vessel CAD, history of A-fib, DM type II, hypertension, hyperlipidemia, anxiety/depression, asthma, insomnia, history of syncope, 2:1 AV block s/p
PPM, PVD, osteoporosis and hypothyroidism who presents for elective surgical aortic valve replacement. Patient known to the cardiothoracic surgery service with last visit on 02/12/[address] Lyles. Patient has known severe aortic valve stenosis.
TAVR was initially planned however there were concerning measurements from her CT hence it was not arranged. She was referred for surgical aortic valve replacement with possible root enlargement. Multiple options were discussed and the patient
agreed for surgical intervention. On 03/04/2025, she underwent SAVR with #23 mm freestyle root replacement with reimplantation of coronaries and CABG x 1. Patient tolerated the procedure well and transferred to the CVICU for further care.
Director Patient Accounting services consulted for additional management/recommendations.
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
CAD, 2:1 AV block s/p PPM (11/18/2024), PVD, osteoporosis, left hip fracture, leukocytosis
Impression:
#Bicuspid aortic valve with aortic stenosis s/p AVR with #23 mm freestyle root replacement with reimplantation of coronaries + CABG x 1 (SVG�RCA) � POD #1
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
#Acute surgical blood loss anemia
#Acute postoperative coagulopathy
#Prediabetes with hyperglycemia (HbA1C: 6 on 01/26/2025)
#CAD
#DM type II
#Hypothyroidism
#Bronchial wall thickening seen on CT TAVR from 12/04/2024
Plan:
Patient successfully extubated on 03/04/2025, and is currently breathing comfortably on 6 L/min saturating 96%
Continue weaning down supplemental O2 flow rate while maintaining SpO2 >90-94%
prn nebulized bronchodilators - not currently bronchospastic
Encourage IS use q1hr while awake
Pulmonary artery catheter parameters will be followed
Pressors/antihypertensive/inotropes/diuretics will be provided as needed
Maintain MAP>65
Replete electrolytes with K>4, Mg>2
Monitor chest tube output (meds x2)
Monitor hemoglobin
Monitor platelet count and coags
Transfuse blood products as needed to maintain Hb>7g/dL, plt>50k (given post-operative status)
CT surgery managing chest tubes
Monitor blood sugar to maintain euglycemia with goal BG 110-140
Insulin drip per protocol
Aspiration precautions
DVT prophylaxis
Early nutrition
Early mobilization
Critical care statement: A total of 41 minutes of critical care time was provided for this patient today. This includes management of ventilator, spontaneous breathing trial, arterial blood gases, pressors, of unstable vital signs, evaluation of the
patient at bedside, reviewing the patient's pertinent medical records including radiographs, microbiology, laboratory evaluations, and discussion with primary team and critical care nursing.
Subjective Dataa
Subjective Data
Date of Service:
Date of Service: March 05, 2025
Chief Complaint: Director Patient Accounting Follow Up
Subjective:
Patient seen today. On insulin drip at 3.8 units/h and dobutamine at 4 mcg/kg/min. Heart rate 110. Breathing comfortably. Tired today.
Review of Systems
General: Other (Negative unless mentioned above)
Objective Data
Data Reviewed
Vital Signs / I&O / Oxygen:
Vital Signs
Temp Pulse Resp BP Pulse Ox
99.4 F 112 20 110/47 92
03/05/25 15:00 03/05/25 15:00 03/05/25 15:00 03/05/25 15:00 03/05/25 15:00
Intake and Output
03/04/25 03/05/25 03/06/25
06:59 06:59 06:59
Intake Total 2881.65 / 2920.55 1599.7 / 1599.7
Output Total 1660 / 1690 1220 / 1220
Balance 1221.65 / 1230.55 379.7 / 379.7
SaO2 [CPAP/PSV] 99
SaO2 [SIMV] 100
SaO2 92
Nasal Cannula flow liters per 2
minute
Physical Exam
General: Respiratory Distress (negative), Comfortable and Chills (negative)
HEENT: Normocephalic and Anicteric
Cardiovascular: S1-S2 and Peripheral Edema (trace TAE)
Respiratory: Wheeze (negative), Crackles (negative), Rhonchi (negative), Non-Labored Respirations and Chest Tube (Mediastinal chest tubes x 2)
GI: Soft, Distended, Non Tender and Normal Bowel Sounds
Neurology: Awake, Alert (Drowsy at times) and Tremors (negative)
Skin: Warm, Dry, Cyanosis (negative) and Jaundice (negative)
Labs/Micro/Reports
Lab Data
03/05/25 04:55
03/05/25 04:55
Laboratory Results
03/04/25 03/04/25 03/04/25
20:09 20:13 21:57
PT 16.1 H
INR 1.24
APTT 29.3
pH 7.40 7.42
pCO2 40 H 39 H
pO2 71 L 72 L
HCO3 24.8 25.3
O2 Delivery Level
03/05/25 03/05/25
00:22 04:55
PT
INR
APTT
pH 7.41 7.40
pCO2 41 H 42 H
pO2 101 87
HCO3 26.0 26.0
O2 Delivery Level 10l midflow
--- NOTE | 2025-03-05 08:30 | PTCARENOTE ---
Patient received from third shift lieutenant RN; AAOx3, responds spontaneously to RN and follows commands; ELY SHOSHONE; ST with occasional V-pacing on monitor; VSS; PPM present; Epicardial AV wires present with temporary pacemaker settings DDI 45/16/0.6 45/20/2.0; +2
DP and radial pulses present; Shallow respirations; Lungs diminished at bases; IS 750 ml; CTx2 to -20 cm wall suction draining serosanguineous drainage - no air leak, tidaling, or crepitus noted; Normoactive BS; Rubi catheter in place draining
clear, yellow urine; Sternal midline incision glued, approximated, and ecchymotic - CDI, Right leg wrapped in LUIS wrap with packing underneath - CDI, Right groin incision glued, approximated, and ecchymotic; Left radial A-line in place, Porter-yony
present in RIJ Cordis at 39 cm - all lines zeroed and leveled; PIVx1 - #20 LAC; Insulin, nitroglycerin, and dobutamine infusing - see nursing flowsheets for further details; 1 U PRBC's given; see nursing documentation for further details.
CO: 5.21
CI: 2.71
SVR: 844
[2025-03-05] MEDS: PLAVIX 75 MG PO (08:43)
[2025-03-05] MEDS: SENOKOT 8.6 MG PO ×2 (08:43→20:17)
[2025-03-05] MEDS: MAGNESIUM OXIDE 400 MG PO ×2 (08:43→20:17)
[2025-03-05] MEDS: PACERONE 200 MG PO ×3 (08:43→21:41)
[2025-03-05] MEDS: LIDOCAINE 4% PATCH 1 PATCH TOPICAL (08:43)
[2025-03-05] MEDS: BACTROBAN 2% OINTMENT 1 APPLIC NASAL ×2 (08:43→20:18)
[2025-03-05] MEDS: NEURONTIN 100 MG PO ×3 (08:43→21:41)
[2025-03-05] MEDS: PROTONIX 40 MG PO (08:43)
[2025-03-05] MEDS: NOVOLOG FLEXPEN 4 UNITS SC ×3 (09:00→18:04)
[2025-03-05] MEDS: NOVOLIN R INSULIN INFUSION 100 IV (09:28)
[2025-03-05 10:14] LABS: Glucose - Point of Care 107 mg/dl (70-99)
[2025-03-05] MEDS: LASIX 40 MG IV ×2 (10:20→20:17)
[2025-03-05 12:08] LABS: Glucose - Point of Care 86 mg/dl (70-99)
--- NOTE | 2025-03-05 12:15 | W.PN.CARDCBS ---
Addendum entered and electronically signed by Sara Pete DO 03/05/25 19:17:
I saw and examined the patient.
The [employer] [employer] [facility]'s note was reviewed and I agree with the note.
Comment: Patient seen and examined with nursing at bedside. Overall feels sore postop and fatigued.
GEN: No distress, awake, alert, oriented x3. nc O2
HEENT: mmm
LUNGS: Decreased bilaterally, no wheezes/rales
CV: Reg and tachy, S1/S2, no murmur
ABD: soft, ND
EXT: 1+ edema of bilateral lower extremity
SKIN: Sternotomy incision clean dry and intact. Chest tubes in place
Plan:
s/p AVR #23mm Freestyle root replacement w/reimplantation of coronaries, CABG x 1 SVG-RCA� by Dr. Lyles on 03/04/25, pod #1
-Doing well postop
-Wean nitroglycerin drip off
-Wean dobutamine drip off
-Diurese
-Status post 1 unit packed red blood cells for hemoglobin postop 7.5 g/dL
-[employer] pacemaker was checked postop
Original Note:
Today's Communication / Plan
-
Continue postop care
Impression / Plan
-
Primary Supervisor Paper Testing: Dr. Fischer
Assessment:
s/p AVR #23mm Freestyle root replacement w/reimplantation of coronaries, CABG x 1 SVG-RCA 03/04/25
Severe aortic stenosis
CAD of mid to distal LAD by cath 10/2024
History of syncope
Bifascicular block
2-1 and 3-1 AV block at time of cath s/p SJM PPM 11/18/24
PAF
DM2
HTN
HLD
Hypothyroidism
ECHO 10/26/24: Preserved LV function, severe concentric LVH, mean aortic gradient of 51 mmHg with mild to moderate AR and valve area 0.6 cm�
Plan:
- Status post SAVR, root replacement, and CABG x 1 SVG to RCA 03/04/2025
- wean supp O2 as able
- currently on dobut@4, continue to wean as able
- in ST on review of tele with 1 6beat run of NSVT. SJM PPM in place. K /mag stable
- hgb 7.5 on 03/05 s/p 1 additional PRBC this AM. in total has received 5 U PRBCs. was on plavix prior to admission
- diurese as able
- continue post op care
- was on lopressor 50mg BID and losartan 100mg daily preop
- d/w nursing
Progress Note - Supervisor Paper Testing
Subjective
Date of Service: March 05, 2025
Reports feels tired
Objective
Labs:
03/05/25 04:55
03/05/25 04:55
Labs
Hgb 7.5 g/dL (12.0-16.0) L 03/05/25 04:55
Hct 22.0 % (37.0-47.0) L 03/05/25 04:55
Plt Count 145 10^3/uL (130-400) 03/05/25 04:55
PT 16.1 Sec (11.4-14.6) H 03/04/25 20:13
INR 1.24 03/04/25 20:13
APTT 29.3 Sec (23.4-35.0) 03/04/25 20:13
Sodium 141 mmol/L (135-145) 03/05/25 04:55
Potassium 4.4 mmol/L (3.5-5.1) 03/05/25 04:55
BUN 14 mg/dl (7-17) 03/05/25 04:55
Creatinine 0.6 mg/dL (0.6-1.0) 03/05/25 04:55
Glucose 110 mg/dl (70-99) H 03/05/25 04:55
Vital Signs and I&O:
Vital Signs
Temp Pulse Resp BP Pulse Ox
99.0 F 116 13 126/61 95
03/05/25 12:00 03/05/25 12:04 03/05/25 12:04 03/05/25 12:00 03/05/25 12:04
Vital Signs
Temp Pulse Resp BP Pulse Ox
99.0 F 116 13 126/61 95
03/05/25 12:00 03/05/25 12:04 03/05/25 12:04 03/05/25 12:00 03/05/25 12:04
Intake & Output
03/03/25 03/04/25 03/05/25 03/06/25
07:59 07:59 07:59 07:59
Intake Total 2920.55 / 2999.45 975.5 / 975.5
Output Total 1690 / 1725 760 / 760
Balance 1230.55 / 1274.45 215.5 / 215.5
Physical Exam
Physical Exam
GEN: No distress, awake, alert, oriented x3. Sitting in chair. On supplemental O2
HEENT: supple, anicteric, mmm, EOMI
LUNGS: Decreased bilaterally, no wheezes/rales
CV: Reg and tachy, S1/S2, no murmur
ABD: soft, ND
EXT: No cyanosis, clubbing. 1+ edema of bilateral lower extremity
NEURO: Gross non-focal
SKIN: Warm, pink, dry. No rash. Sternotomy incision clean dry and intact. Chest tubes in place
[2025-03-05] MEDS: COZAAR 100 MG PO (12:24)
[2025-03-05] MEDS: FERRLECIT 110 MG IV (13:00)
--- NOTE | 2025-03-05 13:00 | PTCARENOTE ---
Dobutamine weaned down as per CVNP Blanca Sadler; Nitro weaned off and PO Losartan ordered for patient; Patient OOB to chair with RN and cardiac rehab; Patient resting comfortably in chair
--- NOTE | 2025-03-05 13:12 | CM ---
Chart reviewed. Patient is independent of ADLS, lives alone in a apartment, 1 ABY, 0 DME. Patient with a supportive brother who lives upstairs and daughter who lives close to help as well. Plan is for the patient to return home with CT
Transitional RN. CM to follow
[2025-03-05 14:23] LABS: Glucose - Point of Care 139 mg/dl (70-99)
[2025-03-05] MEDS: NSS IV (14:38)
[2025-03-05 16:06] LABS: Glucose - Point of Care 118 mg/dl (70-99)
--- NOTE | 2025-03-05 16:23 | W.PN.UPDATE ---
Update Note
Progress Note Update
Patient with own [employer] dual chamber PPM interrogated and functioning appropriately per device rep on 03/04. Two epicardial atrial and 1 bipolar ventricular wire removed without difficulty. Bedrest x 1 hour and vital signs [id number] x 4 per
protocol.
--- NOTE | 2025-03-05 16:30 | PTCARENOTE ---
Epicardial AV wires pulled at bedside by Blanca Sadler; No complications noted; VSS; Patient resting comfortably in bed at this time
[2025-03-05 18:01] LABS: Glucose - Point of Care 85 mg/dl (70-99)
--- NOTE | 2025-03-05 20:00 | PTCARENOTE ---
Resumed care of the patient at 1900. AOx3, AMBLER, SANDERS. ST on CM, PPM, epicardial AV wires pulled during previous shift, no overt signs of bleeding noted, heart tones audible, pulses present, generalized anasarca nonpitting +1. Lungs diminished at the
bases, breathing shallowly, inspiratory wheeze noted, CVPA advised to encourage IS use - 750mL, CTx2 to -20 cm wall suction, no air leak, tidaling, or crepitus noted. BS normoactive, abdomen obese. Rubi catheter draining clear, yellow urine,
oliguric, 40 mg IV Lasix administered. MSI CDI HAND HOSE CUTTER, ecchymotic, RSVG and R groin site CDI HAND HOSE CUTTER, layla wrap removed, ecchymotic to the surrounding areas, no tenderness per patient. L radial ander in place, not correlating with cuff pressures at this
time, RIJ Cordis/Magalis Paulina catheter at 39 maintained, PIVx1 - applicable lines leveled, zeroed and calibrated. Insulin and dobutamine infusing per protocol. See nursing work list for further titration and intervention details.
[2025-03-05 20:08] LABS: Glucose - Point of Care 153 mg/dl (70-99)
[2025-03-05] MEDS: KCL 20 MEQ PO (20:18)
[2025-03-05] MEDS: REMOVE LIDOCAINE PATCH 1 PATCH REMOVE (20:18)
[2025-03-05 22:07] LABS: Glucose - Point of Care 76 mg/dl (70-99)
[2025-03-05 23:03] LABS: Glucose - Point of Care 92 mg/dl (70-99)
[2025-03-06] VITALS (35 sets, daily range): BP systolic 90–143; BP diastolic 43–80; PULSE 116; O2SAT 94; BMI 31.9
[2025-03-06 00:02] LABS: Glucose - Point of Care 115 mg/dl (70-99)
--- NOTE | 2025-03-06 00:12 | PTCARENOTE ---
Patient sleeping comfortably, ander pressures lower than cuff pressures. 15 mL of urine hourly for the past couple of hours after receiving Lasix, CVPA aware, continue to monitor. Oxycodone for referred back pain. Assessment of needs ongoing.
[2025-03-06 01:05] LABS: Glucose - Point of Care 96 mg/dl (70-99)
[2025-03-06 02:04] LABS: Glucose - Point of Care 111 mg/dl (70-99)
[2025-03-06] MEDS: ROXICODONE 5 MG PO ×3 (02:07→19:21)
--- NOTE | 2025-03-06 03:51 | W.PN.CT ---
Addendum entered and electronically signed by Tab Beltran MD 03/06/25 09:34:
I saw and examined the patient.
The PA's note was reviewed and I agree with the note.
Comment:
POD#2: Freestyle root replacement w/reimplantation of coronaries, CABG x 1 SVG-RCA
No major overnight events. Tm 100.3. 114. 28/19. CVP 16. CI: 2.49. 96%
GTTS: dobutamine 3. CT: 135 (270). UO: 1465 last 24h (+bang). Hgb 8.0. Creat 0.9
- Transfuse 1U PRBC
- Wean dobutamine to 2 and HOLD
- Diuresis today
- Maintain CTs today - hopeful removal tomorrow
- Maintain SGB today
- IS/OOB
Original Note:
Today's Communication / Plan
-
Plan:
-No major issues overnight. Hemodynamically and neurologically intact
-Dobutamine weaned to 4 yesterday, on insulin gtt per protocol
-Wean Dobutamine today, CI 2.92, MVO2 56.1%
-Wean off insulin gtt today per protocol, Diabetes education/management following
-Received 1u PRBC yesterday for h/h of 7.5/22; h/h 8.0/23.9 today
-Received multiple blood products postop, cont. diuresis (not responding well to Lasix, will try Bumex), wt is up 15 lbs from preop
-Maintain bang catheter for accurate I/O's. 24hrs u/o 1465 mL
-Consider D/C of chest tubes: 2meds 135/270; A/V wires d/c'd yesterday 03/05, has PPM from 11/18/24 d/t HB
-Holding BB while on Dobutamine, Losartan resumed for BP control
-No ASA (NSAIDs)d/t allergy
-Cont. current meds (Plavix, Amiodarone, Lipitor, Losartan, Bumex)
-Encourage use of IS
-OOB into chair/Ambulate
-A-line positional and not reliable
Assessment / Plan
-
Impression:
- Bicuspid aortic valve with - s/p AVR #23mm Freestyle root replacement w/reimplantation of coronaries, CABG x 1 SVG-RCA� by Dr. Lyles on 03/04/25, pod #2
- s/p [employer] pacer 11/18/24
- hx syncope
- hx of a-fib in 2016
- CAD/ 70% distal LAD- ASA contraindicated d/t allergy. Will resume Plavix when tolerating solids
- Allergy to NSAIDs with hives/swelling
- HTN/HLD
- DM II (HgA1c 6.0)
- Anxiety/depression
- Asthma
- Insomnia
- Benign neoplasm of colon
- Osteoarthritis
- Hypothyroidism
- PVD
- L hip ORIF
- Spigelian hernia repair x5
- Acute postop blood loss anemia/ coagulopathy - s/p 4 pRBCs, 2 unit platelets, 2 FFP, DDAVP
- Acute postop pulmonary insufficiency/atelectasis
- Acute postop hypovolemia with subsequent hypervolemia
Discussed patient care with: Cardiology, Nursing, Respiratory Therapy, Pharmacy and Care Team
Subjective
-
Date of Service: March 06, 2025
Pt c/o mild incisional pain, otherwise feels well
Objective Data
-
PT 16.1 Sec (11.4-14.6) H 03/04/25 20:13
INR 1.24 03/04/25 20:13
APTT 29.3 Sec (23.4-35.0) 03/04/25 20:13
Vital Signs
Vital Signs
Temp Pulse Resp BP Pulse Ox
99.5 F 110 27 115/53 90
03/06/25 03:00 03/06/25 03:00 03/06/25 03:00 03/06/25 03:00 03/06/25 03:00
CT Intake/Output/Weight
03/05/25 03/05/25 03/06/25
06:59 18:59 06:59
Intake Total 1274.6 / 2920.55 2091.2 / 2548.1 456.9 / 2548.1
Output Total 675 / 1690 1330 / 1630 300 / 1630
Balance 599.6 / 1230.55 761.2 / 918.1 156.9 / 918.1
SaO2: 92 (4L)
Physical Exam
-
General: Awake, Oriented and AOx3
Cardiovascular: Regular rate & rhythm, No Murmurs, No Rub and No Gallop
Respiratory: Decreased Breath Sounds (at bases, otherwise clear)
Sternum: Stable
Incision: Clean, Dry, Intact and Dressing Intact
Extremities: Other (+trace edema)
Data Reviewed
-
Lab Results: Results Reviewed
Medications: Active Meds Reviewed
Chest X-Ray: Report Reviewed and Image Reviewed
ECG: Report Reviewed and Image Reviewed
[2025-03-06 04:17] LABS: Glucose - Point of Care 89 mg/dl (70-99)
--- NOTE | 2025-03-06 04:21 | PTCARENOTE ---
Patient sleeping between care. Additional oxycodone 5 mg for pain. BP 143/59 at 0205 - CVPA aware, continue to monitor. Surekha at that time 106/46. UOP low. Intermittent cough. Call craft within reach, assessment of needs ongoing.
[2025-03-06 05:02] LABS: Hematocrit 23.9 % (37.0-47.0); Hemoglobin 8.0 g/dL (12.0-16.0); Mean Corp Hgb Conc. 33.5 g/dL (33.0-37.0); Mean Corpuscular Volume 89.5 fL (81.0-99.0); Platelet Count 138 10^3/uL (130-400); Red Cell Dist. Width 14.6 % (11.5-14.5)
[2025-03-06 05:03] LABS: Blood Urea Nitrogen 18 mg/dl (7-17); Calcium 8.0 mg/dl (8.4-10.2); Carbon Dioxide 26 mmol/L (22-30); Chloride 108 mmol/L (98-107); Estimated Creatinine Clearance 60 ml/min; Glucose 88 mg/dl (70-99); Magnesium 2.0 mg/dl (1.6-2.3); Potassium 4.5 mmol/L (3.5-5.1); Sodium 136 mmol/L (135-145); eGFR > 60.00
[2025-03-06] MEDS: SYNTHROID 88 MCG PO (05:25)
[2025-03-06] MEDS: CALCIUM GLUCONATE 100 IV (05:36)
[2025-03-06 06:02] LABS: Glucose - Point of Care 107 mg/dl (70-99)
[2025-03-06] MEDS: TYLENOL 975 MG PO ×3 (06:04→20:07)
[2025-03-06] MEDS: DOBUTREX 500 MG 250 IV (07:34)
[2025-03-06 08:00] LABS: Glucose - Point of Care 109 mg/dl (70-99)
[2025-03-06] MEDS: PLAVIX 75 MG PO (08:00)
[2025-03-06] MEDS: BUMEX 2 MG IV ×2 (08:00→17:10)
[2025-03-06] MEDS: NEURONTIN 100 MG PO ×3 (08:00→22:05)
[2025-03-06] MEDS: PACERONE 200 MG PO ×3 (08:00→22:04)
[2025-03-06] MEDS: PROTONIX 40 MG PO (08:00)
[2025-03-06] MEDS: SENOKOT 8.6 MG PO ×2 (08:00→20:08)
[2025-03-06] MEDS: LIPITOR 20 MG PO (08:00)
[2025-03-06] MEDS: MAGNESIUM OXIDE 400 MG PO ×2 (08:00→20:06)
[2025-03-06] MEDS: KCL 20 MEQ PO (08:01)
[2025-03-06] MEDS: BACTROBAN 2% OINTMENT 1 APPLIC NASAL ×2 (08:01→20:10)
[2025-03-06] MEDS: LIDOCAINE 4% PATCH 1 PATCH TOPICAL (08:02)
--- NOTE | 2025-03-06 08:11 | PTCARENOTE ---
Received pt from maintenance technician 3rd shift RN; pt AAOX3 and resting comfortably in chair; Sinus Tachycardia on monitor and VSS; RIJ Mervin, Firth floated to 39, Left A-line and PIV x1 all patent; all lines leveled and zeroed; Dobutamine and Insulin infusing see
flow sheet for details; Lungs diminished with fine crackles in bases; IS to 1000; hypoactive bowel sounds; Rubi Catheter draining yellow urine; palpable pulses throughout; +1 generalized edema; all surgical sites C/D/I; see nursing documentation
for further details.
CI 2.86
CO 5.49
SVR 699
--- NOTE | 2025-03-06 08:22 | W.PN.INTV ---
Today's Communication / Plan
Recommendations
Continue dobutamine and wean off as tolerated while trending MVO2 with goal >65
Goal BG 110�140 ---> wean off insulin gtt per protocol
Pain control
Up OOB as tolerated
Removal of chest tubes per CT surgery
Parking Control Officer services will continue to follow along while patient remains CVICU status
Assessment
-
Assessment: 74-year-old female with a past medical history of severe aortic valve stenosis, single-vessel CAD, history of A-fib, DM type II, hypertension, hyperlipidemia, anxiety/depression, asthma, insomnia, history of syncope, 2:1 AV block s/p
PPM, PVD, osteoporosis and hypothyroidism who presents for elective surgical aortic valve replacement. Patient known to the cardiothoracic surgery service with last visit on 02/12/[address] Lyles. Patient has known severe aortic valve stenosis.
TAVR was initially planned however there were concerning measurements from her CT hence it was not arranged. She was referred for surgical aortic valve replacement with possible root enlargement. Multiple options were discussed and the patient
agreed for surgical intervention. On 03/04/2025, she underwent SAVR with #23 mm freestyle root replacement with reimplantation of coronaries and CABG x 1. Patient tolerated the procedure well and transferred to the CVICU for further care.
Parking Control Officer services consulted for additional management/recommendations.
Chronic conditions [employer]ER: Bicuspid aortic valve, severe aortic stenosis, history of A-fib, DM type II, hypertension, hyperlipidemia, asthma, anxiety/depression, insomnia, lichen sclerosis, benign neoplasm of colon, history of syncope, hypothyroidism,
CAD, 2:1 AV block s/p PPM (11/18/2024), PVD, osteoporosis, left hip fracture, leukocytosis
Impression:
#Bicuspid aortic valve with aortic stenosis s/p AVR with #23 mm freestyle root replacement with reimplantation of coronaries + CABG x 1 (SVG�RCA) � POD #2
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
#Acute surgical blood loss anemia
#Acute postoperative coagulopathy
#Prediabetes with hyperglycemia (HbA1C: 6 on 01/26/2025)
#CAD
#DM type II
#Hypothyroidism
#Bronchial wall thickening seen on CT TAVR from 12/04/2024
Plan:
Patient successfully extubated on 03/04/2025, and is currently breathing comfortably on 4 L/min saturating 95%
Continue weaning down supplemental O2 flow rate while maintaining SpO2 >90-94%
prn nebulized bronchodilators - not currently bronchospastic
Encourage IS use q1hr while awake
Pulmonary artery catheter parameters will be followed --> weaning down dobutamine to off while trending MVO2 + MAP
Pressors/antihypertensive/inotropes/diuretics will be provided as needed
Maintain MAP>65
Replete electrolytes with K>4, Mg>2
Monitor chest tube output (meds x2)
Monitor hemoglobin
Monitor platelet count and coags
Transfuse blood products as needed to maintain Hb>7g/dL, plt>50k (given post-operative status)
CT surgery managing chest tubes
Monitor blood sugar to maintain euglycemia with goal BG 110-140
Insulin drip per protocol
Aspiration precautions
DVT prophylaxis
Early nutrition
Early mobilization
Critical care statement: A total of 37 minutes of critical care time was provided for this patient today. This includes management of ventilator, spontaneous breathing trial, arterial blood gases, pressors, of unstable vital signs, evaluation of the
patient at bedside, reviewing the patient's pertinent medical records including radiographs, microbiology, laboratory evaluations, and discussion with primary team and critical care nursing.
Subjective Dataa
Subjective Data
Date of Service:
Date of Service: March 06, 2025
Chief Complaint: Parking Control Officer Follow Up
Subjective:
Patient seen and evaluated today at bedside. Resting in chair in no acute distress. On insulin at 0.8 units/h and dobutamine at 2 mcg/kg/min. Mediastinal chest tubes x [address]. Heart rate 109, BP via A-line 123/51, PAP 36/20, and CO/CI:
5.04/2.63, respectively. She says she feels okay, denies chest pain, TRONCOSO, SOB, nausea, fevers or chills.
Review of Systems
General: Other (Negative unless mentioned above)
Objective Data
Data Reviewed
Vital Signs / I&O / Oxygen:
Vital Signs
Temp Pulse Resp BP Pulse Ox
99.8 F 121 16 115/65 93
03/06/25 09:00 03/06/25 09:15 03/06/25 09:15 03/06/25 09:00 03/06/25 09:15
Intake and Output
03/05/25 03/06/25 03/07/25
06:59 06:59 06:59
Intake Total 2881.65 / 2920.55 2821.2 / 2853.2 156 / 156
Output Total 1660 / 1690 1735 / 1760 180 / 180
Balance 1221.65 / 1230.55 1086.2 / 1093.2 -24 / -24
SaO2 [CPAP/PSV] 99
SaO2 [SIMV] 100
SaO2 93
Nasal Cannula flow liters per 4
minute
Physical Exam
General: Respiratory Distress (negative), Comfortable and Chills (negative)
HEENT: Normocephalic and Anicteric
Cardiovascular: S1-S2 and Peripheral Edema (+1 TAE bilaterally)
Respiratory: Wheeze (negative), Crackles (negative), Rhonchi (negative), Non-Labored Respirations and Chest Tube (Mediastinal chest tubes x 2)
GI: Soft, Distended, Non Tender and Normal Bowel Sounds
Neurology: Awake, Alert (Drowsy at times), Oriented and Tremors (negative)
Skin: Warm, Dry, Cyanosis (negative) and Jaundice (negative)
Labs/Micro/Reports
Lab Data
03/06/25 04:16
03/06/25 04:16
[2025-03-06] MEDS: NOVOLOG FLEXPEN 4 UNITS SC ×3 (09:08→16:40)
[2025-03-06] MEDS: COZAAR 50 MG PO (09:09)
[2025-03-06 10:00] LABS: Glucose - Point of Care 185 mg/dl (70-99)
[2025-03-06 11:02] LABS: Glucose - Point of Care 120 mg/dl (70-99)
[2025-03-06] MEDS: NSS 500 IV (11:10)
--- NOTE | 2025-03-06 11:57 | PTCARENOTE ---
1 unit PRBCs infusing per CRPA order.
--- NOTE | 2025-03-06 12:16 | PTCARENOTE ---
Assessment unchanged; Sinus Tachycardia and VSS; pt resting comfortably in chair with family at bedside; 1 unit PRBCs infusing without difficulties.
[2025-03-06 12:57] LABS: Glucose - Point of Care 95 mg/dl (70-99)
[2025-03-06 14:55] LABS: Glucose - Point of Care 236 mg/dl (70-99)
[2025-03-06] MEDS: FERRLECIT 110 MG IV (15:05)
--- NOTE | 2025-03-06 18:46 | PTCARENOTE ---
min assist back to bed, remains ST on monitor HR 110. 2Lnc in bed. 92%. 10 nitro started for sys bp 149. will continue to monitor.
--- NOTE | 2025-03-06 20:00 | PTCARENOTE ---
Assumed care of patient at 1900. Patient found resting in bed at time of assessment. Patient is AOx4, follows commands appropriately, moves all extremities. Lung sounds are diminished in the bases, saO2 92% on 2L, patient has CTx2: 2xmeds draining
serosang to one atrium. Patient has audible heart sounds, they are ST with BBB on the monitor, pulses are normal palpable and there is +1 generalized anasarca. Patient has active BS throughout all four quadrants and has bang draining clear yellow
urine. There is a sternal incision approx with surg adhesive FIBRE OPTIC CABLE SPLICER, R groin puncture approx with surg adhesive FIBRE OPTIC CABLE SPLICER and RLE incision approx with surg adhesive CYNTHIA. There is a R IJ cordis with swan floated to 39cm, L radial ander, and L AC 18G PIV.
Patient is on dobut@2, nitro@5 and has Cordis/VIP KVO. Patient given Rin 5 for pain. Call craft within reach.
[2025-03-06 20:07] LABS: Glucose - Point of Care 244 mg/dl (70-99)
[2025-03-06] MEDS: GLUCOPHAGE 500 MG PO (20:07)
[2025-03-06] MEDS: REMOVE LIDOCAINE PATCH REMOVE (20:09)
[2025-03-06] MEDS: BUMEX 1 MG IV (20:09)
[2025-03-07] VITALS (36 sets, daily range): BP systolic 72–141; BP diastolic 45–89; BMI 32.5
--- NOTE | 2025-03-07 00:35 | PTCARENOTE ---
Addendum entered by Lorenzo Cade RN 03/07/25 06:31:
Nitro gtt off following bumex administration d/t hypotension
Original Note:
Patient reassessed. Now in SR with BBB on the monitor. Given additional dose of Bumex at ~[address] PA[address] Good UOP following administration. No c/o pain. Call craft within reach.
[2025-03-07 03:15] LABS: Glucose - Point of Care 165 mg/dl (70-99)
[2025-03-07 03:29] LABS: Hematocrit 26.9 % (37.0-47.0); Hemoglobin 9.0 g/dL (12.0-16.0); Mean Corp Hgb Conc. 33.5 g/dL (33.0-37.0); Mean Corpuscular Volume 88.8 fL (81.0-99.0); Platelet Count 138 10^3/uL (130-400); Red Cell Dist. Width 14.9 % (11.5-14.5)
[2025-03-07 03:39] LABS: Blood Urea Nitrogen 23 mg/dl (7-17); Calcium 8.5 mg/dl (8.4-10.2); Carbon Dioxide 26 mmol/L (22-30); Chloride 105 mmol/L (98-107); Estimated Creatinine Clearance 67 ml/min; Glucose 162 mg/dl (70-99); Magnesium 1.8 mg/dl (1.6-2.3); Potassium 4.9 mmol/L (3.5-5.1); Sodium 133 mmol/L (135-145); eGFR > 60.00
--- NOTE | 2025-03-07 04:11 | W.PN.CT ---
Addendum entered and electronically signed by Tab Beltran MD 03/07/25 09:30:
I saw and examined the patient.
The PA's note was reviewed and I agree with the note.
Comment:
POD#3
No major overnight events. This AM pt w/ AF in 160-170s - pt broke w/ vagal post 1min, recurrent x 1, broke spontaneously again, current in 90s sinus. Dobutamine D/C'd (CI: 2.29 prior).
Afebrile. 90 sinus. 132/76. 98% 2L. GTTS: none. CT: M: .
- Amiodarone bolus/gtt
- Continue to monitor closely off dobutamine, trend CI; remove SGC later today if CI remains > 2.0
- D/C mediastinal CTs
- D/C arterial line, not working; follow NIBP
- Maintain bang today - additional diuresis (Bumex 2mg BID)
- OOB/IS
Original Note:
Today's Communication / Plan
-
Plan:
-No major issues overnight. Hemodynamically and neurologically intact
-Dobutamine weaned to 2 yesterday, d/c'd insulin gtt per protocol
-Wean Dobutamine today, CI 2.29, MVO2 55.3%
-Received 1u PRBC yesterday for h/h 8.0/23.9 yesterday, h/h 9.0/26.9 today
-Received multiple blood products postop, cont. diuresis with Bumex (did not responding well with Lasix), wt was up 18 lbs from preop
-Maintain bang catheter for accurate I/O's. 24hrs u/o 1825 mL. Will d/c once off dobutamine gtt
-Consider D/C of chest tubes: 2meds ; A/V wires d/c'd 03/05, has PPM from 11/18/24 d/t HB
-Holding BB while on Dobutamine, Losartan resumed for BP control
-No ASA (NSAIDs)d/t allergy
-Cont. current meds (Plavix, Amiodarone, Lipitor, Losartan, Bumex)
-Encourage use of IS
-OOB into chair/Ambulate
-A-line positional and not reliable, will d/c a-line and swan when off dobutamine gtt
Assessment / Plan
-
Impression:
- Bicuspid aortic valve with - s/p AVR #23mm Freestyle root replacement w/reimplantation of coronaries, CABG x 1 SVG-RCA� by Dr. Lyles on 03/04/25, pod #3
- s/p [employer] pacer 11/18/24
- hx syncope
- hx of a-fib in 2016
- CAD/ 70% distal LAD- ASA contraindicated d/t allergy. Will resume Plavix when tolerating solids
- Allergy to NSAIDs with hives/swelling
- HTN/HLD
- DM II (HgA1c 6.0)
- Anxiety/depression
- Asthma
- Insomnia
- Benign neoplasm of colon
- Osteoarthritis
- Hypothyroidism
- PVD
- L hip ORIF
- Spigelian hernia repair x5
- Acute postop blood loss anemia/ coagulopathy - s/p 5 pRBCs, 2 unit platelets, 2 FFP, DDAVP
- Acute postop pulmonary insufficiency/atelectasis
- Acute postop hypovolemia with subsequent hypervolemia
- Acute postop hyponatremia
Discussed patient care with: Cardiology, Nursing, Respiratory Therapy, Pharmacy and Care Team
Subjective
-
Date of Service: March 07, 2025
c/o mild incisional pain, otherwise feels well
Objective Data
-
Lab Results
03/07/25 03:16
03/07/25 03:16
PT 16.1 Sec (11.4-14.6) H 03/04/25 20:13
INR 1.24 03/04/25 20:13
APTT 29.3 Sec (23.4-35.0) 03/04/25 20:13
Vital Signs
Vital Signs
Temp Pulse Resp BP Pulse Ox
98.1 F 102 18 134/59 96
03/07/25 04:00 03/07/25 04:00 03/07/25 04:00 03/07/25 04:00 03/07/25 04:00
CT Intake/Output/Weight
03/06/25 03/06/25 03/07/25
06:59 18:59 06:59
Intake Total 730.0 / 2853.2 1327.9 / 3669.5 2341.6 / 3669.5
Output Total 405 / 1760 795 / 1805 1010 / 1805
Balance 325.0 / 1093.2 532.9 / 1864.5 1331.6 / 1864.5
SaO2: 96 (2L)
Physical Exam
-
General: Awake, Oriented and AOx3
Cardiovascular: Regular rate & rhythm, No Murmurs, No Rub and No Gallop
Respiratory: Decreased Breath Sounds (at bases, otherwise clear)
Sternum: Stable
Incision: Clean, Dry, Intact and Dressing Intact
Extremities: Other (+trace edema)
Data Reviewed
-
Lab Results: Results Reviewed
Medications: Active Meds Reviewed
Chest X-Ray: Report Reviewed and Image Reviewed
ECG: Report Reviewed and Image Reviewed
[2025-03-07] MEDS: ROXICODONE 5 MG PO ×2 (04:42→09:50)
--- NOTE | 2025-03-07 05:30 | PTCARENOTE ---
Patient reassessed. VSS. Significant discrepancy between ander pressures and cuff pressures noted despite zeroing and repositioning. CT PA aware. AM hygiene care provided. AM labs obtained. OOB to chair without incident. Rin 5 for pain. Call craft
within reach.
[2025-03-07] MEDS: SYNTHROID 88 MCG PO (06:11)
[2025-03-07] MEDS: TYLENOL 975 MG PO ×2 (06:11→20:03)
[2025-03-07] MEDS: DOBUTREX 500 MG 250 IV (06:21)
--- NOTE | 2025-03-07 08:00 | PTCARENOTE ---
resumed care of patient from previous RN. oob in chair at time of assessment. drowsy but oriented. hard of hearing. NSR/ST. +2 pitting edema pulses palpable. Lung sounds are diminished in the bases. 94% on RA. IS 1000. CTx2 2xmeds min outout. +bs.
poor appetite. bang draining clear yellow urine. All surgical sites c/d/i. R IJ cordis with swan floated to 39cm, L radial ander, and L AC 18G PIV. Patient is on dobut@2. no pain reported at this time. will continue to monitor.
[2025-03-07 08:07] LABS: Glucose - Point of Care 200 mg/dl (70-99)
[2025-03-07] MEDS: NOVOLOG FLEXPEN 4 UNITS SC (08:10)
[2025-03-07] MEDS: BACTROBAN 2% OINTMENT 1 APPLIC NASAL ×2 (08:11→19:59)
[2025-03-07] MEDS: BUMEX 2 MG IV ×2 (08:25→19:59)
[2025-03-07] MEDS: PROTONIX 40 MG PO (08:26)
[2025-03-07] MEDS: PLAVIX 75 MG PO (08:26)
[2025-03-07] MEDS: COZAAR 50 MG PO (08:26)
[2025-03-07] MEDS: GLUCOPHAGE 500 MG PO ×2 (08:27→16:41)
[2025-03-07] MEDS: MAGNESIUM OXIDE 400 MG PO ×2 (08:27→19:56)
[2025-03-07] MEDS: PACERONE 200 MG PO ×2 (08:27→16:41)
[2025-03-07] MEDS: LIDOCAINE 4% PATCH TOPICAL (08:27)
[2025-03-07] MEDS: NEURONTIN 100 MG PO ×3 (08:27→21:23)
[2025-03-07] MEDS: NSS IV (08:27)
[2025-03-07] MEDS: SENOKOT 8.6 MG PO ×2 (08:27→19:56)
[2025-03-07] MEDS: LIPITOR 20 MG PO (08:27)
--- NOTE | 2025-03-07 08:30 | W.PN.INTV ---
Today's Communication / Plan
Recommendations
Dobutamine to be weaned off this AM
Goal BG 110�140
Pain control
Up OOB as tolerated
Removal of chest tubes per CT surgery
[facility] service will continue to follow along while patient remains CVICU status. Once transferred to CVICU�telemetry status, then we will sign off at that time.
Assessment
-
Assessment: 74-year-old female with a past medical history of severe aortic valve stenosis, single-vessel CAD, history of A-fib, DM type II, hypertension, hyperlipidemia, anxiety/depression, asthma, insomnia, history of syncope, 2:1 AV block s/p
PPM, PVD, osteoporosis and hypothyroidism who presents for elective surgical aortic valve replacement. Patient known to the cardiothoracic surgery service with last visit on 02/12/[address] Lyles. Patient has known severe aortic valve stenosis.
TAVR was initially planned however there were concerning measurements from her CT hence it was not arranged. She was referred for surgical aortic valve replacement with possible root enlargement. Multiple options were discussed and the patient
agreed for surgical intervention. On 03/04/2025, she underwent SAVR with #23 mm freestyle root replacement with reimplantation of coronaries and CABG x 1. Patient tolerated the procedure well and transferred to the CVICU for further care.
[facility] services consulted for additional management/recommendations.
Chronic conditions INTERNAL CONTROLS SPECIALIST: Bicuspid aortic valve, severe aortic stenosis, history of A-fib, DM type II, hypertension, hyperlipidemia, asthma, anxiety/depression, insomnia, lichen sclerosis, benign neoplasm of colon, history of syncope, hypothyroidism,
CAD, 2:1 AV block s/p PPM (11/18/2024), PVD, osteoporosis, left hip fracture, leukocytosis
Impression:
#Bicuspid aortic valve with aortic stenosis s/p AVR with #23 mm freestyle root replacement with reimplantation of coronaries + CABG x 1 (SVG�RCA) � POD #3
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
#Acute surgical blood loss anemia
#Acute postoperative coagulopathy
#Prediabetes with hyperglycemia (HbA1C: 6 on 01/26/2025)
#CAD
#DM type II
#Hypothyroidism
#Bronchial wall thickening seen on CT TAVR from 12/04/2024
Plan:
Patient successfully extubated on 03/04/2025, and is currently breathing comfortably on room air, saturating 92-93%
Keep goal SpO2 >90-94%
prn nebulized bronchodilators - not currently bronchospastic
Encourage IS use q1hr while awake
Pulmonary artery catheter parameters will be followed --> weaning off dobutamine today
Pressors/antihypertensive/inotropes/diuretics will be provided as needed
Maintain MAP>65
Replete electrolytes with K>4, Mg>2
Monitor chest tube output (meds x2)
Monitor hemoglobin
Monitor platelet count and coags
Transfuse blood products as needed to maintain Hb>7g/dL, plt>50k (given post-operative status)
CT surgery managing chest tubes - meds x2 to be removed today
Monitor blood sugar to maintain euglycemia with goal BG 110-140
Insulin drip now off; recommend ISS to maintain BG at goal as above
Aspiration precautions
DVT prophylaxis
Early nutrition
Early mobilization
[facility] service will continue to follow along while patient remains CVICU status. Once transferred to CVICU�telemetry status, then we will sign off at that time.
Critical care statement: A total of 39 minutes of critical care time was provided for this patient today. This includes management of ventilator, spontaneous breathing trial, arterial blood gases, pressors, of unstable vital signs, evaluation of the
patient at bedside, reviewing the patient's pertinent medical records including radiographs, microbiology, laboratory evaluations, and discussion with primary team and critical care nursing.
Subjective Dataa
Subjective Data
Date of Service:
Date of Service: March 07, 2025
Chief Complaint: [employer] [facility] Follow Up
Subjective:
Patient seen and evaluated today at bedside. Dobutamine being weaned off. Had rapid A-fib earlier today and amiodarone was started however this lowered blood pressure. Amiodarone dose was turned off. Currently on room air, saturating 93%,
sitting in chair no acute distress. PAP 34/19 and CO/CI 3.12/1.63.
Review of Systems
General: Other (Negative unless mentioned above)
Objective Data
Data Reviewed
Vital Signs / I&O / Oxygen:
Vital Signs
Temp Pulse Resp BP Pulse Ox
99.0 F 99 18 105/57 91
03/07/25 08:00 03/07/25 09:30 03/07/25 09:30 03/07/25 09:00 03/07/25 09:30
Intake and Output
03/06/25 03/07/25 03/08/25
06:59 06:59 06:59
Intake Total 2821.2 / 2853.2 3719.5 / 3774.5 335 / 335
Output Total 1735 / 1760 1954 / 2009 145 / 145
Balance 1086.2 / 1093.2 1764.5 / 1764.5 190 / 190
SaO2 [CPAP/PSV] 99
SaO2 [SIMV] 100
SaO2 91
Nasal Cannula flow liters per 2
minute
Physical Exam
General: Respiratory Distress (negative), Comfortable and Chills (negative)
HEENT: Normocephalic and Anicteric
Cardiovascular: S1-S2 and Peripheral Edema (+1 TAE bilaterally)
Respiratory: Wheeze (negative), Crackles (negative), Rhonchi (negative), Non-Labored Respirations and Chest Tube (Mediastinal chest tubes x 2)
GI: Soft, Distended, Non Tender and Normal Bowel Sounds
Neurology: Awake, Alert (Drowsy at times), Oriented and Tremors (negative)
Skin: Warm, Dry, Cyanosis (negative) and Jaundice (negative)
Labs/Micro/Reports
Lab Data
03/07/25 03:16
03/07/25 03:16
[2025-03-07] MEDS: CORDARONE 103 MG IV (11:27)
[2025-03-07] MEDS: CORDARONE 518 MG IV (11:34)
--- NOTE | 2025-03-07 12:00 | PTCARENOTE ---
RAFIB HR 190. broke with valsalva maneuver. but went back in. Amio bolus and gtt initiated.
--- NOTE | 2025-03-07 12:20 | W.PN.CARDCBS ---
Today's Communication / Plan
-
Supportive postop care
Monitor for recurrent A-fib
Impression / Plan
-
Primary Educational Advisor: Dr. Fischer
Assessment:
s/p AVR #23mm Freestyle root replacement w/reimplantation of coronaries, CABG x 1 SVG-RCA 03/04/25
Severe aortic stenosis
CAD of mid to distal LAD by cath 10/2024
History of syncope
Bifascicular block
2-1 and 3-1 AV block at time of cath s/p SJM PPM 11/18/24
PAF
DM2
HTN
HLD
Hypothyroidism
ECHO 10/26/24: Preserved LV function, severe concentric LVH, mean aortic gradient of 51 mmHg with mild to moderate AR and valve area 0.6 cm�
Plan:
s/p AVR #23mm Freestyle root replacement w/reimplantation of coronaries, CABG x 1 SVG-RCA� by Dr. Lyles on 03/04/25
-Postop A-fib this morning currently in sinus rhythm�amiodarone bolus drip started by CT surgery
-Off dobutamine
-Plan to DC swan/ander once stable off dobutamine
-Chest tube management per CT surgery
-Diurese
-[employer] pacemaker was checked postop
-I-S encouraged. Increase activity once delined
Progress Note - Educational Advisor
Subjective
Date of Service: March 07, 2025
Seen and examined. Out of bed to chair feeling well. Currently no complaint
Objective
Labs:
03/07/25 03:16
03/07/25 03:16
Labs
Hgb 9.0 g/dL (12.0-16.0) L 03/07/25 03:16
Hct 26.9 % (37.0-47.0) L 03/07/25 03:16
Plt Count 138 10^3/uL (130-400) 03/07/25 03:16
PT 16.1 Sec (11.4-14.6) H 03/04/25 20:13
INR 1.24 03/04/25 20:13
APTT 29.3 Sec (23.4-35.0) 03/04/25 20:13
Sodium 133 mmol/L (135-145) L 03/07/25 03:16
Potassium 4.9 mmol/L (3.5-5.1) 03/07/25 03:16
BUN 23 mg/dl (7-17) H 03/07/25 03:16
Creatinine 0.8 mg/dL (0.6-1.0) 03/07/25 03:16
Glucose 162 mg/dl (70-99) H 03/07/25 03:16
Vital Signs and I&O:
Vital Signs
Temp Pulse Resp BP Pulse Ox
99.3 F 85 18 107/66 94
03/07/25 11:00 03/07/25 11:00 03/07/25 11:00 03/07/25 11:00 03/07/25 11:00
Vital Signs
Temp Pulse Resp BP Pulse Ox
99.3 F 85 18 107/66 94
03/07/25 11:00 03/07/25 11:00 03/07/25 11:00 03/07/25 11:00 03/07/25 11:00
Intake & Output
03/05/25 03/06/25 03/07/25 03/08/25
06:59 06:59 06:59 06:59
Intake Total 2881.65 / 2920.55 2821.2 / 2853.2 3719.5 / 3774.5 355 / 355
Output Total 1660 / 1690 1735 / 1760 1954 185 / 185
Balance 1221.65 / 1230.55 1086.2 / 1093.2 1764.5 / 1764.5 170 / 170
Physical Exam
Physical Exam
GEN: NAD oob to chair
HEENT: mmm
LUNGS: Decreased bilaterally, no wheezes/rales. Positive chest tubes.Positive Cordis/Gays
CV: Reg and tachy, S1/S2, no murmur
ABD: soft, ND +BS
EXT: 1+ edema of bilateral lower extremity. Left radial A-line
:bang
[2025-03-07 12:59] LABS: Glucose - Point of Care 250 mg/dl (70-99)
[2025-03-07] MEDS: FERRLECIT 110 MG IV (13:02)
[2025-03-07] MEDS: TYLENOL PO (15:10)
--- NOTE | 2025-03-07 16:00 | PTCARENOTE ---
albumin given as ordered as well as additional dose of bumex without much response. see I&O for output totals.
[2025-03-07] MEDS: FLEXBUMIN 100 IV (16:40)
[2025-03-07] MEDS: BUMEX 1 MG IV (16:53)
[2025-03-07 17:16] LABS: Glucose - Point of Care 208 mg/dl (70-99)
[2025-03-07] MEDS: REMOVE LIDOCAINE PATCH REMOVE (19:59)
[2025-03-07] MEDS: CALCIUM GLUCONATE 130 MG IV (20:03)
--- NOTE | 2025-03-07 21:00 | PTCARENOTE ---
Assumed care of pt from dayshift RN. Walking rounds completed. Pt is SR on the tele monitor. HR 70s. Pt w/ duel chamber pacemaker. BP stable. PAPs 30s/teens. CVP high (teens to 30s) - PA aware, not sure if numbers are accurate w/ the waveform. CI
1.77. CTPA aware. B/L DP pulses weak on palpation. +2 B/L upper and lower extremity edema present. Pt on 2 L NC. POX 94%. B/L lung sounds diminished in the base. Deep breathing and IS encouraged. Abdomen round, nontender. +BSx4. Pt reports decreased
appetite. Rubi catheter intact and draining yellow urine. All surgical site stable. Right IJ cordis w/ swan intact. All lines leveled, zeroed, and flushed. Amiodarone infusing as ordered. Calcium gluconate administered as ordered. Pt assisted from
the chair to the bed. See worklist for full nursing assessment and interventions. Call craft within reach.
[2025-03-07 23:13] LABS: Glucose - Point of Care 169 mg/dl (70-99)
[2025-03-08] VITALS (31 sets, daily range): BP systolic 95–159; BP diastolic 47–90; PULSE 82; O2SAT 94; BMI 32.6
--- NOTE | 2025-03-08 00:11 | PTCARENOTE ---
Pt reassessed. No acute changes in assessment. Pt SR on the tele monitor. HR 70s. Occasional pacer spikes. PAPs 30s/teens. CVP 20-30s - PA aware. CI improved - 1.93. Pt on 2 L NC. POX 94%. Rubi catheter intact and draining yellow urine. UO
appropriate. All surgical site stable. All lines leveled, zeroed, and flushed. Pt repositioned in bed. Amio infusing as ordered. Call craft within reach.
[2025-03-08 04:08] LABS: Hematocrit 27.9 % (37.0-47.0); Hemoglobin 9.3 g/dL (12.0-16.0); Mean Corp Hgb Conc. 33.3 g/dL (33.0-37.0); Mean Corpuscular Volume 92.4 fL (81.0-99.0); Platelet Count 164 10^3/uL (130-400); Red Cell Dist. Width 14.8 % (11.5-14.5)
--- NOTE | 2025-03-08 04:09 | W.PN.CT ---
Today's Communication / Plan
-
Plan:
-No major issues overnight. Hemodynamically and neurologically intact
-Dobutamine was at 2 mcg/kg/min yesterday morning, but was discontinued following bouts of a-fib
-Started on Amiodarone gtt for afib with RVR x 2, brief and lasting approximately 30 min. PO Amiodarone currently on hold
-Last CI off dobutamine is 1.96, MVO2 51.7%
-Will resume BB now that off Dobutamine and given PAF
-Received 1u PRBC 03/06, h/h 9.3/27.9 today
-Received multiple blood products postop, cont. diuresis with Bumex (did not respond well with Lasix), wt was up 19 lbs from preop yesterday, check wt today
-D/C bang catheter. 24hr u/o 1585 mL
-Chest tubes d/c'd yesterday without incident
-D/C swan, maintain cordis while on Amiodarone gtt
-No ASA (NSAIDs)d/t allergy
-Cont. current meds (Plavix, Amiodarone, Lipitor, Losartan, Bumex)
-Encourage use of IS
-OOB into chair/Ambulate
-Will consult PT/OT
Assessment / Plan
-
Impression:
- Bicuspid aortic valve with - s/p AVR #23mm Freestyle root replacement w/reimplantation of coronaries, CABG x 1 SVG-RCA� by Dr. Lyles on 03/04/25, pod #4
- s/p [employer] pacer 11/18/24
- hx syncope
- hx of a-fib in 2016
- CAD/ 70% distal LAD- ASA contraindicated d/t allergy. Will resume Plavix when tolerating solids
- Allergy to NSAIDs with hives/swelling
- HTN/HLD
- DM II (HgA1c 6.0)
- Anxiety/depression
- Asthma
- Insomnia
- Benign neoplasm of colon
- Osteoarthritis
- Hypothyroidism
- PVD
- L hip ORIF
- Spigelian hernia repair x5
- Acute postop blood loss anemia/ coagulopathy - s/p 5 pRBCs, 2 unit platelets, 2 FFP, DDAVP
- Acute postop pulmonary insufficiency/atelectasis
- Acute postop hypovolemia with subsequent hypervolemia
- Acute postop hyponatremia
- Acute postop PAF with RVR
Discussed patient care with: Cardiology, Nursing, Respiratory Therapy, Pharmacy and Care Team
Subjective
-
Date of Service: March 08, 2025
Pt c/o mild incisional pain, otherwise feels well
Objective Data
-
Lab Results
03/08/25 03:56
PT 16.1 Sec (11.4-14.6) H 03/04/25 20:13
INR 1.24 03/04/25 20:13
APTT 29.3 Sec (23.4-35.0) 03/04/25 20:13
Vital Signs
Vital Signs
Temp Pulse Resp BP Pulse Ox
99.2 F 77 22 143/72 94
03/08/25 04:00 03/08/25 04:00 03/08/25 04:00 03/08/25 04:00 03/08/25 04:00
CT Intake/Output/Weight
03/07/25 03/07/25 03/08/25
06:59 18:59 06:59
Intake Total 2391.6 / 3774.5 825 / 1281.9 456.9 / 1281.9
Output Total 1159 310 / 1475 1165 / 1475
Balance 1231.6 / 1764.5 515 / -193.1 -708.1 / -193.1
SaO2: 94 (2L)
Physical Exam
-
General: Awake, Oriented and AOx3
Cardiovascular: Regular rate & rhythm, No Murmurs, No Rub and No Gallop
Respiratory: Decreased Breath Sounds (at bases, otherwise clear)
Sternum: Stable
Incision: Clean, Dry, Intact and Dressing Intact
Extremities: Edema +1
Data Reviewed
-
Lab Results: Results Reviewed
Medications: Active Meds Reviewed
Chest X-Ray: Report Reviewed and Image Reviewed
ECG: Report Reviewed and Image Reviewed
[2025-03-08 04:31] LABS: Blood Urea Nitrogen 29 mg/dl (7-17); Calcium 9.1 mg/dl (8.4-10.2); Carbon Dioxide 28 mmol/L (22-30); Chloride 100 mmol/L (98-107); Estimated Creatinine Clearance 61 ml/min; Glucose 141 mg/dl (70-99); Magnesium 1.8 mg/dl (1.6-2.3); Potassium 5.1 mmol/L (3.5-5.1); Sodium 132 mmol/L (135-145); eGFR > 60.00
--- NOTE | 2025-03-08 04:56 | PTCARENOTE ---
Pt reassessed. Pt remains SR on the tele monitor. HR 70s. BP stable. PAPs 30s/teens. CVP teens. CI 1.96. Pt on 2 L NC. POX 93%. Rubi catheter intact and draining yellow urine. UO good. All surgical sites stable. Pt repositioned in bed. All lines
leveled, zeroed, and flushed. Amiodarone infusing as ordered. Labs drawn and sent. Call craft within reach.
[2025-03-08] MEDS: SYNTHROID 88 MCG PO (06:30)
[2025-03-08] MEDS: TYLENOL 975 MG PO ×3 (06:30→20:34)
[2025-03-08] MEDS: NOVOLOG FLEXPEN-LOW RESISTANCE 1 UNITS SC (07:22)
[2025-03-08 07:25] LABS: Glucose - Point of Care 156 mg/dl (70-99)
[2025-03-08] MEDS: LIDOCAINE 4% PATCH TOPICAL (07:39)
[2025-03-08] MEDS: NEURONTIN 100 MG PO ×3 (07:46→22:36)
[2025-03-08] MEDS: BUMEX 2 MG IV ×2 (07:46→20:34)
[2025-03-08] MEDS: BACTROBAN 2% OINTMENT 1 APPLIC NASAL (07:46)
[2025-03-08] MEDS: GLUCOPHAGE 500 MG PO ×2 (07:47→17:12)
[2025-03-08] MEDS: TOPROL XL 12.5 MG PO (07:47)
[2025-03-08] MEDS: PROTONIX 40 MG PO (07:47)
[2025-03-08] MEDS: LIPITOR 20 MG PO (07:47)
[2025-03-08] MEDS: PLAVIX 75 MG PO (07:47)
[2025-03-08] MEDS: MAGNESIUM OXIDE 400 MG PO ×2 (07:47→20:34)
[2025-03-08] MEDS: SENOKOT 8.6 MG PO (07:48)
[2025-03-08] MEDS: CORDARONE 103 MG IV (07:57)
--- NOTE | 2025-03-08 08:00 | PTCARENOTE ---
Received pt from maintenance technician 3rd shift RN; pt AAOX3 and resting comfortably in chair; A-fib on monitor and VSS; Eric Jackson floated to 39 an PIV x1 all lines leveled and zeroed; Amiodarone infusing see flow sheet for details and Amiodarone bolus infusing
per CTNP order; Lungs diminished; IS to 750; hypoactive bowel sounds; Rubi catheter draining yellow/juanita urine; +2 generalized edema; palpable pulses throughout; all surgical sites C/D/I; see nursing documentation for further details.
CI 1.60
CO 3.08
SVR 1454
--- NOTE | 2025-03-08 08:15 | PN.DE.MGMTRT ---
Insulin Management
- -
03/08/2025: Diabetes Management Follow up
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
replacement. Patient has known severe aortic valve stenosis.
States was told she was pre-diabetic and has been taking Metformin 500mg twice a day. Has a monitor and has been testing her blood sugars at home.
A1C 6.0%, Cr 0.6, eGFR >60
Pt awake, alert, oriented, sitting up in bed, offers no complaints, able to discuss diabetes care plan.
Now POD #4 s/p AVR #23mm Freestyle root replacement w/reimplantation of coronaries, CABG x 1 SVG-RCA.
Transitioned off insulin infusion on 03/06 to Metformin 500mg BID. Yesterday glucose range 200 to 250.
Discussed adding Farxiga. Reviewed cardiovascular risk reduction and cardioprotective effects of sglt2 and pt was agreeable.
Will start Farxiga 10mg daily, 1st dose now. Requested CM to verify coverage for Farxiga/Jardiance.
Pt was counseled on SE of SGLT2 including Genitourinary tract bacterial and yeast infections and was instructed to notify her PCP at sx onset.
Discussed with Nurse, will cont to monitor.
Pt states has a glucose monitor at home.
Diabetes History
- -
Type of Diabetes: 2
Pre-Admission Diabetes Regimen
03/08/25
03:56
Creatinine 0.9
Insulin Pump Settings
IP Diabetes Regimen
03/07/25 03/07/25 03/07/25
12:59 17:13 23:12
Glucose
POC Glucose 250 H 208 H 169 H
03/08/25 03/08/25
03:56 07:21
Glucose 141 H
POC Glucose 156 H
Meal type: Breakfast
Amount consumed: 75%
Patient Education
--- NOTE | 2025-03-08 08:44 | W.PN.INTV ---
Today's Communication / Plan
Recommendations
- Continue incentive spirometry
- Titrate dobutamine as tolerated
- Monitor input and output closely
Assessment
-
Assessment: 74-year-old female with a past medical history of severe aortic valve stenosis, single-vessel CAD, history of A-fib, DM type II, hypertension, hyperlipidemia, anxiety/depression, asthma, insomnia, history of syncope, 2:1 AV block s/p
PPM, PVD, osteoporosis and hypothyroidism who presents for elective surgical aortic valve replacement. Patient known to the cardiothoracic surgery service with last visit on 02/12/[address] Lyles. Patient has known severe aortic valve stenosis.
TAVR was initially planned however there were concerning measurements from her CT hence it was not arranged. She was referred for surgical aortic valve replacement with possible root enlargement. Multiple options were discussed and the patient
agreed for surgical intervention. On 03/04/2025, she underwent SAVR with #23 mm freestyle root replacement with reimplantation of coronaries and CABG x 1. Patient tolerated the procedure well and transferred to the CVICU for further care.
Safety Sitter services consulted for additional management/recommendations.
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
CAD, 2:1 AV block s/p PPM (11/18/2024), PVD, osteoporosis, left hip fracture, leukocytosis
03/08 overview: Currently MAP of 85. Current infusions amiodarone infusing at 0.5. CVP of 13. Pulmonary pressures, 32/16, mean of 21. Saturating 95% on 2 L supplemental oxygen. Respiratory rate around 18, heart rate around 80, normal sinus
rhythm. 2+ bilateral edema on exam. Cardiac index 1.6
Assessment and plan
#1. Bicuspid aortic valve with aortic stenosis s/p AVR with #23 mm freestyle root replacement with reimplantation of coronaries + CABG x 1 (SVG�RCA) � POD #4
- Management per CT surgery service
- Extubated 03/04, currently saturating well on 2 L supplemental oxygen. Chest x-ray suggestive of bilateral lower lobe atelectasis, more on the left side. Incentive spirometry encouraged. No wheezing on exam.
#2. Shock, cardiogenic
- C.I. 1.6 without pressors on 03/08, dobutamine being re-initiated
- Monitor input and output closely. Renal function normal
- Fluid balance, -493 mL. Received 2 mg of Bumex this morning. Chest x-ray without suggestion of pulmonary edema
- 2+ pitting edema noted bilaterally, received Bumex IV
#3. Paroxysmal Atrial Fibrillation with RVR
- Status post amiodarone bolus, currently on amiodarone infusion at 0.5. Reverted to normal sinus rhythm, currently heart rate around 80/min
- Cardiology service on case
- Potassium 5.1 this morning, magnesium 1.8. Target potassium above 4, magnesium above 2
#4. History of 2: 1 heart block with LAFB
- s/p PPM (October 2024)
Other medical diagnoses:
- Hypertension, hyperlipidemia
- Diabetes mellitus
- Anxiety/depression
- Coronary artery disease, Plavix resumed. Allergic to aspirin
- Hypothyroidism, on replacement
- History of asthma, no current wheezing
- Postop blood loss anemia as well as coagulopathy, s/p PRBCs, platelets, fresh frozen plasma and DDAVP.
Aspiration precautions
DVT prophylaxis. SCDs
GI prophylaxis. On Protonix
Early nutrition
Early mobilization
Safety Sitter service will continue to follow along while patient remains CVICU status. Once transferred to CVICU�telemetry status, then we will sign off at that time.
Critical care statement: A total of 45 minutes of critical care time was provided for this patient today. This includes management of ventilator, spontaneous breathing trial, arterial blood gases, pressors, of unstable vital signs, evaluation of the
patient at bedside, reviewing the patient's pertinent medical records including radiographs, microbiology, laboratory evaluations, and discussion with primary team and critical care nursing.
Subjective Dataa
Subjective Data
Date of Service:
Date of Service: March 08, 2025
Chief Complaint: Safety Sitter Follow Up
Subjective:
Patient comfortably sitting in bed in no acute distress.
Review of Systems
Cardiopulmonary: Cough (Minimal cough) and Edema
Genitourinary: Other (No other new symptoms reported)
Objective Data
Data Reviewed
Vital Signs / I&O / Oxygen:
Vital Signs
Temp Pulse Resp BP Pulse Ox
99.2 F 120 20 120/70 94
03/08/25 08:00 03/08/25 08:00 03/08/25 08:00 03/08/25 08:00 03/08/25 08:00
Intake and Output
03/07/25 03/08/25 03/09/25
06:59 06:59 06:59
Intake Total 3719.5 / 3774.5 1355.3 / 1392.0 176.4 / 176.4
Output Total 1954 / 2009 1750 / 1750 60 / 60
Balance 1764.5 / 1764.5 -394.7 / -358.0 116.4 / 116.4
SaO2 [CPAP/PSV] 99
SaO2 [SIMV] 100
SaO2 94
Nasal Cannula flow liters per 2
minute
Physical Exam
General: Comfortable
HEENT: Normocephalic and Anicteric
Cardiovascular: S1-S2 and Peripheral Edema (2+ bilaterally )
Respiratory: Clear, Crackles (negative), Rhonchi (negative), Non-Labored Respirations and Chest Tube
GI: Soft, Distended, Non Tender and Normal Bowel Sounds
Neurology: Awake, Alert (Drowsy at times), Oriented and Tremors (negative)
Skin: Warm, Dry, Cyanosis (negative) and Jaundice (negative)
Labs/Micro/Reports
Lab Data
03/08/25 03:56
03/08/25 03:56
[2025-03-08] MEDS: DOBUTREX 500 MG 250 IV (09:11)
--- NOTE | 2025-03-08 09:12 | PTCARENOTE ---
Dr Lyles at bedside; STAT Echo ordered by CTNP and Echo team at bedside; Dobutamine started at 3.5 mcg/kg/min; lactic acid and mixed venous collected and sent to lab.
--- NOTE | 2025-03-08 09:46 | CARDSERVDEF ---
Echocardiogram with Definity completed after protocol screening completed. Allergies verified.
Patent IV site: _left AC____
IV site flushed with 0.9% NaCl pre and post administration.
Diluted bolus method utilized to enhance visualization of ventricular puente.
Total volume given: _2.5___ mL
Patient tolerated all procedures well without complications.
[2025-03-08] MEDS: FARXIGA 10 MG PO (09:58)
[2025-03-08] MEDS: COZAAR 50 MG PO (09:58)
[2025-03-08] MEDS: FLEXBUMIN 50 IV ×3 (10:25→23:25)
[2025-03-08] MEDS: MIRALAX 17 GRAMS PO (10:25)
--- NOTE | 2025-03-08 11:13 | PTCARENOTE ---
Assessment unchanged; NSR on monitor and VSS: Dobutamine and Amiodarone infusing see flow sheet for details; pt resting comfortably in bed.
--- NOTE | 2025-03-08 11:53 | CM ---
Addendum entered by Pam Bo 03/08/25 16:10:
priced- spoke to pt , she does not want to pay for expensive meds. asked for generic.
Original Note:
priced meds: Farxiga 10 mg QD- first month is $554 (of this she still owes $590 of her deductible) once the deductible is satisfied, then she pays 25% cost of the med for tier 3- or approx 140/month---Jardiance is also tier 3 med and the cost is the
same.
[2025-03-08 12:52] LABS: Glucose - Point of Care 131 mg/dl (70-99)
[2025-03-08] MEDS: NOVOLOG FLEXPEN-LOW RESISTANCE SC ×2 (12:54→17:12)
--- NOTE | 2025-03-08 15:44 | PTCARENOTE ---
Assessment unchanged; NSR on monitor and VSS; pt resting comfortably in chair; Dobutamine infusing per protocol see flow sheet for details.
--- NOTE | 2025-03-08 16:18 | CM ---
spoke to pt in room, PT/OT are recommending acute rehab. she is agreeable to [facility] - referral faxed, awaiting bed avail.
[2025-03-08 16:49] LABS: Potassium 4.2 mmol/L (3.5-5.1)
--- NOTE | 2025-03-08 17:00 | W.PN.UPDATE ---
Update Note
Progress Note Update
Dobutamine restarted this AM @ 3.5 mcg/kg/min per d/w Dr. Lyles for CI 1.6 in atrial fibrillation. TTE (on Dobut x 10-15min & in NSR) reported EF 70-75%, AV 48/24mmHg, no AI, MV 7/3mmHg, tr MR, mild-mod TR. Trending MVO2, lactate, LFTs, INR. Maintain
Dobutamine @ current rate (weaned to 2.5mcg/kg/min) overnight and wean by 0.5mcg/kg/min daily. Excellent diuresis (>2L) with Bumex 2mg IV BID. K+ stable @ 4.2. No further AF episodes.
--- NOTE | 2025-03-08 17:02 | W.PN.CARDCBS ---
Documented by User: RAE Rose 03/08/25 17:08
Impression / Plan
-
Primary Production Line Technician: Dr. Fischer
Assessment:
s/p AVR #23mm Freestyle root replacement w/reimplantation of coronaries, CABG x 1 SVG-RCA 03/04/25
Severe aortic stenosis
CAD of mid to distal LAD by cath 10/2024
History of syncope
Bifascicular block
2-1 and 3-1 AV block at time of cath s/p SJM PPM 11/18/24
PAF
DM2
HTN
HLD
Hypothyroidism
ECHO 10/26/24: Preserved LV function, severe concentric LVH, mean aortic gradient of 51 mmHg with mild to moderate AR and valve area 0.6 cm�
Echo 03/08/2025: Vigorous LV systolic function, EF 70 to 75%, study done on IV dobutamine. Normal RV size and function, mild to moderate TR, PAP 39 mmHg, status post 23 mm Medtronic AVR and aortic root replacement peak/mean gradients 48/24 mmHg
respectively. No AI. No pericardial effusion. Compared to intraoperative MYRNA 03/04/2025, prior mean gradient 15 mmHg and no AI
Plan:
POD #4 s/p AVR #23mm Freestyle root replacement w/reimplantation of coronaries, CABG x 1 SVG-RCA� by Dr. Lyles on 03/04/25
-Postop A-fib this morning currently in sinus rhythm�amiodarone bolus drip started by CT surgery
-Off dobutamine
-Plan to DC swan/ander once stable off dobutamine
-Chest tube management per CT surgery
-Diurese
-[employer] pacemaker was checked postop
-I-S encouraged. Increase activity once delined
Progress Note - Production Line Technician
Subjective
Date of Service: March 08, 2025
Objective
Labs:
03/08/25 03:56
03/08/25 16:17
Labs
Hgb 9.3 g/dL (12.0-16.0) L 03/08/25 03:56
Hct 27.9 % (37.0-47.0) L 03/08/25 03:56
Plt Count 164 10^3/uL (130-400) 03/08/25 03:56
PT 16.1 Sec (11.4-14.6) H 03/04/25 20:13
INR 1.24 03/04/25 20:13
APTT 29.3 Sec (23.4-35.0) 03/04/25 20:13
Sodium 132 mmol/L (135-145) L 03/08/25 03:56
Potassium 4.2 mmol/L (3.5-5.1) 03/08/25 16:17
BUN 29 mg/dl (7-17) H 03/08/25 03:56
Creatinine 0.9 mg/dL (0.6-1.0) 03/08/25 03:56
Glucose 141 mg/dl (70-99) H 03/08/25 03:56
Vital Signs and I&O:
Vital Signs
Temp Pulse Resp BP Pulse Ox
99.1 F 88 20 131/64 95
03/08/25 16:00 03/08/25 16:06 03/08/25 16:00 03/08/25 16:06 03/08/25 16:00
Vital Signs
Temp Pulse Resp BP Pulse Ox
99.1 F 88 20 131/64 95
03/08/25 16:00 03/08/25 16:06 03/08/25 16:00 03/08/25 16:06 03/08/25 16:00
Intake & Output
03/06/25 03/07/25 03/08/25 03/09/25
06:59 06:59 06:59 06:59
Intake Total 2821.2 / 2853.2 3719.5 / 3774.5 1355.3 / 1392.0 636.8 / 636.8
Output Total 1735 / 1760 1954 1750 / 1750 2009
Balance 1086.2 / 1093.2 1764.5 / 1764.5 -394.7 / -358.0 -1373.2 / -1373.2

Documented by User: Sara Pete DO 03/08/25 18:57
Today's Communication / Plan
-
Supportive postop care
IV dobutamine with monitoring of hemodynamics
Diurese
Monitor for recurrent atrial fibrillation
Impression / Plan
-
Primary Production Line Technician: Dr. Fischer
Assessment:
s/p AVR #23mm Freestyle root replacement w/reimplantation of coronaries, CABG x 1 SVG-RCA 03/04/25
Severe aortic stenosis
CAD of mid to distal LAD by cath 10/2024
History of syncope
Bifascicular block
2-1 and 3-1 AV block at time of cath s/p SJM PPM 11/18/24
PAF
DM2
HTN
HLD
Hypothyroidism
ECHO 10/26/24: Preserved LV function, severe concentric LVH, mean aortic gradient of 51 mmHg with mild to moderate AR and valve area 0.6 cm�
Echo 03/08/2025: Vigorous LV systolic function, EF 70 to 75%, study done on IV dobutamine. Normal RV size and function, mild to moderate TR, PAP 39 mmHg, status post 23 mm Medtronic AVR and aortic root replacement peak/mean gradients 48/24 mmHg
respectively. No AI. No pericardial effusion. Compared to intraoperative MYRNA 03/04/2025, prior mean gradient 15 mmHg and no AI
Plan:
s/p AVR #23mm Freestyle root replacement w/reimplantation of coronaries, CABG x 1 SVG-RCA� by Dr. Lyles on 03/04/25
-Events reviewed with Dr. Lyles. Cardiac index by Eric dropped to 1.6 in atrial fibrillation and dobutamine was restarted
-Repeat echocardiogram on dobutamine with vigorous LV systolic function 70-75%. Aortic valve appears well-seated with no valvular or paravalvular regurgitation. Peak/mean gradients 48/24 mmHg. Mitral valve sclerotic with mean gradient 3 mmHg and
trace MR. Mild to moderate TR. Echo estimated pulmonary artery systolic pressure 39 mmHg. No significant pericardial effusion.
- Patient has had several brief bouts of rapid atrial fibrillation currently in sinus rhythm.
-If has further atrial fibrillation would favor anticoagulation for PAF prior to discharge; continue amiodarone
-Postop blood loss status post 6 units packed red blood cells with stable hemoglobin, 9.3 g/dL today.
-Remains volume overloaded�continue diuretic efforts
-[employer] pacemaker was checked postop
-I-S encouraged.
- Plan for limited repeat echocardiogram once she is off support, diuresed just prior to discharge to reassess aortic valve gradients
Progress Note - Production Line Technician
Subjective
Date of Service: March 08, 2025
Patient seen and examined sitting out of bed to chair. Overall feeling okay with no reported shortness of breath or dizziness. Expected postop soreness.
Physical Exam
Physical Exam
GEN: NAD oob to chair
HEENT: mmm
LUNGS: Bronchovesicular breath sounds with scattered rhonchi and bilateral crackles. Positive Cordis/[place]
CV: Reg and tachy, S1/S2, no murmur
ABD: soft, ND +BS
EXT: 2+ edema of bilateral lower extremity.
:bang
[2025-03-08] MEDS: ALBUMIN 5% 250 IV (17:18)
[2025-03-08 17:21] LABS: Glucose - Point of Care 148 mg/dl (70-99)
[2025-03-08 17:30] LABS: INR 1.05; PT 14.0 Sec (11.4-14.6)
[2025-03-08 17:45] LABS: ALT (SGPT) 54 U/L (0-35); AST (SGOT) 59 U/L (14-36)
[2025-03-08] MEDS: ROXICODONE 5 MG PO (20:35)
[2025-03-08] MEDS: REMOVE LIDOCAINE PATCH REMOVE (20:35)
[2025-03-08 20:47] LABS: INR 1.07; PT 14.2 Sec (11.4-14.6)
[2025-03-08 20:59] LABS: ALT (SGPT) 47 U/L (0-35); AST (SGOT) 48 U/L (14-36); Albumin 3.8 g/dl (3.5-5.0); Alkaline Phosphatase 74 U/L (38-126); Blood Urea Nitrogen 26 mg/dl (7-17); Calcium 8.9 mg/dl (8.4-10.2); Carbon Dioxide 29 mmol/L (22-30); Chloride 99 mmol/L (98-107); Estimated Creatinine Clearance 55 ml/min; Glucose 145 mg/dl (70-99); Potassium 4.1 mmol/L (3.5-5.1); Sodium 133 mmol/L (135-145); Total Protein 5.7 g/dl (6.3-8.2); eGFR 58.39
--- NOTE | 2025-03-08 21:00 | PTCARENOTE ---
Patient received OOB in chair. Patient A+A+Ox3. No neurological deficits noted. Patient assisted to bed with assist x2. No c/o headache, dizziness or lightheadedness. O2 at 2L via NC. SpO2 96%. Permanent Pacemaker. Sinus Rhythm. Heart rate
90's. Blood pressure - right upper arm cuff - 143/54 (73). Dobutamine gtt 2.5 mcq/kg/min (6.9 ml/hr). Right [place]. Cord[place]. C.O. 5.81 C.I. 3.03 SVR 1018 PAP 30/13 (18) CVP 11. Patient with no c/o chest pain, pressure or discomfort.
Abdomen round, nontender. Normoactive bowel sounds. Rubi catheter - Temperature sensing - Outputs as documented. Sternal incision intact. Chest tube dressing intact. Right groin intact/Ecchymotic. Right lower extremity incisions intact -
Ecchymotic. Edema. Positive, palpable pulses. Assessment as documented.
[2025-03-08] MEDS: PACERONE 200 MG PO (23:55)
[2025-03-08] MEDS: MAGNESIUM SULFATE 102 GRAMS IV (23:56)
[2025-03-09] VITALS (27 sets, daily range): BP systolic 86–172; BP diastolic 48–74; BMI 32.1
--- NOTE | 2025-03-09 01:00 | PTCARENOTE ---
Patient sleeping without difficulty. Amiodarone 200 mg PO given. Flexbumin 12.5 grams/50 ml IV administered. Magnesium sulfate 1 gram/100 ml IV administered. C.O. 5.37 C.I. 2.80 SVR 1236 PAP 32/12 (20). CVP 11. Assessment/Interventions as
documented.
[2025-03-09] MEDS: NSS 500 IV (02:00)
--- NOTE | 2025-03-09 03:45 | PTCARENOTE ---
Patient sleeping without difficulty. C.O. 5.56 C.I. 2.90 SVR 906 PAP (20) CVP 12. AM labs collected and sent. Assessment/Interventions as documented.
--- NOTE | 2025-03-09 03:49 | W.PN.CT ---
Today's Communication / Plan
-
Plan:
-No major issues overnight. Hemodynamically and neurologically intact
-Dobutamine back on @ 2.5 mcg/kg/min yesterday 03/08/25 after d/c'd on 03/07 following PAF
-Completed course of amiodarone gtt yesterday, currently on PO Amiodarone. BB on hold while on Dobutamine. Back in a-fib with RVR (140's) @ 0549 after cxr, converted @
0611, will resume Amiodarone gtt and initiate Eliquis, will keep on Plavix for now per Dr. Lyles
-Last CI 2.9, MVO2 63.8%
-Repeat TTE yesterday 03/08 while on dobutamine gtt showed an intact AVR, no AI with PG/MG 48/24, mild-moderate MR, RV within normal limits, EF 70-75%
-Had diarrhea yesterday 03/08, has resolved after holding Senokot and Miralax
-Received 1u PRBC 03/06, h/h 7.5/22.7 down from 9.3/27.9 yesterday, likely hemodilutional from 25% albumin x 3 yesterday
-Received multiple blood products postop, cont. diuresis with Bumex (did not respond well with Lasix), wt was up 19 lbs from preop yesterday, check wt today
-Maintain bang catheter for accurate I/O while on dobutamine and being diuresed. 24hr u/o 3565mL
-Chest tubes d/c'd 03/07 without incident
-Maintain swan and cordis while on dobutamine
-Will replete mg of 1.8 today
-Will replete K of 3.8
-A/V wires d/c'd on 03/05
-No ASA (NSAIDs)d/t allergy
-Cont. current meds (Plavix, Amiodarone, Lipitor, Losartan, Bumex)
-Encourage use of IS
-OOB into chair/Ambulate
-Will consult PT/OT
Assessment / Plan
-
Impression:
- Bicuspid aortic valve with - s/p AVR #23mm Freestyle root replacement w/reimplantation of coronaries, CABG x 1 SVG-RCA� by Dr. Lyles on 03/04/25, pod #5
- s/p [employer] pacer 11/18/24
- hx syncope
- hx of a-fib in 2016
- CAD/ 70% distal LAD- ASA contraindicated d/t allergy. Will resume Plavix when tolerating solids
- Allergy to NSAIDs with hives/swelling
- HTN/HLD
- DM II (HgA1c 6.0)
- Anxiety/depression
- Asthma
- Insomnia
- Benign neoplasm of colon
- Osteoarthritis
- Hypothyroidism
- PVD
- L hip ORIF
- Spigelian hernia repair x5
- Acute postop blood loss anemia/ coagulopathy - s/p 5 pRBCs, 2 unit platelets, 2 FFP, DDAVP
- Acute postop pulmonary insufficiency/atelectasis
- Acute postop hypovolemia with subsequent hypervolemia
- Acute postop hyponatremia
- Acute postop PAF with RVR
- Acute postop transaminitis
Discussed patient care with: Cardiology, Nursing, Respiratory Therapy, Pharmacy and Care Team
Subjective
-
Date of Service: March 09, 2025
Pt c/o mild incisional pain, otherwise feels well
Objective Data
-
PT 14.2 Sec (11.4-14.6) 03/08/25 20:25
INR 1.07 03/08/25 20:25
APTT 29.3 Sec (23.4-35.0) 03/04/25 20:13
Vital Signs
Vital Signs
Temp Pulse Resp BP Pulse Ox
98.3 F 95 16 129/48 97
03/09/25 03:15 03/09/25 03:15 03/09/25 03:15 03/09/25 03:15 03/09/25 03:15
CT Intake/Output/Weight
03/08/25 03/08/25 03/09/25
06:59 18:59 06:59
Intake Total 530.3 / 1392.0 1054.0 / 1806.1 752.1 / 1806.1
Output Total 1440 / 1750 2155 / 3190 1035 / 3190
Balance -909.7 / -358.0 -1101.0 / -1383.9 -282.9 / -1383.9
SaO2: 97 (2L)
Physical Exam
-
General: Awake, Oriented and AOx3
Cardiovascular: Regular rate & rhythm, No Murmurs and No Gallop
Respiratory: Decreased Breath Sounds (at bases, otherwise clear)
Sternum: Stable
Incision: Clean, Dry, Intact and Dressing Intact
Extremities: Other (+trace edema)
Data Reviewed
-
Lab Results: Results Reviewed
Medications: Active Meds Reviewed
Chest X-Ray: Report Reviewed and Image Reviewed
ECG: Report Reviewed and Image Reviewed
[2025-03-09 04:02] LABS: Hematocrit 22.7 % (37.0-47.0); Hemoglobin 7.5 g/dL (12.0-16.0); Mean Corp Hgb Conc. 33.0 g/dL (33.0-37.0); Mean Corpuscular Volume 91.2 fL (81.0-99.0); Platelet Count 149 10^3/uL (130-400); Red Cell Dist. Width 14.4 % (11.5-14.5)
[2025-03-09 04:26] LABS: ALT (SGPT) 39 U/L (0-35); AST (SGOT) 33 U/L (14-36); Albumin 3.3 g/dl (3.5-5.0); Alkaline Phosphatase 72 U/L (38-126); Total Protein 5.1 g/dl (6.3-8.2)
[2025-03-09 04:27] LABS: Blood Urea Nitrogen 25 mg/dl (7-17); Calcium 8.3 mg/dl (8.4-10.2); Carbon Dioxide 31 mmol/L (22-30); Chloride 101 mmol/L (98-107); Estimated Creatinine Clearance 68 ml/min; Glucose 145 mg/dl (70-99); Magnesium 1.8 mg/dl (1.6-2.3); Potassium 3.8 mmol/L (3.5-5.1); Sodium 134 mmol/L (135-145); eGFR > 60.00
[2025-03-09] MEDS: KCL 40 MEQ PO (05:37)
[2025-03-09] MEDS: TYLENOL 975 MG PO ×2 (05:37→20:00)
[2025-03-09] MEDS: SYNTHROID 88 MCG PO (05:37)
[2025-03-09] MEDS: ROXICODONE 5 MG PO (05:38)
--- NOTE | 2025-03-09 06:00 | PTCARENOTE ---
Portable CXR completed - mat repairer now displaying Atrial Fibrillation. PA for CT Surgery, Jeramie Majano PA-C, made aware. Amiodarone gtt to be ordered. Patient resting in bed. Patient with no c/o chest pain, pressure, palpitations or
discomfort. Assessment/Interventions as documented.
[2025-03-09] MEDS: CORDARONE 103 MG IV (06:45)
--- NOTE | 2025-03-09 07:30 | PTCARENOTE ---
Assumed care of patient from shift manager RN. AAO x 3. Assist x 2 oob to chair , gait steady. SR/ST on monitor. RT IJ cordis with swan at 39 cm. 2 L Nc 96%. Abdomen soft and non tender. Rubi draining clear juanita urine. Plus 2 lower extremity
edema appreciated. Surgical sites c,d,i. Dobutamine infusing. Amiodarone drip initiated per protocol. Will monitor.
--- NOTE | 2025-03-09 08:02 | PN.DE.MGMTRT ---
Insulin Management
- -
03/09/2025: Diabetes Management Follow up
Patient admitted 03/04 for elective aortic valve replacement. 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 Patient has
known severe aortic valve stenosis.
States was told she was pre-diabetic and has been taking Metformin 500mg twice a day for 10 years. Has a monitor and has been testing her blood sugars at home.
A1C 6.0%, Cr 0.6, eGFR >60
Pt awake, alert, oriented, sitting up in chair, offers no complaints, able to discuss diabetes care plan. Pt states she has a glucose monitor at home.
POD #5 s/p AVR #23mm Freestyle root replacement w/reimplantation of coronaries, CABG x 1 SVG-RCA.
Transitioned off insulin infusion on 03/06 to Metformin 500mg BID. Glucose had been > 200.
Farxiga 10mg daily, started 03/08 with metformin 500 mg BID with low corrective insulin. Yesterday glucose range 131 to 156. Required no corrective insulin.
Will make no change to regimen.
03/08 Pt was counseled on SE of SGLT2 including Genitourinary tract bacterial and yeast infections and was instructed to notify her PCP at sx onset.
Discussed with Nurse
Will follow.
Diabetes History
- -
Type of Diabetes: 2
Pre-Admission Diabetes Regimen
03/08/25 03/09/25
20:25 03:43
Creatinine 1.0 0.8
Insulin Pump Settings
IP Diabetes Regimen
03/08/25 03/08/25 03/08/25
12:51 17:10 20:25
Glucose 145 H
POC Glucose 131 H 148 H
03/09/25
03:43
Glucose 145 H
POC Glucose
Meal type: Breakfast
Amount consumed: 100%
Patient Education
[2025-03-09] MEDS: CORDARONE 518 MG IV (08:04)
[2025-03-09] MEDS: PROTONIX 40 MG PO (08:08)
[2025-03-09] MEDS: BUMEX 2 MG IV (08:08)
[2025-03-09] MEDS: FARXIGA 10 MG PO (08:08)
[2025-03-09] MEDS: GLUCOPHAGE 500 MG PO ×2 (08:09→17:28)
[2025-03-09] MEDS: ELIQUIS 5 MG PO ×2 (08:09→20:00)
[2025-03-09] MEDS: KCL 20 MEQ PO ×2 (08:09→20:00)
[2025-03-09] MEDS: NEURONTIN 100 MG PO ×3 (08:09→22:18)
[2025-03-09] MEDS: PACERONE 200 MG PO ×3 (08:09→22:18)
[2025-03-09] MEDS: COZAAR 50 MG PO (08:09)
[2025-03-09] MEDS: MAGNESIUM SULFATE 50 IV (08:09)
[2025-03-09] MEDS: LIPITOR 20 MG PO (08:09)
[2025-03-09] MEDS: LIDOCAINE 4% PATCH TOPICAL (08:10)
[2025-03-09] MEDS: NOVOLOG FLEXPEN-LOW RESISTANCE SC ×3 (08:35→16:19)
[2025-03-09] MEDS: PLAVIX 75 MG PO (08:37)
--- NOTE | 2025-03-09 08:49 | W.PN.INTV ---
Today's Communication / Plan
Recommendations
- Wean dobutamine as tolerated
- Follow-up chest x-ray in a.m., continue incentive spirometry and diuresis
- Monitor for any sign or symptom of infection
Assessment
-
Assessment: 74-year-old female with a past medical history of severe aortic valve stenosis, single-vessel CAD, history of A-fib, DM type II, hypertension, hyperlipidemia, anxiety/depression, asthma, insomnia, history of syncope, 2:1 AV block s/p
PPM, PVD, osteoporosis and hypothyroidism who presents for elective surgical aortic valve replacement. Patient known to the cardiothoracic surgery service with last visit on 02/12/[address] Lyles. Patient has known severe aortic valve stenosis.
TAVR was initially planned however there were concerning measurements from her CT hence it was not arranged. She was referred for surgical aortic valve replacement with possible root enlargement. Multiple options were discussed and the patient
agreed for surgical intervention. On 03/04/2025, she underwent SAVR with #23 mm freestyle root replacement with reimplantation of coronaries and CABG x 1. Patient tolerated the procedure well and transferred to the CVICU for further care.
Can Technician services consulted for additional management/recommendations.
Chronic conditions CODING ASSISTANT: Bicuspid aortic valve, severe aortic stenosis, history of A-fib, DM type II, hypertension, hyperlipidemia, asthma, anxiety/depression, insomnia, lichen sclerosis, benign neoplasm of colon, history of syncope, hypothyroidism,
CAD, 2:1 AV block s/p PPM (11/18/2024), PVD, osteoporosis, left hip fracture, leukocytosis
03/09 overview: Currently MAP of 75, dobutamine infusing at 2. Other infusions is amiodarone. Heart rate at 96. Saturating 94% on 2 L supplemental oxygen. CVP of 13. PA pressure 33/18, mean 24. Less edema noted on exam. Spirometry, able to
pull close to 1000 mL.
Assessment and plan
#1. Bicuspid aortic valve with aortic stenosis s/p AVR with #23 mm freestyle root replacement with reimplantation of coronaries + CABG x 1 (SVG�RCA) � POD #5
- Management per CT surgery service
- Extubated 03/04, currently saturating well on 2 L supplemental oxygen. Incentive spirometry encouraged. No wheezing on exam.
#2. Shock, cardiogenic
- C.I. 1.6 without pressors on 03/08, dobutamine was resumed. Currently infusing at 2
- Monitor input and output closely. Renal function normal. -1.5 L over last 24 hours
- Chest x-ray shows some increased lower lobe opacities reported as pneumonia. Patient denies any cough or expectoration, is afebrile, WBC count coming down. Suspect more likely atelectasis and volume overload rather than jas pneumonia
- Continue incentive spirometry, IV Bumex twice daily, monitor for any sign or symptom of infection. Monitor off antibiotics for now
#3. Paroxysmal Atrial Fibrillation with RVR
- Status post amiodarone bolus, currently on amiodarone infusion
- Cardiology service on case
#4. History of 2: 1 heart block with LAFB
- s/p PPM (October 2024)
Other medical diagnoses:
- Hypertension, hyperlipidemia
- Diabetes mellitus
- Anxiety/depression
- Coronary artery disease, Plavix resumed. Allergic to aspirin
- Hypothyroidism, on replacement
- History of asthma, no current wheezing
- Postop blood loss anemia as well as coagulopathy, s/p PRBCs, platelets, fresh frozen plasma and DDAVP.
Aspiration precautions
DVT prophylaxis. SCDs
GI prophylaxis. On Protonix
Early nutrition
Early mobilization
Can Technician service will continue to follow along while patient remains CVICU status. Once transferred to CVICU�telemetry status, then we will sign off at that time.
Critical care statement: A total of 42 minutes of critical care time was provided for this patient today. This includes management of ventilator, spontaneous breathing trial, arterial blood gases, pressors, of unstable vital signs, evaluation of the
patient at bedside, reviewing the patient's pertinent medical records including radiographs, microbiology, laboratory evaluations, and discussion with primary team and critical care nursing.
Subjective Dataa
Subjective Data
Date of Service:
Date of Service: March 09, 2025
Chief Complaint: Can Technician Follow Up
Subjective:
Patient comfortably sitting in chair in no acute distress
Review of Systems
Genitourinary: Other (All 14 systems reviewed and negative except as stated above in the history of present illness.)
Objective Data
Data Reviewed
Vital Signs / I&O / Oxygen:
Vital Signs
Temp Pulse Resp BP Pulse Ox
98.3 F 94 26 133/56 96
03/09/25 08:00 03/09/25 08:30 03/09/25 08:30 03/09/25 08:00 03/09/25 08:00
Intake and Output
03/08/25 03/09/25 03/10/25
06:59 06:59 06:59
Intake Total 1355.3 / 1392.0 1886.8 / 1886.8 292.5 / 292.5
Output Total 1750 / 1750 3515 / 3515 100 / 100
Balance -394.7 / -358.0 -1628.2 / -1628.2 192.5 / 192.5
SaO2 [CPAP/PSV] 99
SaO2 [SIMV] 100
SaO2 96
Nasal Cannula flow liters per 2
minute
Physical Exam
General: Comfortable
HEENT: Normocephalic and Anicteric
Cardiovascular: S1-S2 and Peripheral Edema (Improving edema, currently 1+ bilaterally)
Respiratory: Clear, Crackles (negative), Rhonchi (negative), Non-Labored Respirations and Chest Tube
GI: Soft, Distended, Non Tender and Normal Bowel Sounds
Neurology: Awake, Alert (Drowsy at times), Oriented and Tremors (negative)
Skin: Warm, Dry, Cyanosis (negative) and Jaundice (negative)
Labs/Micro/Reports
Lab Data
03/09/25 03:43
03/09/25 03:43
Laboratory Results
03/08/25 03/08/25
17:12 20:25
PT 14.0 14.2
INR 1.05 1.07
[2025-03-09 10:01] LABS: ALT (SGPT) 38 U/L (0-35); AST (SGOT) 33 U/L (14-36); Albumin 3.5 g/dl (3.5-5.0); Alkaline Phosphatase 67 U/L (38-126); Total Protein 5.2 g/dl (6.3-8.2)
--- NOTE | 2025-03-09 11:48 | PTCARENOTE ---
Resting in chair at present, awaiting lunch. VSS. Diuresing w/o issue. Assessment otherwise unchanged from prior.
[2025-03-09] MEDS: NSS IV (13:03)
--- NOTE | 2025-03-09 13:17 | PTCARENOTE ---
Pt with 10 minutes of Afib. HR 140's VSS. CT ASSISTANT WINEMAKER aware.
--- NOTE | 2025-03-09 14:02 | W.PN.CARDCBS ---
Addendum entered and electronically signed by Rudy Ramirez MD 03/09/25 17:33:
Patient still with SG catheter, dobutamine running at 2 mcg/KG/minute, Amio restarted for brief episode of A-fib, now on Eliquis
Offers no complaints
Meds reviewed
Data reviewed
Overall feeling relatively well
121/55, pulse 90s, respiratory 24,, weight is 90.3 kg down 0.4 kg, diminished breath sounds in bases, soft rub, no murmurs, 1+ edema pulmonary pressure 29/14, RA pressure 8, most recent cardiac index 3.0
Hemoglobin this a.m. 7.5, white count 13.8, BUN/creatinine 18 and 0.2, sodium 126
Chest x-ray: Infiltrate/effusion left base
ECG sinus rhythm, PACs,LVH, left axis, prolonged QT, IVCD/right bundle
Impression
s/p AVR #23mm Freestyle root replacement w/reimplantation of coronaries, CABG x 1 SVG-RCA 03/04/25
s/p tissue AVR and root replacement for severe 03/04/25
CAD s/p CABG with SVG to prox RCA 03/04/25
h/o syncope
Bifascicular block and 2-1 and 3-1 AV block at time of cath, s/p SJM PPM 11/18/24
PAF
DM2
HTN
HLD
Hypothyroidism
Plan:
Overall progressing
Hopefully to wean dobutamine and discontinue [place] catheter
Continue amiodarone and Eliquis
Appreciate efforts of CT surgical team
Original Note:
Today's Communication / Plan
-
Continue amiodarone PO loading
10 minutes of A-fib earlier today continue to assess burden to determine if OAC is warranted
Impression / Plan
-
PCP: Dr. Maggie Jacobs
Primary Desilverizer: Dr. Fischer
Assessment:
s/p AVR #23mm Freestyle root replacement w/reimplantation of coronaries, CABG x 1 SVG-RCA 03/04/25
s/p tissue AVR and root replacement for severe 03/04/25
CAD s/p CABG with SVG to prox RCA 03/04/25
h/o syncope
Bifascicular block and 2-1 and 3-1 AV block at time of cath, s/p SJM PPM 11/18/24
PAF
DM2
HTN
HLD
Hypothyroidism
ECHO 10/26/24: Preserved LV function, severe concentric LVH, mean aortic gradient of 51 mmHg with mild to moderate AR and valve area 0.6 cm�
Echo 03/08/2025: Vigorous LV systolic function, EF 70 to 75%, study done on IV dobutamine. Normal RV size and function, mild to moderate TR, PAP 39 mmHg, status post 23 mm Medtronic AVR and aortic root replacement peak/mean gradients 48/24 mmHg
respectively. No AI. No pericardial effusion. Compared to intraoperative MYRNA 03/04/2025, prior mean gradient 15 mmHg and no AI
Plan:
-Patient is s/p AVR #23mm Freestyle root replacement w/reimplantation of coronaries, CABG x 1 SVG-RCA� by Dr. Lyles on 03/04/25.
-Dobutamine had been stopped on 03/08/2025 due to recurrence of A-fib. Patient had a drop in CI and dobutamine restarted later in the day on 03/08/2025. Dobutamine currently running at 2
-Echo from 03/08/2025 noted above reviewed by me. EF preserved at 70 to 75%. Plan is for repeat echo once stable off of dobutamine.
-ECG and telemetry reviewed by me, patient is SR with PACs. Patient had about 10 minutes of A-fib around 1:00 on 03/09/2025 and spontaneously converted back to SR.
-Patient received amiodarone bolus 03/08/2025 and now continues on amiodarone gtt 03/09/2025. Patient has received a 2 gram amiodarone PO load as of 03/09/2025 AM
-Patient was not taking OAC prior to admission and if there is recurrent A-fib then patient should be started on OAC pending Hgb.
-Labs reviewed by me and Hgb 7.5 on 03/09/2025.
Progress Note - Desilverizer
Subjective
Date of Service: March 09, 2025
Feels tired, but no pain
Objective
Labs:
03/09/25 03:43
Labs
Hgb 7.5 g/dL (12.0-16.0) L 03/09/25 03:43
Hct 22.7 % (37.0-47.0) L 03/09/25 03:43
Plt Count 149 10^3/uL (130-400) 03/09/25 03:43
PT 14.2 Sec (11.4-14.6) 03/08/25 20:25
INR 1.07 03/08/25 20:25
APTT 29.3 Sec (23.4-35.0) 03/04/25 20:13
Sodium 134 mmol/L (135-145) L 03/09/25 03:43
Potassium 3.8 mmol/L (3.5-5.1) 03/09/25 03:43
BUN 25 mg/dl (7-17) H 03/09/25 03:43
Creatinine 0.8 mg/dL (0.6-1.0) 03/09/25 03:43
Glucose 145 mg/dl (70-99) H 03/09/25 03:43
Vital Signs and I&O:
Vital Signs
Temp Pulse Resp BP Pulse Ox
98.5 F 91 30 106/74 96
03/09/25 11:00 03/09/25 13:00 03/09/25 13:00 03/09/25 13:00 03/09/25 11:00
Vital Signs
Temp Pulse Resp BP Pulse Ox
98.5 F 91 30 106/74 96
03/09/25 11:00 03/09/25 13:00 03/09/25 13:00 03/09/25 13:00 03/09/25 11:00
Intake & Output
03/07/25 03/08/25 03/09/25 03/10/25
06:59 06:59 06:59 06:59
Intake Total 3719.5 / 3774.5 1355.3 / 1392.0 1886.8 / 1886.8 786.5 / 786.5
Output Total 1954 1750 / 1750 3515 / 3515 2300 / 2300
Balance 1764.5 / 1764.5 -394.7 / -358.0 -1628.2 / -1628.2 -1513.5 / -1513.5
Physical Exam
Physical Exam
GEN: NAD, AAO x 3
HEENT: EOMI
LUNGS: 2 L NC, no audible wheeze
CV: SR on telemetry
[2025-03-09] MEDS: TYLENOL PO (14:28)
[2025-03-09 15:44] LABS: ALT (SGPT) 24 U/L (0-35); AST (SGOT) 18 U/L (14-36); Albumin 2.9 g/dl (3.5-5.0); Alkaline Phosphatase 54 U/L (38-126); Blood Urea Nitrogen 18 mg/dl (7-17); Calcium 7.2 mg/dl (8.4-10.2); Carbon Dioxide 22 mmol/L (22-30); Chloride 96 mmol/L (98-107); Estimated Creatinine Clearance 90 ml/min; Glucose 516 mg/dl (70-99); Potassium 3.6 mmol/L (3.5-5.1); Sodium 126 mmol/L (135-145); Total Protein 4.7 g/dl (6.3-8.2); eGFR > 60.00
--- NOTE | 2025-03-09 15:44 | CM ---
pt requesting [facility]. referral faxed, awaiting bed avail for poss Saturday or saturday.
[2025-03-09 16:38] LABS: Glucose - Point of Care 165 mg/dl (70-99)
--- NOTE | 2025-03-09 17:29 | PTCARENOTE ---
1500 labs redrawn d/t significant change in numbers and multiple critical results not fitting with clinical presentation. DIGITAL MARKETING APPRENTICE aware will follow.
[2025-03-09 17:30] LABS: Hematocrit 26.3 % (37.0-47.0); Hemoglobin 8.7 g/dL (12.0-16.0); Mean Corp Hgb Conc. 33.1 g/dL (33.0-37.0); Mean Corpuscular Volume 92.0 fL (81.0-99.0); Platelet Count 188 10^3/uL (130-400); Red Cell Dist. Width 14.8 % (11.5-14.5)
[2025-03-09 17:40] LABS: ALT (SGPT) 36 U/L (0-35); AST (SGOT) 30 U/L (14-36); Albumin 3.5 g/dl (3.5-5.0); Alkaline Phosphatase 79 U/L (38-126); Blood Urea Nitrogen 20 mg/dl (7-17); Calcium 8.5 mg/dl (8.4-10.2); Carbon Dioxide 27 mmol/L (22-30); Chloride 97 mmol/L (98-107); Estimated Creatinine Clearance 90 ml/min; Glucose 288 mg/dl (70-99); Magnesium 2.0 mg/dl (1.6-2.3); Potassium 4.3 mmol/L (3.5-5.1); Sodium 130 mmol/L (135-145); Total Protein 5.4 g/dl (6.3-8.2); eGFR > 60.00
[2025-03-09] MEDS: DOBUTREX 500 MG 250 IV (18:10)
[2025-03-09] MEDS: FLEXERIL 5 MG PO (19:59)
[2025-03-09] MEDS: MAGNESIUM OXIDE 400 MG PO (20:01)
--- NOTE | 2025-03-09 21:00 | PTCARENOTE ---
Assumed care of patient from prior shift RN. AAO x 3. In chair, ambulated to bed , gait steady. Denies pain , NSR on monitor. RT IJ cordis with swan at 39 cm. Left PIV 20, Lungs clear, diminshed at bases, 2 L NC 96%. Abdomen soft and non tender.
Rbui draining clear yellow urine. Surgical sites CDI and stable. Dobutamine infusing 1.5 dropped to 1.0 2100. Amiodarone drip@.5 See workflow for assessment details. CHG bath completed
[2025-03-09 21:23] LABS: ALT (SGPT) 48 U/L (0-35); AST (SGOT) 45 U/L (14-36); Albumin 3.6 g/dl (3.5-5.0); Alkaline Phosphatase 81 U/L (38-126); Total Protein 5.6 g/dl (6.3-8.2)
[2025-03-09] MEDS: REMOVE LIDOCAINE PATCH 1 PATCH REMOVE (22:17)
--- NOTE | 2025-03-09 23:59 | PTCARENOTE ---
Patient resting in bed, labs drawn and stated 3/10 back pain, PRN Tylenol given, pain controlled. vital sign stable, resting comfortably
[2025-03-10] VITALS (26 sets, daily range): BP systolic 107–160; BP diastolic 47–115; PULSE 92–101; O2SAT 94; BMI 32.0
[2025-03-10] MEDS: ROXICODONE 5 MG PO ×2 (02:22→14:45)
[2025-03-10] MEDS: TYLENOL 650 MG PO (02:22)
--- NOTE | 2025-03-10 02:46 | PTCARENOTE ---
patient ambulated in room , OOB to chair, patient was having trouble getting comfortable in bed due back pain, tyelenol and terra given labs drawn, vitals stable. had 5 minute period of Afib around 0100 and converted back without intervention.
[2025-03-10 02:48] LABS: Hematocrit 26.0 % (37.0-47.0); Hemoglobin 8.5 g/dL (12.0-16.0); Mean Corp Hgb Conc. 32.7 g/dL (33.0-37.0); Mean Corpuscular Volume 93.5 fL (81.0-99.0); Platelet Count 201 10^3/uL (130-400); Red Cell Dist. Width 15.0 % (11.5-14.5)
[2025-03-10 03:11] LABS: ALT (SGPT) 50 U/L (0-35); AST (SGOT) 42 U/L (14-36); Albumin 3.6 g/dl (3.5-5.0); Alkaline Phosphatase 86 U/L (38-126); Total Protein 5.7 g/dl (6.3-8.2)
[2025-03-10 03:12] LABS: Blood Urea Nitrogen 24 mg/dl (7-17); Calcium 9.2 mg/dl (8.4-10.2); Carbon Dioxide 31 mmol/L (22-30); Chloride 98 mmol/L (98-107); Estimated Creatinine Clearance 68 ml/min; Glucose 125 mg/dl (70-99); Magnesium 2.0 mg/dl (1.6-2.3); Potassium 4.6 mmol/L (3.5-5.1); Sodium 133 mmol/L (135-145); eGFR > 60.00
--- NOTE | 2025-03-10 04:13 | W.PN.CT ---
Today's Communication / Plan
-
Plan:
-No major issues overnight. Hemodynamically and neurologically intact
-Slow wean off Dobutamine, weaned to 1mcg/kg/min last night. Last CI 2.91, MVO2 66.9%
-On Amiodarone gtt for PAF. BB remains on hold while on Dobutamine
-On Eliquis and Plavix, has NSAID allergy and not on ASA
-Bumex decreased to 2mg IV Qdaily from BID, 24hrs u/o 3615 mL. Lactic acid 1.2 this AM. Check wt today, has been up
-Repeat TTE on 03/08 while on dobutamine gtt showed an intact AVR, no AI with PG/MG , mild-moderate MR, RV within normal limits, EF 70-75%
-Had diarrhea on 03/08, has resolved after holding Senokot and Miralax
-Received 1u PRBC 03/06, h/h 8.5 today, was 7.5/22.7 yesterday. Likely hemodilutional
-Has received multiple blood products
-Will likely d/c melissa hutchins and merritt today if able to wean off of Dobutamine
-Maintain cordis for Amiodarone gtt
-Cont. current meds (Plavix, Amiodarone, Lipitor, Losartan, Bumex)
-Encourage use of IS
-Wean off of O2
-For 2-view cxr tomorrow
-OOB into chair/Ambulate
-Will consult PT/OT
-Eventual [facility] placement in motion
Assessment / Plan
-
Impression:
- Bicuspid aortic valve with - s/p AVR #23mm Freestyle root replacement w/reimplantation of coronaries, CABG x 1 SVG-RCA� by Dr. Lyles on 03/04/25, pod #6
- s/p [facility] pacer 11/18/24
- hx syncope
- hx of a-fib in 2016
- CAD/ 70% distal LAD- ASA contraindicated d/t allergy. Will resume Plavix when tolerating solids
- Allergy to NSAIDs with hives/swelling
- HTN/HLD
- DM II (HgA1c 6.0)
- Anxiety/depression
- Asthma
- Insomnia
- Benign neoplasm of colon
- Osteoarthritis
- Hypothyroidism
- PVD
- L hip ORIF
- Spigelian hernia repair x5
- Acute postop blood loss anemia/ coagulopathy - s/p 5 pRBCs, 2 unit platelets, 2 FFP, DDAVP
- Acute postop pulmonary insufficiency/atelectasis
- Acute postop hypovolemia with subsequent hypervolemia
- Acute postop hyponatremia
- Acute postop PAF with RVR
- Acute postop transaminitis
Discussed patient care with: Cardiology, Nursing, Respiratory Therapy, Pharmacy and Care Team
Subjective
-
Date of Service: March 10, 2025
Pt c/o mild incisional pain, otherwise feels well
Objective Data
-
Lab Results
03/10/25 02:35
03/10/25 02:35
PT 14.2 Sec (11.4-14.6) 03/08/25 20:25
INR 1.07 03/08/25 20:25
APTT 29.3 Sec (23.4-35.0) 03/04/25 20:13
Vital Signs
Vital Signs
Temp Pulse Resp BP Pulse Ox
98.8 F 86 20 155/66 97
03/09/25 20:10 03/10/25 02:30 03/10/25 02:30 03/10/25 02:00 03/10/25 02:00
CT Intake/Output/Weight
03/09/25 03/09/25 03/10/25
06:59 18:59 06:59
Intake Total 832.8 / 1886.8 1323.8 / 1793.7 469.9 / 1793.7
Output Total 1360 / 3515 3150 / 3540 390 / 3540
Balance -527.2 / -1628.2 -1826.2 / -1746.3 79.9 / -1746.3
SaO2: 97 (2L)
Physical Exam
-
General: Awake, Oriented and AOx3
Cardiovascular: Regular rate & rhythm, No Murmurs, No Rub and No Gallop
Respiratory: Decreased Breath Sounds (at bases, otherwise clear )
Sternum: Stable
Incision: Clean, Dry, Intact and Dressing Intact
Extremities: Edema +1
Data Reviewed
-
Lab Results: Results Reviewed
Medications: Active Meds Reviewed
Chest X-Ray: Report Reviewed and Image Reviewed
ECG: Report Reviewed and Image Reviewed
[2025-03-10] MEDS: SYNTHROID 88 MCG PO (06:26)
[2025-03-10] MEDS: TYLENOL PO (06:28)
--- NOTE | 2025-03-10 08:01 | W.PN.INTV ---
Today's Communication / Plan
Recommendations
- Diuresis per cardiothoracic surgery team
- Continue incentive spirometry, increase activity as tolerated
- Wean dobutamine as tolerated
- Director Staffing service will sign off once patient is transferred out of CVICU
Assessment
-
Assessment: 74-year-old female with a past medical history of severe aortic valve stenosis, single-vessel CAD, history of A-fib, DM type II, hypertension, hyperlipidemia, anxiety/depression, asthma, insomnia, history of syncope, 2:1 AV block s/p
PPM, PVD, osteoporosis and hypothyroidism who presents for elective surgical aortic valve replacement. Patient known to the cardiothoracic surgery service with last visit on 02/12/[address] Lyles. Patient has known severe aortic valve stenosis.
TAVR was initially planned however there were concerning measurements from her CT hence it was not arranged. She was referred for surgical aortic valve replacement with possible root enlargement. Multiple options were discussed and the patient
agreed for surgical intervention. On 03/04/2025, she underwent SAVR with #23 mm freestyle root replacement with reimplantation of coronaries and CABG x 1. Patient tolerated the procedure well and transferred to the CVICU for further care.
Director Staffing services consulted for additional management/recommendations.
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
CAD, 2:1 AV block s/p PPM (11/18/2024), PVD, osteoporosis, left hip fracture, leukocytosis
03/10 overview: Currently MAP of 82, CVP of 8, saturating 98% on 2 L supplemental oxygen. Current infusions dobutamine at 1 and amiodarone at 0.5. PA pressure 29/12 with mean of 19. Heart rate 79, respiratory rate 16. 2+ bilateral pitting edema
on exam.
Assessment and plan
#1. Bicuspid aortic valve with aortic stenosis s/p AVR with #23 mm freestyle root replacement with reimplantation of coronaries + CABG x 1 (SVG�RCA) � POD #6
- Management per CT surgery service
- Extubated 03/04, currently saturating well on 2 L supplemental oxygen. Incentive spirometry encouraged. No wheezing on exam.
#2. Shock, cardiogenic
- C.I. 1.6 without pressors on 03/08, dobutamine was resumed. Currently infusing at 1. Wean as tolerated.
- Monitor input and output closely. Renal function normal. -1.9 L over last 24 hours. Bilateral 2+ pitting edema on exam
- Chest x-ray shows s lower lobe opacities, suspect atelectasis. Patient denies any cough or purulent expectoration, is afebrile. WBC count is elevated at 17.6. Oxygen requirement is unchanged, continue to monitor off antibiotics.
- Continue incentive spirometry, IV Bumex daily, monitor for any sign or symptom of infection. Monitor off antibiotics for now
#3. Paroxysmal Atrial Fibrillation with RVR
- Status post amiodarone bolus, currently on amiodarone infusion
- Cardiology service on case
#4. History of 2: 1 heart block with LAFB
- s/p PPM (October 2024)
Other medical diagnoses:
- Hypertension, hyperlipidemia
- Diabetes mellitus
- Anxiety/depression
- Coronary artery disease, Plavix resumed. Allergic to aspirin
- Hypothyroidism, on replacement
- History of asthma, no current wheezing
- Postop blood loss anemia as well as coagulopathy, s/p PRBCs, platelets, fresh frozen plasma and DDAVP.
Aspiration precautions
DVT prophylaxis. on Eliquis now.
GI prophylaxis. On Protonix
Early nutrition
Early mobilization
Director Staffing service will continue to follow along while patient remains CVICU status. Once transferred to CVICU�telemetry status, then we will sign off at that time.
Critical care statement: A total of 44 minutes of critical care time was provided for this patient today. This includes management of ventilator, spontaneous breathing trial, arterial blood gases, pressors, of unstable vital signs, evaluation of the
patient at bedside, reviewing the patient's pertinent medical records including radiographs, microbiology, laboratory evaluations, and discussion with primary team and critical care nursing.
Subjective Dataa
Subjective Data
Date of Service:
Date of Service: March 10, 2025
Chief Complaint: Director Staffing Follow Up
Subjective:
Patient comfortably sitting in chair in no acute distress.
Review of Systems
Genitourinary: Other (No new pulmonary symptoms reported.)
Objective Data
Data Reviewed
Vital Signs / I&O / Oxygen:
Vital Signs
Temp Pulse Resp BP Pulse Ox
98.8 F 83 20 126/61 97
03/09/25 20:10 03/10/25 07:26 03/10/25 07:26 03/10/25 07:20 03/10/25 07:26
Intake and Output
03/09/25 03/10/25 03/11/25
06:59 06:59 06:59
Intake Total 1886.8 / 1886.8 1951.7 / 1951.7
Output Total 3515 / 3515 3665 / 3665
Balance -1628.2 / -1628.2 -1713.3 / -1713.3
SaO2 [CPAP/PSV] 99
SaO2 [SIMV] 100
SaO2 97
Nasal Cannula flow liters per 2
minute
Physical Exam
General: Comfortable
HEENT: Normocephalic and Anicteric
Cardiovascular: S1-S2 and Peripheral Edema (2+ bilateral pitting edema noted)
Respiratory: Clear, Crackles (negative), Rhonchi (negative), Non-Labored Respirations and Chest Tube
GI: Soft, Distended, Non Tender and Normal Bowel Sounds
Neurology: Awake, Alert (Drowsy at times), Oriented and Tremors (negative)
Skin: Warm, Dry, Cyanosis (negative) and Jaundice (negative)
Labs/Micro/Reports
Lab Data
03/10/25 02:35
03/10/25 02:35
[2025-03-10 08:18] LABS: Glucose - Point of Care 130 mg/dl (70-99)
[2025-03-10] MEDS: NOVOLOG FLEXPEN-LOW RESISTANCE SC ×3 (08:20→16:38)
[2025-03-10] MEDS: LIDOCAINE 4% PATCH TOPICAL (08:21)
--- NOTE | 2025-03-10 08:27 | PN.DE.MGMTRT ---
Insulin Management
- -
03/10/2025: Diabetes Management Follow up
Patient admitted 03/04 for elective aortic valve replacement. 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 Patient has
known severe aortic valve stenosis.
States was told she was pre-diabetic and has been taking Metformin 500mg twice a day for 10 years. Has a monitor and has been testing her blood sugars at home.
A1C 6.0%, Cr 0.6, eGFR >60
Pt awake, alert, oriented, sitting up in chair, offers no complaints, able to discuss diabetes care plan. Pt states she has a glucose monitor at home.
POD #6 s/p AVR #23mm Freestyle root replacement w/reimplantation of coronaries, CABG x 1 SVG-RCA.
Transitioned off insulin infusion on 03/06.
Farxiga 10mg daily, started 03/08 with metformin 500 mg BID with low corrective insulin. Yesterday glucose range 125 to 516. Concern that 516 was in error, labs drawn glucose 288. Patient refused corrective insulin.
Will make no change to regimen Farxiga 10 mg daily with metformin 500 mg BID and low corrective.
03/08 Pt was counseled on SE of SGLT2 including Genitourinary tract bacterial and yeast infections and was instructed to notify her PCP at sx onset.
Discussed with Nurse
Will follow.
Diabetes History
- -
Type of Diabetes: 2
Pre-Admission Diabetes Regimen
03/09/25 03/09/25 03/10/25
14:55 17:15 02:35
Creatinine 0.2 L 0.6 0.8
Insulin Pump Settings
IP Diabetes Regimen
03/09/25 03/09/25 03/09/25
14:55 16:36 17:15
Glucose 516 H* 288 H
POC Glucose 165 H
03/10/25 03/10/25
02:35 08:17
Glucose 125 H
POC Glucose 130 H
Meal type: Dinner
Meal type: Breakfast
Amount consumed: 100%
Amount consumed: 100%
Patient Education
[2025-03-10] MEDS: PLAVIX 75 MG PO (08:29)
[2025-03-10] MEDS: FARXIGA 10 MG PO (08:30)
[2025-03-10] MEDS: KCL 20 MEQ PO (08:30)
[2025-03-10] MEDS: LIPITOR 20 MG PO (08:30)
[2025-03-10] MEDS: MAGNESIUM OXIDE 400 MG PO ×2 (08:30→19:44)
[2025-03-10] MEDS: NEURONTIN 100 MG PO ×2 (08:30→15:01)
[2025-03-10] MEDS: ELIQUIS 5 MG PO ×2 (08:30→19:44)
[2025-03-10] MEDS: BUMEX 2 MG IV ×2 (08:30→17:53)
[2025-03-10] MEDS: GLUCOPHAGE 500 MG PO ×2 (08:30→17:52)
[2025-03-10] MEDS: COZAAR 50 MG PO (08:30)
[2025-03-10] MEDS: PACERONE 200 MG PO ×3 (08:30→22:05)
[2025-03-10] MEDS: PROTONIX 40 MG PO (08:30)
[2025-03-10] MEDS: CORDARONE 518 MG IV (08:34)
[2025-03-10 10:37] LABS: ALT (SGPT) 36 U/L (0-35); AST (SGOT) 24 U/L (14-36); Albumin 3.1 g/dl (3.5-5.0); Alkaline Phosphatase 63 U/L (38-126); Total Protein 4.8 g/dl (6.3-8.2)
--- NOTE | 2025-03-10 10:38 | PTCARENOTE ---
Patient received from material handler 1st shift RN; AAOx3, responds spontaneously to RN and follows commands; [place]; NSR on monitor; VSS; PPM present; +1 DP and +2 radial pulses present; Shallow respirations; Lungs diminished at bases; SpO2 95-100% on 2L NC;
Normoactive BS; Rubi catheter in place draining clear, yellow urine; Sternal midline incision glued, approximated, and ecchymotic - CDI, Right leg incision glued and approximated - CDI, Right groin incision glued, approximated, and ecchymotic;
Wayne-yony present in [facility] Cordis at 39 cm - all lines zeroed and leveled; PIVx1 - #20 LAC; Amiodarone and dobutamine infusing - see nursing flowsheets for further details; see nursing documentation for further details.
CO: 4.32
CI: 2.25
SVR: 1,351
[2025-03-10 11:51] LABS: Glucose - Point of Care 140 mg/dl (70-99)
--- NOTE | 2025-03-10 12:23 | PTCARENOTE ---
Patient ambulating in room with PT/OT; Patient resting comfortably in chair; Knee high TEDs stockings applied by RN; Labs drawn and sent; Patient resting comfortably in chair at this time
[2025-03-10] MEDS: TYLENOL 975 MG PO ×2 (14:45→19:45)
--- NOTE | 2025-03-10 15:08 | W.PN.CARDCBS ---
Addendum entered and electronically signed by Luisito Spear DO 03/10/25 17:47:
I saw and examined the patient.
The Quarry Worker's note was reviewed and I agree with the note.
Comment:
Plan:
Wean Dobutamine per CT surgery recommendations
IV Bumex diuresis
Cont post op care
low threshold for anticoagulation for AFib. Remains on amiodarone.
Original Note:
Today's Communication / Plan
-
Dobutamine down to 0.5
Now diuresing with Bumex 2 mg IV daily
Impression / Plan
-
PCP: Dr. Maggie Jacobs
Primary Lamp Decorator: Dr. Fischer
Impression:
s/p AVR #23mm Freestyle root replacement w/reimplantation of coronaries, CABG x 1 SVG-RCA 03/04/25
s/p tissue AVR and root replacement for severe 03/04/25
CAD s/p CABG with SVG to prox RCA 03/04/25
h/o syncope
Bifascicular block and 2-1 and 3-1 AV block at time of cath, s/p SJM PPM 11/18/24
PAF
DM2
HTN
HLD
Hypothyroidism
ECHO 10/26/24: Preserved LV function, severe concentric LVH, mean aortic gradient of 51 mmHg with mild to moderate AR and valve area 0.6 cm�
Echo 03/08/2025: Vigorous LV systolic function, EF 70 to 75%, study done on IV dobutamine. Normal RV size and function, mild to moderate TR, PAP 39 mmHg, status post 23 mm [employer] AVR and aortic root replacement peak/mean gradients 48/24 mmHg
respectively. No AI. No pericardial effusion. Compared to intraoperative MYRNA 03/04/2025, prior mean gradient 15 mmHg and no AI
Plan:
-Patient is s/p AVR #23mm Freestyle root replacement w/reimplantation of coronaries, CABG x 1 SVG-RCA� by Dr. Lyles on 03/04/25.
-Dobutamine had been stopped on 03/08/2025 due to recurrence of A-fib. Patient had a drop in CI and dobutamine restarted later in the day on 03/08/2025. Dobutamine currently running at 0.5
-Echo from 03/08/2025 noted above reviewed by me. EF preserved at 70 to 75%. Plan is for repeat echo once stable off of dobutamine.
-Patient received amiodarone bolus 03/08/2025 and now continues on amiodarone gtt 03/10/2025. Patient has received a 2.8 gram amiodarone PO load as of 03/10/2025 afternoon
-Patient was not taking OAC prior to admission and if there is recurrent A-fib then patient should be started on OAC pending Hgb.
-Patient is diuresing with Bumex 2 mg IV daily
-Labs reviewed by me and Hgb 7.5 on 03/09/2025.
Progress Note - Lamp Decorator
Subjective
Date of Service: March 10, 2025
No chest pain
Objective
Labs:
03/10/25 02:35
03/10/25 02:35
Labs
Hgb 8.5 g/dL (12.0-16.0) L 03/10/25 02:35
Hct 26.0 % (37.0-47.0) L 03/10/25 02:35
Plt Count 201 10^3/uL (130-400) 03/10/25 02:35
PT 14.2 Sec (11.4-14.6) 03/08/25 20:25
INR 1.07 03/08/25 20:25
APTT 29.3 Sec (23.4-35.0) 03/04/25 20:13
Sodium 133 mmol/L (135-145) L 03/10/25 02:35
Potassium 4.6 mmol/L (3.5-5.1) 03/10/25 02:35
BUN 24 mg/dl (7-17) H 03/10/25 02:35
Creatinine 0.8 mg/dL (0.6-1.0) 03/10/25 02:35
Glucose 125 mg/dl (70-99) H 03/10/25 02:35
Vital Signs and I&O:
Vital Signs
Temp Pulse Resp BP Pulse Ox
99.5 F 92 22 115/47 92
03/10/25 12:00 03/10/25 13:00 03/10/25 13:00 03/10/25 13:00 03/10/25 13:00
Vital Signs
Temp Pulse Resp BP Pulse Ox
99.5 F 92 22 115/47 92
03/10/25 12:00 03/10/25 13:00 03/10/25 13:00 03/10/25 13:00 03/10/25 13:00
Intake & Output
03/08/25 03/09/25 03/10/25 03/11/25
06:59 06:59 06:59 06:59
Intake Total 1355.3 / 1392.0 1886.8 / 1886.8 1951.7 / 2031.2 668.1 / 668.1
Output Total 1750 / 1750 3515 / 3515 3665 / 3665 1620 / 1620
Balance -394.7 / -358.0 -1628.2 / -1628.2 -1713.3 / -1633.8 -951.9 / -951.9
Physical Exam
Physical Exam
GEN: NAD, AAO x 3
HEENT: EOMI
LUNGS: RA, no audible wheeze
CV: SR on telemetry
[2025-03-10] MEDS: NSS IV (15:24)
[2025-03-10 16:33] LABS: Glucose - Point of Care 145 mg/dl (70-99)
--- NOTE | 2025-03-10 18:15 | PTCARENOTE ---
Patient ambulating in room with RN; Patient with 3 episodes of diarrhea and MVO2 53.2- CVNP Chiqui Mathews notified and aware; 1 U PRBC's transfused - no transfusion reactions noted and VSS throughout; IV Bumex 2 mg ordered and given following
transfusion; Patient resting comfortably in chair at this time
CO: 4.14
CI: 2.16
SVR: 1,506
--- NOTE | 2025-03-10 20:00 | PTCARENOTE ---
Assumed care of patient at 1900, report for prior RN,
Patient alert and oriented, follows all commands, moves all all extremities, OOB to chair and ambulating in room without issue. NSR on monitor;RIJ Cordis with swan at 39 cm, positional, Left AC 20, on Amiodarone and Dobutamine drips. VSS; SpO2
95% room air, Lungs diminished at bases, + BS; Rubi draining clear yellow urine; Sternal incision site CDI approximated. Right leg site and groin BINDER SORTER approximated, site ecchymotic; Patient back in bed and bathed with CHG bath, folet care
completed,SCD and precious stocking in place and on - see nursing workflow for further assessment details
[2025-03-10] MEDS: REMOVE LIDOCAINE PATCH REMOVE (22:00)
[2025-03-10] MEDS: NEURONTIN PO (22:00)
[2025-03-10] MEDS: REMERON 15 MG PO (22:04)
--- NOTE | 2025-03-10 23:00 | PTCARENOTE ---
report received from previous RN, walking rounds done. pt sleeping. VSS. Amio gtt infusing @ 0.5 mg. Dobut gtt infusing @ 0.5 mcg. NSR on monitor, HR 70s. +peripheral pulses. heart tones clear. bilateral LE edema noted. RIJ cordis + swan intact w
KVOs infusing. last CI 2.18. PAP 20s/10s. CVP ~7-10. bilateral breath sounds present. POX 95% on room air. IS encouraged. +BS. abdomen soft, nontender. bang catheter in place, draining CYU. UO adequate. all surgical sites stable. PIV intact and
patent. see worklist for full assessment, VS, and interventions.
[2025-03-11] VITALS (22 sets, daily range): BP systolic 92–156; BP diastolic 52–85; PULSE 81–85; O2SAT 92; BMI 31.3
--- NOTE | 2025-03-11 03:30 | PTCARENOTE ---
no acute changes, pt VSS. pt oriented x4, no pain at this time. VSS. NSR 70s-80s. last CI 2.27. Amio gtt remains @ 0.5 mg. Dobut gtt remains @ 0.5 mcg. POX 94% on room air. UO adequate. all surgical sites remain stable. AM labs drawn and sent. pt
resting between care.
[2025-03-11 03:44] LABS: Hematocrit 28.5 % (37.0-47.0); Hemoglobin 9.4 g/dL (12.0-16.0); Mean Corp Hgb Conc. 33.0 g/dL (33.0-37.0); Mean Corpuscular Volume 91.6 fL (81.0-99.0); Platelet Count 190 10^3/uL (130-400); Red Cell Dist. Width 15.2 % (11.5-14.5)
[2025-03-11 04:08] LABS: Blood Urea Nitrogen 20 mg/dl (7-17); Calcium 8.6 mg/dl (8.4-10.2); Carbon Dioxide 32 mmol/L (22-30); Chloride 98 mmol/L (98-107); Estimated Creatinine Clearance 68 ml/min; Glucose 119 mg/dl (70-99); Magnesium 1.7 mg/dl (1.6-2.3); Potassium 3.8 mmol/L (3.5-5.1); Sodium 133 mmol/L (135-145); eGFR > 60.00
[2025-03-11] MEDS: KCL 40 MEQ PO ×2 (04:21→21:53)
[2025-03-11] MEDS: MAGNESIUM SULFATE 50 IV (04:21)
--- NOTE | 2025-03-11 05:14 | W.PN.CT ---
Today's Communication / Plan
-
-pod #7
-no issues overnight, in nsr, no arrhythmia overnight
-drips: Dobut 0.5, Amio 0.5. mVO2 is 57.9
-s/p 1 pRBC on 03/10 for Hg 8.5- Hg today 9.4
-diuresed with iv Bumex x2 on 03/10 (UO 1920/3900 in 12/24 hrs)-continue diuresis
-got 40 KCL this am for K 3.8
-holding stool softeners d/t loose stool
-Cr stable 0.8
-Cont. current meds (Plavix, Eliquis, Amiodarone, Lipitor, Losartan, Bumex 2 mg iv daily, Glucophage, Farxiga). No ASA (allergy). Holding Toprol while on Dobut
-continue IS, OOT
-continue PT/OT
-appreciate everyone's input
-waiting for bed at [place], possible Sat or Mon
Assessment / Plan
-
Impression:
- Bicuspid aortic valve with - s/p AVR #23mm Freestyle root replacement w/reimplantation of coronaries, CABG x 1 SVG-RCA� by Dr. Lyles on 03/04/25, pod #7
- s/p [facility] pacer 11/18/24
- hx syncope
- hx of a-fib in 2016
- CAD/ 70% distal LAD- ASA contraindicated d/t allergy. Will resume Plavix when tolerating solids
- Allergy to NSAIDs with hives/swelling
- HTN/HLD
- DM II (HgA1c 6.0)
- Anxiety/depression
- Asthma
- Insomnia
- Benign neoplasm of colon
- Osteoarthritis
- Hypothyroidism
- PVD
- L hip ORIF
- Spigelian hernia repair x5
- Acute postop blood loss anemia/ coagulopathy - s/p 5 pRBCs, 2 unit platelets, 2 FFP, DDAVP
- Acute postop pulmonary insufficiency/atelectasis
- Acute postop hypovolemia with subsequent hypervolemia
- Acute postop hyponatremia
- Acute postop PAF with RVR
- Acute postop transaminitis
Discussed patient care with: Nursing and Care Team
Subjective
-
Date of Service: March 11, 2025
Objective Data
-
Lab Results
03/11/25 03:13
03/11/25 03:13
PT 14.2 Sec (11.4-14.6) 03/08/25 20:25
INR 1.07 03/08/25 20:25
APTT 29.3 Sec (23.4-35.0) 03/04/25 20:13
Vital Signs
Vital Signs
Temp Pulse Resp BP Pulse Ox
98.7 F 79 20 156/62 92
03/11/25 00:00 03/11/25 03:30 03/11/25 03:30 03/11/25 03:00 03/11/25 03:30
CT Intake/Output/Weight
03/10/25 03/10/25 03/11/25
06:59 18:59 06:59
Intake Total 627.9 / 2031.2 1878.6 / 2546.5 667.9 / 2546.5
Output Total 515 / 3665 1980 / 3900 1920 / 3900
Balance 112.9 / -1633.8 -101.4 / -1353.5 -1252.1 / -1353.5
SaO2: 92
Physical Exam
-
General: Awake and AOx3
Cardiovascular: Regular rate & rhythm (+JVD), No Murmurs and No Rub
Respiratory: Decreased Breath Sounds
Sternum: Stable
Incision: Clean, Dry and Intact
Extremities: Edema +2
Abdomen: soft, nontender, nondistended, + bowel sounds
Data Reviewed
-
Lab Results: Results Reviewed
Medications: Active Meds Reviewed
Chest X-Ray: Report Reviewed and Image Reviewed
ECG: Report Reviewed and Image Reviewed
[2025-03-11] MEDS: TYLENOL 975 MG PO ×3 (05:32→21:52)
[2025-03-11] MEDS: SYNTHROID 88 MCG PO (05:32)
--- NOTE | 2025-03-11 07:46 | W.PN.INTV ---
Addendum entered and electronically signed by Luís Castellano MD 03/11/25 16:43:
Patient transferring out of CVICU
[employer] service will sign off, please call as needed
Original Note:
Today's Communication / Plan
Recommendations
- Wean dobutamine as tolerated
- Continue diuresis, monitor renal function
- Incentive spirometry
Assessment
-
Assessment: 74-year-old female with a past medical history of severe aortic valve stenosis, single-vessel CAD, history of A-fib, DM type II, hypertension, hyperlipidemia, anxiety/depression, asthma, insomnia, history of syncope, 2:1 AV block s/p
PPM, PVD, osteoporosis and hypothyroidism who presents for elective surgical aortic valve replacement. Patient known to the cardiothoracic surgery service with last visit on 02/12/[address] Lyles. Patient has known severe aortic valve stenosis.
TAVR was initially planned however there were concerning measurements from her CT hence it was not arranged. She was referred for surgical aortic valve replacement with possible root enlargement. Multiple options were discussed and the patient
agreed for surgical intervention. On 03/04/2025, she underwent SAVR with #23 mm freestyle root replacement with reimplantation of coronaries and CABG x 1. Patient tolerated the procedure well and transferred to the CVICU for further care.
[employer] services consulted for additional management/recommendations.
Chronic conditions [employer]: Bicuspid aortic valve, severe aortic stenosis, history of A-fib, DM type II, hypertension, hyperlipidemia, asthma, anxiety/depression, insomnia, lichen sclerosis, benign neoplasm of colon, history of syncope, hypothyroidism,
CAD, 2:1 AV block s/p PPM (11/18/2024), PVD, osteoporosis, left hip fracture, leukocytosis
03/11 overview: Currently MAP of 88, dobutamine infusing at 0.5, amiodarone infusing at 0.5. CVP of 7, pulmonary artery pressure 26/12, mean 17. Saturating 93% on room air. Respiratory rate 19. Cardiac index 2.74.
Assessment and plan
#1. Bicuspid aortic valve with aortic stenosis s/p AVR with #23 mm freestyle root replacement with reimplantation of coronaries + CABG x 1 (SVG�RCA) � POD #7
- Management per CT surgery service
- Extubated 03/04, currently saturating well on RA. Incentive spirometry encouraged. No wheezing on exam.
#2. Shock, cardiogenic
- C.I. was 1.6 without pressors on 03/08, dobutamine was resumed. Currently infusing at 0.5. Wean as tolerated. Cardiac index 2.76 today
- Monitor input and output closely. Renal function normal. -1.2 L over last 24 hours. Improving pedal edema, 1+ today. Renal function stable with a creatinine of 0.8, serum bicarb mildly rising likely related to contraction alkalosis.
- Chest x-ray shows left lower lobe opacities, suspect atelectasis. Patient denies any cough or purulent expectoration, is afebrile. WBC count is improving, 16 today. Doing well on room air, saturating 93%. No cough. Monitor off antibiotics
- Continue incentive spirometry, IV Bumex daily, monitor for any sign or symptom of infection. Monitor off antibiotics for now
#3. Paroxysmal Atrial Fibrillation with RVR
- Status post amiodarone bolus, currently on amiodarone infusion
- Cardiology service on case
#4. History of 2: 1 heart block with LAFB
- s/p PPM (October 2024)
Other medical diagnoses:
- Hypertension, hyperlipidemia
- Diabetes mellitus
- Anxiety/depression
- Coronary artery disease, Plavix resumed. Allergic to aspirin
- Hypothyroidism, on replacement
- History of asthma, no current wheezing
- Postop blood loss anemia as well as coagulopathy, s/p PRBCs, platelets, fresh frozen plasma and DDAVP.
Aspiration precautions
DVT prophylaxis. on Eliquis now.
GI prophylaxis. On Protonix
Early nutrition
Early mobilization
[employer] service will continue to follow along while patient remains CVICU status. Once transferred to CVICU�telemetry status, then we will sign off at that time.
Critical care statement: A total of 42 minutes of critical care time was provided for this patient today. This includes management of ventilator, spontaneous breathing trial, arterial blood gases, pressors, of unstable vital signs, evaluation of the
patient at bedside, reviewing the patient's pertinent medical records including radiographs, microbiology, laboratory evaluations, and discussion with primary team and critical care nursing.
Subjective Dataa
Subjective Data
Date of Service:
Date of Service: March 11, 2025
Chief Complaint: [employer] Follow Up
Subjective:
Patient comfortably sitting in bed in no acute distress.
Review of Systems
Genitourinary: Other (All 14 systems reviewed and negative except as stated above in the history of present illness.)
Objective Data
Data Reviewed
Vital Signs / I&O / Oxygen:
Vital Signs
Temp Pulse Resp BP Pulse Ox
98.7 F 87 20 100/58 92
03/11/25 07:00 03/11/25 06:00 03/11/25 07:00 03/11/25 06:00 03/11/25 07:00
Intake and Output
03/10/25 03/11/25 03/12/25
06:59 06:59 06:59
Intake Total 1951.7 / 2031.2 2860.8 / 2928.9 68.1 / 68.1
Output Total 3665 / 3665 4030 / 4060 30 / 30
Balance -1713.3 / -1633.8 -1169.2 / -1131.1 38.1 / 38.1
SaO2 [CPAP/PSV] 99
SaO2 [SIMV] 100
SaO2 92
Nasal Cannula flow liters per 2
minute
Physical Exam
General: Comfortable
HEENT: Normocephalic and Anicteric
Cardiovascular: S1-S2 and Peripheral Edema (Improving, 1+)
Respiratory: Clear, Crackles (negative), Rhonchi (negative), Non-Labored Respirations and Chest Tube
GI: Soft, Distended, Non Tender and Normal Bowel Sounds
Neurology: Awake, Alert (Drowsy at times), Oriented and Tremors (negative)
Skin: Warm, Dry, Cyanosis (negative) and Jaundice (negative)
Labs/Micro/Reports
Lab Data
03/11/25 03:13
03/11/25 03:13
[2025-03-11 08:04] LABS: Glucose - Point of Care 142 mg/dl (70-99)
[2025-03-11] MEDS: NOVOLOG FLEXPEN-LOW RESISTANCE SC ×2 (08:05→12:29)
[2025-03-11] MEDS: LIDOCAINE 4% PATCH TOPICAL (08:06)
[2025-03-11] MEDS: KCL 20 MEQ PO (08:12)
[2025-03-11] MEDS: PLAVIX 75 MG PO (08:12)
[2025-03-11] MEDS: COZAAR 50 MG PO (08:12)
[2025-03-11] MEDS: LIPITOR 20 MG PO (08:12)
[2025-03-11] MEDS: MAGNESIUM OXIDE 400 MG PO ×2 (08:12→20:40)
[2025-03-11] MEDS: PROTONIX 40 MG PO (08:12)
[2025-03-11] MEDS: FARXIGA 10 MG PO (08:12)
[2025-03-11] MEDS: GLUCOPHAGE 500 MG PO ×2 (08:12→16:58)
[2025-03-11] MEDS: BUMEX 2 MG IV ×2 (08:12→16:43)
[2025-03-11] MEDS: NEURONTIN 100 MG PO ×2 (08:12→15:00)
[2025-03-11] MEDS: PACERONE 200 MG PO ×3 (08:12→21:53)
[2025-03-11] MEDS: ELIQUIS 5 MG PO ×2 (08:12→20:40)
--- NOTE | 2025-03-11 08:27 | PN.DE.MGMTRT ---
Insulin Management
- -
03/11/2025: Diabetes Management Follow up
Patient admitted 03/04 for elective aortic valve replacement. 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 Patient has
known severe aortic valve stenosis.
States was told she was pre-diabetic and has been taking Metformin 500mg twice a day for 10 years. Has a monitor and has been testing her blood sugars at home.
A1C 6.0%, Cr 0.6, eGFR >60
Pt awake, alert, oriented, sitting up in chair, offers no complaints, able to discuss diabetes care plan. Pt states she has a glucose monitor at home.
POD #7 s/p AVR #23mm Freestyle root replacement w/reimplantation of coronaries, CABG x 1 SVG-RCA.
Transitioned off insulin infusion on 03/06.
Farxiga 10mg daily, started 03/08 with metformin 500 mg BID with low corrective insulin. Yesterday glucose range 130 to 145.
3AM glucose 119. Fasting glucose 142.
Will make no change to regimen Farxiga 10 mg daily with metformin 500 mg BID and low corrective.
03/08 Pt was counseled on SE of SGLT2 including Genitourinary tract bacterial and yeast infections and was instructed to notify her PCP at sx onset. Reinforced 03/11.
Discussed with Nurse
Will follow.
Diabetes History
- -
Type of Diabetes: 2
Pre-Admission Diabetes Regimen
03/11/25
03:13
Creatinine 0.8
Insulin Pump Settings
IP Diabetes Regimen
03/10/25 03/10/25 03/11/25
11:50 16:32 03:13
Glucose 119 H
POC Glucose 140 H 145 H
03/11/25
08:02
Glucose
POC Glucose 142 H
Meal type: Dinner
Meal type: Dinner
Meal type: Lunch
Amount consumed: 100%
Amount consumed: Patient refused
Amount consumed: 75%
Patient Education
--- NOTE | 2025-03-11 09:00 | PTCARENOTE ---
Patient received from mold shifter RN; AAOx3, responds spontaneously to RN and follows commands; [place]; NSR on monitor; VSS; PPM present; +1 DP and +2 radial pulses present; Shallow respirations; Lungs diminished at bases; SpO2 91-96% on RA; IS 1250
ml; Normoactive BS; Rubi catheter in place draining clear, yellow urine; Sternal midline incision glued, approximated, and ecchymotic - CDI, Right leg incision glued and approximated - CDI, Right groin incision glued, approximated, and ecchymotic;
[place]-yony present in [facility] Cordis at 39 cm - all lines zeroed and leveled; PIVx1 - #20 LAC; Amiodarone and dobutamine infusing - see nursing flowsheets for further details; see nursing documentation for further details.
CO: 5.30
CI: 2.76
SVR: 1,313
--- NOTE | 2025-03-11 11:31 | W.PN.CARDCBS ---
Addendum entered and electronically signed by Rudy Ramirez MD 03/11/25 12:36:
Patient still feels weak but overall improving
Meds: Reviewed. IV dobutamine and IV amiodarone have been discontinued.
129/66, pulse 89, respiratory rate 18, afebrile, sats 91%, weight is 87.9 kg, if accurate down 1.9 kg, on the 14 weight was 91.3 kg admission weight was 82.6 kg
PA pressure approximately 30/10, no acute distress, still with [place], lungs are clear, soft systolic murmur, JVD okay abdomen obese, 1+ to 2+ edema
Echo is pending
ECG 03/10/2025: Sinus rhythm, LVH, incomplete right bundle branch block, left axis deviation
Hemoglobin 9.4, white count is 16, BUN and creatinine are 20 and 0.8, lactic acid is 1.9, bicarb is 32
Impression:
s/p #23mm Freestyle bioprosthetic aortic valve with root replacement w/reimplantation of coronaries, CABG x 1 SVG-RCA 03/04/25
s/p tissue AVR and root replacement for severe 03/04/25
CAD s/p CABG with SVG to prox RCA 03/04/25
h/o syncope
Bifascicular block and 2-1 and 3-1 AV block at time of cath, s/p SJM PPM 11/18/24
PAF
DM2
HTN
HLD
Hypothyroidism
Plan:
Continue supportive care.
Patient still above dry weight, continue IV bumetanide
Continue p.o. amiodarone.
Eventual restart of metoprolol, possible spironolactone
Await echo
Original Note:
Today's Communication / Plan
-
in SR
deline
diurese
echo today
follow hgb
Impression / Plan
-
PCP: Dr. Maggie Jacobs
Primary Special Equipment Technician: Dr. Fischer
Impression:
s/p AVR #23mm Freestyle root replacement w/reimplantation of coronaries, CABG x 1 SVG-RCA 03/04/25
s/p tissue AVR and root replacement for severe 03/04/25
CAD s/p CABG with SVG to prox RCA 03/04/25
h/o syncope
Bifascicular block and 2-1 and 3-1 AV block at time of cath, s/p SJM PPM 11/18/24
PAF
DM2
HTN
HLD
Hypothyroidism
ECHO 10/26/24: Preserved LV function, severe concentric LVH, mean aortic gradient of 51 mmHg with mild to moderate AR and valve area 0.6 cm�
Echo 03/08/2025: Vigorous LV systolic function, EF 70 to 75%, study done on IV dobutamine. Normal RV size and function, mild to moderate TR, PAP 39 mmHg, status post 23 mm Medtronic AVR and aortic root replacement peak/mean gradients 48/24 mmHg
respectively. No AI. No pericardial effusion. Compared to intraoperative MYRNA 03/04/2025, prior mean gradient 15 mmHg and no AI
Plan:
-Patient is s/p AVR #23mm Freestyle root replacement w/reimplantation of coronaries, CABG x 1 SVG-RCA� by Dr. Lyles on 03/04/25.
-dobutamine stopped this AM
-for echo this afternoon
-hopefully can deline today
-in SR. continue po amiodarone, toprol
-s/p 1 U PRBCs 03/10. hgb 9.4. continue eliquis, plavix
-Patient is diuresing well with Bumex 2 mg IV daily. Cr stable at 0.8
-continue post op care
-OOB as able
-plan for [facility] upon DC
-d/w nursing
Progress Note - Special Equipment Technician
Subjective
Date of Service: March 11, 2025
reports minimal pain. no SOB.
Objective
Labs:
03/11/25 03:13
03/11/25 03:13
Labs
Hgb 9.4 g/dL (12.0-16.0) L 03/11/25 03:13
Hct 28.5 % (37.0-47.0) L 03/11/25 03:13
Plt Count 190 10^3/uL (130-400) 03/11/25 03:13
PT 14.2 Sec (11.4-14.6) 03/08/25 20:25
INR 1.07 03/08/25 20:25
APTT 29.3 Sec (23.4-35.0) 03/04/25 20:13
Sodium 133 mmol/L (135-145) L 03/11/25 03:13
Potassium 3.8 mmol/L (3.5-5.1) 03/11/25 03:13
BUN 20 mg/dl (7-17) H 03/11/25 03:13
Creatinine 0.8 mg/dL (0.6-1.0) 03/11/25 03:13
Glucose 119 mg/dl (70-99) H 03/11/25 03:13
Vital Signs and I&O:
Vital Signs
Temp Pulse Resp BP Pulse Ox
98.3 F 89 15 134/65 93
03/11/25 08:00 03/11/25 11:00 03/11/25 11:00 03/11/25 11:00 03/11/25 11:00
Vital Signs
Temp Pulse Resp BP Pulse Ox
98.3 F 89 15 134/65 93
03/11/25 08:00 03/11/25 11:00 03/11/25 11:00 03/11/25 11:00 03/11/25 11:00
Intake & Output
03/09/25 03/10/25 03/11/25 03/12/25
07:59 07:59 07:59 07:59
Intake Total 1710.4 / 2002.9 2031.2 / 2069.3 2849.4 / 2887.5 474.8 / 474.8
Output Total 3455 / 3555 3665 / 3750 4060 / 4090 2089 / 2089
Balance -1744.6 / -1552.1 -1633.8 / -1680.7 -1210.6 / -1202.5 -1615.2 / -1615.2
Physical Exam
Physical Exam
GEN: No distress, awake, alert, oriented x3. sitting in chair
HEENT: supple, anicteric, mmm, eomi
LUNGS: Decreased BS B/L bases, no wheezes
CV: Reg, S1/S2, no murmur
ABD: soft, BS+, NT/ND
EXT: No cyanosis, clubbing. 1+ edema of B/L LE
NEURO: Gross non-focal
SKIN: Warm, pink, dry. No rash. Sternotomy incision c/d/i.
[2025-03-11 12:28] LABS: Glucose - Point of Care 131 mg/dl (70-99)
--- NOTE | 2025-03-11 13:08 | PTCARENOTE ---
Patient ambulating in room with PT/OT; Dobutamine and Amiodarone infusions off - see nursing flowsheets for further details; Echo at bedside; Patient resting comfortably in bed at this time
CO: 4.56
CI: 2.38
SVR: 1,438
--- NOTE | 2025-03-11 13:25 | CARDSERVLU ---
Echocardiogram with [facility] completed after protocol screening completed. Allergies verified.
Patent IV site: __L AC___
IV site flushed with 0.9% NaCl pre and post administration.
Diluted bolus method utilized to enhance visualization of ventricular puente.
Total volume given: _2.5___ mL
Patient tolerated all procedures well without complications.
[2025-03-11] MEDS: NSS IV (14:48)
[2025-03-11 17:00] LABS: Glucose - Point of Care 174 mg/dl (70-99)
[2025-03-11] MEDS: NOVOLOG FLEXPEN-LOW RESISTANCE 1 UNITS SC (17:01)
--- NOTE | 2025-03-11 17:08 | PTCARENOTE ---
[place]-yony and RIJ Cordis removed by RN at bedside - VSS throughout and no complications noted; IV Bumex 2 mg ordered and given; Patient ambulating in hallways with RN and PT; Patient resting comfortably in bed
--- NOTE | 2025-03-11 20:00 | PTCARENOTE ---
Assumed care of the patient at 1900. AAOx3, [place], following commands, [place]. NSR on CM, PPM, no pacing spikes noted, pulses palpable, trace edema of UE, +1 nonpitting edema of lower extremities. 92+% on RA, lungs dim at the bases, IS 1250. Abd SNT,
normoactive BS, appetite ok. Rubi cath in place draing clear yellow urine. MSI CDI CYNTHIA well approximated, CT sites CDI CYNTHIA, R groin and SVG CDI CYNTHIA well approximated. PIVx1 LAC20 INT. See nursing flow sheet for further intervention details.
[2025-03-11] MEDS: REMOVE LIDOCAINE PATCH REMOVE (20:41)
[2025-03-11] MEDS: REMERON 15 MG PO (21:52)
[2025-03-11] MEDS: NEURONTIN PO (21:55)
[2025-03-12] VITALS (16 sets, daily range): BP systolic 103–139; BP diastolic 51–101; PULSE 84–97; O2SAT 95; BMI 30.1
--- NOTE | 2025-03-12 | PTCARENOTE ---
Oxycodone for pain. Patient sleeping between care. VSS.
[2025-03-12] MEDS: ROXICODONE 5 MG PO (00:07)
[2025-03-12 00:08] LABS: Glucose - Point of Care 124 mg/dl (70-99)
--- NOTE | 2025-03-12 04:00 | PTCARENOTE ---
No acute changes, patient sleeping between care. VSS.
[2025-03-12] MEDS: TYLENOL 975 MG PO ×3 (06:16→19:56)
[2025-03-12] MEDS: SYNTHROID 88 MCG PO (06:16)
[2025-03-12 07:52] LABS: Blood Urea Nitrogen 20 mg/dl (7-17); Calcium 9.2 mg/dl (8.4-10.2); Carbon Dioxide 33 mmol/L (22-30); Chloride 98 mmol/L (98-107); Estimated Creatinine Clearance 66 ml/min; Glucose 130 mg/dl (70-99); Magnesium 2.0 mg/dl (1.6-2.3); Potassium 4.7 mmol/L (3.5-5.1); Sodium 134 mmol/L (135-145); eGFR > 60.00
--- NOTE | 2025-03-12 07:56 | W.PN.CT ---
Today's Communication / Plan
-
-pod #8
-no issues overnight, looks and feels better overall
-drips: none
-diuresing with Bumex
-Cr stable 0.8
-Cont. current meds (Plavix, Eliquis, Amiodarone, Lipitor, Losartan, Bumex 2 mg iv daily, Glucophage, Farxiga). No ASA (allergy). Holding Toprol while on Dobut
-continue IS, OOT
-continue PT/OT
-appreciate everyone's input
-waiting for bed at [place], possible Sat or Mon
Assessment / Plan
-
Impression:
- Bicuspid aortic valve with - s/p AVR #23mm Freestyle root replacement w/reimplantation of coronaries, CABG x 1 SVG-RCA� by Dr. Lyles on 03/04/25, pod #8
- s/p [place] pacer 11/18/24
- hx syncope
- hx of a-fib in 2016
- CAD/ 70% distal LAD- ASA contraindicated d/t allergy. Will resume Plavix when tolerating solids
- Allergy to NSAIDs with hives/swelling
- HTN/HLD
- DM II (HgA1c 6.0)
- Anxiety/depression
- Asthma
- Insomnia
- Benign neoplasm of colon
- Osteoarthritis
- Hypothyroidism
- PVD
- L hip ORIF
- Spigelian hernia repair x5
- Acute postop blood loss anemia/ coagulopathy - s/p 5 pRBCs, 2 unit platelets, 2 FFP, DDAVP
- Acute postop pulmonary insufficiency/atelectasis
- Acute postop hypovolemia with subsequent hypervolemia
- Acute postop hyponatremia
- Acute postop PAF with RVR
- Acute postop transaminitis
Discussed patient care with: Nursing and Care Team
Subjective
-
Date of Service: March 12, 2025
Objective Data
-
Lab Results
03/11/25 03:13
03/12/25 07:10
PT 14.2 Sec (11.4-14.6) 03/08/25 20:25
INR 1.07 03/08/25 20:25
APTT 29.3 Sec (23.4-35.0) 03/04/25 20:13
Vital Signs
Vital Signs
Temp Pulse Resp BP Pulse Ox
97.6 F 84 16 134/67 94
03/12/25 04:25 03/12/25 06:00 03/12/25 04:25 03/12/25 04:25 03/12/25 04:25
CT Intake/Output/Weight
03/11/25 03/12/25 03/12/25
18:59 06:59 18:59
Intake Total 1532.9 / 1532.9
Output Total 3610 / 4595 985 / 4595
Balance -2077.1 / -3062.1 -985 / -3062.1
SaO2: 94
Physical Exam
-
General: Awake and AOx3
Cardiovascular: Regular rate & rhythm (+JVD), No Murmurs and No Rub
Respiratory: Decreased Breath Sounds
Sternum: Stable
Incision: Clean, Dry and Intact
Extremities: Edema +2
Abdomen: soft, nontender, nondistended, + bowel sounds
Data Reviewed
-
Lab Results: Results Reviewed
Medications: Active Meds Reviewed
Chest X-Ray: Report Reviewed and Image Reviewed
ECG: Report Reviewed and Image Reviewed
[2025-03-12 08:07] LABS: Glucose - Point of Care 139 mg/dl (70-99)
--- NOTE | 2025-03-12 08:14 | PN.DE.MGMTRT ---
Insulin Management
- -
03/12/2025: Diabetes Management Follow up
Patient admitted 03/04 for elective aortic valve replacement. 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 Patient has
known severe aortic valve stenosis.
States was told she was pre-diabetic and has been taking Metformin 500mg twice a day for 10 years. Has a monitor and has been testing her blood sugars at home. A1C 6.0%, Cr 0.6, eGFR >60
Pt awake, alert, oriented, sitting up in chair, offers no complaints, able to discuss diabetes care plan. Pt states she has a glucose monitor at home.
POD #8 s/p AVR #23mm Freestyle root replacement w/reimplantation of coronaries, CABG x 1 SVG-RCA.
Transitioned off insulin infusion on 03/06. Farxiga 10mg daily, started 03/08 with metformin 500 mg BID with low corrective insulin.
Yesterday glucose range 131 to 174. 12AM glucose 1240. Fasting glucose 130 V, 139 POC.
Will make no change to regimen Farxiga 10 mg daily with metformin 500 mg BID and low corrective.
03/08 Pt was counseled on SE of SGLT2 including Genitourinary tract bacterial and yeast infections and was instructed to notify her PCP at sx onset. Reinforced 03/11. Discussed with Nurse. Will cont to follow.
Diabetes History
- -
Type of Diabetes: 2
Pre-Admission Diabetes Regimen
03/12/25
07:10
Creatinine 0.8
Insulin Pump Settings
IP Diabetes Regimen
03/11/25 03/11/25 03/12/25
12:26 16:57 00:07
Glucose
POC Glucose 131 H 174 H 124 H
03/12/25 03/12/25
07:10 08:03
Glucose 130 H
POC Glucose 139 H
Meal type: Breakfast
Meal type: Dinner
Meal type: Lunch
Amount consumed: 50%
Amount consumed: 75%
Amount consumed: 30%
Patient Education
--- NOTE | 2025-03-12 08:18 | PTCARENOTE ---
Patient received from overnight associate resting oob in chair, AAO x 3, states pain controlled. NSR via cm, SaO2 @ 96% on RA. Rubi catheter to gravity. All procedural sites stable. Dr. Lyles and CT team to bedside, patient updated to plan of care for the
day, in agreement. See work list for full assessment and interventions performed.
[2025-03-12] MEDS: NOVOLOG FLEXPEN-LOW RESISTANCE SC ×2 (08:43→16:40)
[2025-03-12] MEDS: LIDOCAINE 4% PATCH TOPICAL (08:44)
[2025-03-12] MEDS: NSS IV (08:44)
[2025-03-12] MEDS: LOPRESSOR 12.5 MG PO (08:49)
[2025-03-12] MEDS: BUMEX 2 MG PO (08:49)
[2025-03-12] MEDS: PACERONE 200 MG PO ×3 (08:50→21:05)
[2025-03-12] MEDS: PROTONIX 40 MG PO (08:50)
[2025-03-12] MEDS: COZAAR 50 MG PO (08:50)
[2025-03-12] MEDS: GLUCOPHAGE 500 MG PO ×2 (08:50→16:38)
[2025-03-12] MEDS: KCL 20 MEQ PO (08:50)
[2025-03-12] MEDS: ELIQUIS 5 MG PO ×2 (08:50→19:56)
[2025-03-12] MEDS: FARXIGA 10 MG PO (08:50)
[2025-03-12] MEDS: LIPITOR 20 MG PO (08:50)
[2025-03-12] MEDS: NEURONTIN 100 MG PO ×2 (08:50→16:10)
[2025-03-12] MEDS: MAGNESIUM OXIDE 400 MG PO ×2 (08:50→19:57)
[2025-03-12] MEDS: PLAVIX 75 MG PO (08:50)
--- NOTE | 2025-03-12 10:25 | W.PN.CARDCBS ---
Today's Communication / Plan
-
Transitioning to oral therapy and continuing rehab efforts with plan for discharge [facility].
Impression / Plan
-
PCP: Dr. Maggie Jacobs
Primary Oncology Navigator: Dr. Fischer
Impression:
s/p AVR #23mm Freestyle root replacement w/reimplantation of coronaries, CABG x 1 SVG-RCA 03/04/25
s/p tissue AVR and root replacement for severe 03/04/25
CAD s/p CABG with SVG to prox RCA 03/04/25
h/o syncope
Bifascicular block and 2-1 and 3-1 AV block at time of cath, s/p SJM PPM 11/18/24
PAF
DM2
HTN
HLD
Hypothyroidism
ECHO 10/26/24: Preserved LV function, severe concentric LVH, mean aortic gradient of 51 mmHg with mild to moderate AR and valve area 0.6 cm�
Echo 03/08/2025: Vigorous LV systolic function, EF 70 to 75%, study done on IV dobutamine. Normal RV size and function, mild to moderate TR, PAP 39 mmHg, status post 23 mm Medtronic AVR and aortic root replacement peak/mean gradients 48/24 mmHg
respectively. No AI. No pericardial effusion. Compared to intraoperative MYRNA 03/04/2025, prior mean gradient 15 mmHg and no AI
Plan:
Patient is s/p AVR #23mm Freestyle root replacement w/reimplantation of coronaries, CABG x 1 SVG-RCA� by Dr. Lyles on 03/04/25.
-Hemodynamically stable Off dobutamine support since 03/11
-Diuresing well with Bumex with improved volume status; Transition to Bumex 2 mg orally daily today
-Postoperative PAF in sinus rhythm. Continue oral amiodarone and Eliquis 5 mg twice daily which was started on 03/09
-Currently on Plavix status CABG
-Continue losartan and atorvastatin
-Lopressor 25 mgTwice daily started today
-Diabetic management: On Farxiga and metformin.
-PT efforts
-Plan to discharge [facility]
Progress Note - Oncology Navigator
Subjective
Date of Service: March 12, 2025
Seen and examined after working with physical therapy. Patient is doing well and overall feels better. No shortness of breath or dizziness. Improved edema.
Objective
Labs:
03/11/25 03:13
03/12/25 07:10
Labs
Hgb 9.4 g/dL (12.0-16.0) L 03/11/25 03:13
Hct 28.5 % (37.0-47.0) L 03/11/25 03:13
Plt Count 190 10^3/uL (130-400) 03/11/25 03:13
PT 14.2 Sec (11.4-14.6) 03/08/25 20:25
INR 1.07 03/08/25 20:25
APTT 29.3 Sec (23.4-35.0) 03/04/25 20:13
Sodium 134 mmol/L (135-145) L 03/12/25 07:10
Potassium 4.7 mmol/L (3.5-5.1) 03/12/25 07:10
BUN 20 mg/dl (7-17) H 03/12/25 07:10
Creatinine 0.8 mg/dL (0.6-1.0) 03/12/25 07:10
Glucose 130 mg/dl (70-99) H 03/12/25 07:10
Vital Signs and I&O:
Vital Signs
Temp Pulse Resp BP Pulse Ox
98.4 F 85 17 130/77 96
03/12/25 08:00 03/12/25 10:08 03/12/25 08:00 03/12/25 10:08 03/12/25 08:15
Vital Signs
Temp Pulse Resp BP Pulse Ox
98.4 F 85 17 130/77 96
03/12/25 08:00 03/12/25 10:08 03/12/25 08:00 03/12/25 10:08 03/12/25 08:15
Intake & Output
03/10/25 03/11/25 03/12/25 03/13/25
06:59 06:59 06:59 06:59
Intake Total 1.7 / 2030.2 2860.8 / 2928.9 1532.9 / 1532.9 480 / 480
Output Total 3665 / 3665 4030 / 4060 4595 / 4595 400 / 400
Balance -1713.3 / -1633.8 -1169.2 / -1131.1 -3062.1 / -3062.1 80 / 80
Physical Exam
Physical Exam
GEN: No distress, awake, alert, oriented x3. sitting in chair
HEENT: mmm
LUNGS: Decreased BS B/L bases, no wheezes
CV: Reg, S1/S2, 1/6 SM
ABD: soft, BS+, NT/ND
EXT: trace edema of B/L LE
NEURO: Gross non-focal
SKIN: Sternotomy incision c/d/i.
--- NOTE | 2025-03-12 11:43 | PTCARENOTE ---
Patient sent to radiology department, pa/lat completed. VS obtained, assessment stable. Patient voiding w/out issue. Settled to chair, call craft within reach.
[2025-03-12 12:02] LABS: Glucose - Point of Care 155 mg/dl (70-99)
[2025-03-12] MEDS: NOVOLOG FLEXPEN-LOW RESISTANCE 1 UNITS SC (12:10)
--- NOTE | 2025-03-12 16:14 | PTCARENOTE ---
VS obtained, assessment stable. Patient resting comfortably oob, watching TV.
[2025-03-12 16:40] LABS: Glucose - Point of Care 129 mg/dl (70-99)
--- NOTE | 2025-03-12 16:57 | CM ---
pt ready for transfer to [place] tomorrow, confirmed bed is avail. pt agreeable to this plan.
[2025-03-12] MEDS: LOPRESSOR 25 MG PO (19:57)
[2025-03-12] MEDS: REMOVE LIDOCAINE PATCH REMOVE (19:58)
--- NOTE | 2025-03-12 20:00 | PTCARENOTE ---
Resumed care of the patient at 1900. AAOx3, [place]. NSR on CM, PPM, no pacing spikes noted, pulses palpable, trace edema throughout. 92+% on RA, lungs dim at the bases, IS to 1250. Abd SNT, normoactive BS, appetite much improved, patient report BM x2
the previous shift. Voiding spontaneously into the toilet. All surgical sites stable and intact. PIVx1. See nursing flow sheet for further intervention details.
[2025-03-12] MEDS: REMERON 15 MG PO (21:05)
[2025-03-12 21:08] LABS: Glucose - Point of Care 121 mg/dl (70-99)
[2025-03-12] MEDS: NEURONTIN PO (21:08)
[2025-03-13 00:07] VITALS: BP 132/70
--- NOTE | 2025-03-13 00:10 | PTCARENOTE ---
No acute issues. VSS, patient sleeping between care, no needs indicated at this time.
[2025-03-13 04:02] VITALS: BP 124/59
--- NOTE | 2025-03-13 04:15 | PTCARENOTE ---
VSS. Patient up to the bathroom to void. Urine foul smelling, cloudy. CVPA made aware, ordered UA for next void. Patient denies symptoms at this time. Labs drawn and sent, patient placed BIB and made comfortable.
[2025-03-13 05:05] LABS: Blood Urea Nitrogen 25 mg/dl (7-17); Calcium 9.9 mg/dl (8.4-10.2); Carbon Dioxide 30 mmol/L (22-30); Chloride 97 mmol/L (98-107); Estimated Creatinine Clearance 58 ml/min; Glucose 111 mg/dl (70-99); Magnesium 2.1 mg/dl (1.6-2.3); Potassium 4.4 mmol/L (3.5-5.1); Sodium 135 mmol/L (135-145); eGFR > 60.00
--- NOTE | 2025-03-13 05:15 | W.PN.CT ---
Today's Communication / Plan
-
-pod #9
-no issues ove-drips: none
-diuresing with Bumex
-Cr stable 0.9
-follow UA
-Cont. current meds (Plavix, Eliquis, Lopressor 25 bid, Amiodarone, Lipitor, Losartan, Bumex 2 mg po daily, Glucophage, Farxiga). No ASA (allergy).
-continue IS, OOB
-continue PT/OT
-appreciate everyone's input
-d/c to [facility] today
Assessment / Plan
-
Impression:
- Bicuspid aortic valve with - s/p AVR #23mm Freestyle root replacement w/reimplantation of coronaries, CABG x 1 SVG-RCA� by Dr. Lyles on 03/04/25, pod #9
- s/p [facility] pacer 11/18/24
- hx syncope
- hx of a-fib in 2016
- CAD/ 70% distal LAD- ASA contraindicated d/t allergy. Will resume Plavix when tolerating solids
- Allergy to NSAIDs with hives/swelling
- HTN/HLD
- DM II (HgA1c 6.0)
- Anxiety/depression
- Asthma
- Insomnia
- Benign neoplasm of colon
- Osteoarthritis
- Hypothyroidism
- PVD
- L hip ORIF
- Spigelian hernia repair x5
- Acute postop blood loss anemia/ coagulopathy - s/p 5 pRBCs, 2 unit platelets, 2 FFP, DDAVP
- Acute postop pulmonary insufficiency/atelectasis
- Acute postop hypovolemia with subsequent hypervolemia
- Acute postop hyponatremia
- Acute postop PAF with RVR
- Acute postop transaminitis
Discussed patient care with: Nursing and Care Team
Subjective
-
Date of Service: March 13, 2025
Objective Data
-
Lab Results
03/11/25 03:13
03/13/25 04:26
PT 14.2 Sec (11.4-14.6) 03/08/25 20:25
INR 1.07 03/08/25 20:25
APTT 29.3 Sec (23.4-35.0) 03/04/25 20:13
Vital Signs
Vital Signs
Temp Pulse Resp BP Pulse Ox
97.7 F 82 18 124/59 94
03/13/25 04:02 03/13/25 05:00 03/13/25 04:02 03/13/25 04:02 03/13/25 04:02
CT Intake/Output/Weight
03/12/25 03/12/25 03/13/25
06:59 18:59 06:59
Intake Total 960 / 960
Output Total 985 / 4595 1300 / 1650 350 / 1650
Balance -985 / -3062.1 -340 / -690 -350 / -690
SaO2: 94
Physical Exam
-
General: Awake and AOx3
Cardiovascular: Regular rate & rhythm (+JVD), No Murmurs and No Rub
Respiratory: Decreased Breath Sounds
Sternum: Stable
Incision: Clean, Dry and Intact
Abdomen: soft, nontender, nondistended, + bowel sounds
Extremities: Edema +2
Data Reviewed
-
Lab Results: Results Reviewed
Medications: Active Meds Reviewed
Chest X-Ray: Report Reviewed and Image Reviewed
ECG: Report Reviewed and Image Reviewed
[2025-03-13] MEDS: SYNTHROID 88 MCG PO (06:11)
[2025-03-13] MEDS: TYLENOL 975 MG PO (06:11)
[2025-03-13 07:25] VITALS: BP 149/66
[2025-03-13] MEDS: NOVOLOG FLEXPEN-LOW RESISTANCE SC ×2 (07:47→12:23)
[2025-03-13 07:48] LABS: Urine Character Clear (Clear)
[2025-03-13] MEDS: PLAVIX 75 MG PO (08:30)
[2025-03-13] MEDS: PROTONIX 40 MG PO (08:30)
[2025-03-13] MEDS: KCL 20 MEQ PO (08:30)
[2025-03-13] MEDS: PACERONE 200 MG PO (08:30)
[2025-03-13] MEDS: FARXIGA 10 MG PO (08:30)
[2025-03-13] MEDS: MAGNESIUM OXIDE 400 MG PO (08:30)
[2025-03-13] MEDS: GLUCOPHAGE 500 MG PO (08:31)
[2025-03-13] MEDS: COZAAR 50 MG PO (08:31)
[2025-03-13] MEDS: LOPRESSOR 25 MG PO (08:31)
[2025-03-13] MEDS: BUMEX 2 MG PO (08:31)
[2025-03-13] MEDS: LIPITOR 20 MG PO (08:31)
[2025-03-13] MEDS: ELIQUIS 5 MG PO (08:31)
[2025-03-13] MEDS: NEURONTIN PO (08:35)
[2025-03-13 09:03] LABS: Urine Squamous Cell 0-2 /LPF (Few); Urine White Cell 16-20 /HPF (0-5)
--- NOTE | 2025-03-13 09:12 | PTCARENOTE ---
assumed care of pt from previous shift RN, sinus rhythm on tele, VSS, + peripheral pulses, +1 edema to lower extremities. Lungs diminished, pox 95% coughing and deep breathing encouraged. +bs, tolerating PO intake. Urine foul smelling and cloudy. UA
obtained per CT GRISELDA. Assisted pt w shower, tolerated. Plan of care reviewed and questions encouraged.
[2025-03-13] MEDS: LIDOCAINE 4% PATCH TOPICAL (09:16)
--- NOTE | 2025-03-13 10:49 | W.DCSUMMARY ---
Discharge Summary
Discharge Data
Date of Admission: 03/04/25
Date of Discharge: 03/13/25
Total time spent discharging patient (in min): 30
-
Pending Results: No
Hospital Course
Primary care physician: Maggie Jacobs DO
Outpatient linderman machine operator: Rudy Fischer MD
Inpatient consultants: Cardiology
Procedures:
Aortic valve replacement with freestyle root, coronary artery bypass grafting x 1 with saphenous vein graft to right coronary artery, Dr. Lyles
Primary Diagnosis:
Aortic stenosis secondary to bicuspid aortic valve
Secondary Diagnoses:
- [facility] pacer 11/18/24
- History syncope
- Chronic afib
- Coronary artery disease
- Hypertension
- Hyperlipidemia
- Type 2 diabetes
- Anxiety/depression
- Asthma
- Insomnia
- Benign neoplasm of colon
- Osteoarthritis
- Hypothyroidism
- Peripheral vascular disease
- Left hip fracture status post open reduction internal fixation
- Spigelian hernia repair x5
- Acute postop blood loss anemia/ coagulopathy
- Acute postop pulmonary insufficiency/atelectasis
- Acute postop hypovolemia with subsequent hypervolemia
- Acute postop hyponatremia
- Acute postop transaminitis
HPI: The patient was evaluated in the outpatient setting by Dr. Lyles regarding aortic valve replacement and CABG. After appropriate preoperative workup she was deemed a surgical candidate and admitted electively for surgery.
Hospital course: Patient underwent open heart surgery as described above. Please refer to Dr. Lyles separately dictated operative note for complete details. Postoperatively the patient progressed well. She was transferred to the intensive care
unit on low-dose Levophed, vasopressin, dobutamine. She required transfusion of fresh frozen plasma for postoperative coagulopathy. She otherwise progressed well in the usual expected postoperative pathway and was extubated per protocol at 1630 on
postoperative day 0.
Postoperative day #1 she required blood transfusion. Dobutamine was slowly weaned. Vasopressors remain off. She was gently diuresed. Epicardial wires were removed.
Postoperative day #2: Dobutamine was again slowly weaned. Cardiac index remained acceptable. She was diuresed aggressively with Bumex IV. Chest tubes remained.
Postoperative day #3 she continues to progress well. Dobutamine was weaned completely off at this time. She had a couple of runs of supraventricular tachycardia which resolved with amiodarone.
Postoperative day #4: Dobutamine was restarted due to low mixed venous gases. She was again aggressively diuresed. Transthoracic echocardiogram shows appropriate biventricular function. She was volume resuscitated with 25% albumin with
improvement in hemodynamics. Mild elevation in liver function tests.
Postoperative #5: Dobutamine was slowly weaned. She was again diuresed. She went into rapid atrial fibrillation and was treated with amiodarone bolus and drip.
Postoperative day #6: Dobutamine was weaned again slowly. She was diuresed. She began ambulating. She received 1 unit of packed red blood cells.
Postoperative day #7 dobutamine was again weaned off. Follow-up echocardiogram showed appropriate biventricular function. Invasive monitoring lines were removed.
Postoperative day #8: Diuresis is ongoing. Rubi removed. This rhythm throughout the day. She was evaluated from [facility].
Postoperative day #9 she was deemed appropriate for discharge to [facility]..
Home medication changes: Metoprolol and losartan doses were decreased from her usual home dose. Statin was transitioned to atorvastatin from simvastatin.
Discharge Plan
-
Patient Disposition: Acute Rehab Facility
Discharge Diagnosis/Procedures: - Aortic stenosis secondary to bicuspid aortic valve - Status post AVR 23mm Freestyle root replacement and coronary artery bypass grafting x 1 with saphenous vein graft to right coronary artery by Dr. Lyles on 03/04/[address]
- [facility] pacer 11/18/24
- History syncope
- Chronic afib
- Coronary artery disease
- Hypertension
- Hyperlipidemia
- Type 2 diabetes
- Anxiety/depression
- Asthma
- Insomnia
- Benign neoplasm of colon
- Osteoarthritis
- Hypothyroidism
- Peripheral vascular disease
- Left hip fracture status post open reduction internal fixation
- Spigelian hernia repair x5
- Acute postop blood loss anemia/ coagulopathy
- Acute postop pulmonary insufficiency/atelectasis
- Acute postop hypovolemia with subsequent hypervolemia
- Acute postop hyponatremia
- Acute postop transaminitis
Condition: Fair
Diet: Low Fat and Low Cholesterol
Activity: No strenuous activity
Driving Restrictions: Not until seen by your Dr
Bathing Restrictions: OK to Shower
Other Services: Cardiac Rehab
Specialty Instructions: Weigh Daily- Call MD for wt gain/loss 3 lbs overnight/5 lbs in 1 week
Activity Restrictions/Additional Instructions:
Patient to attend [facility]. [phone].
ACTIVITY:
-No strenuous activity: no heavy lifting, pushing, pulling anything over 15 pounds for one month
-continue to use stairs as tolerated
DRIVING RESTRICTIONS:
-No driving for one month or until approved by your surgeon
WOUND CARE:
-Shower daily. Use soap & water.
-No lotions, creams or powders on incision area.
DIET:
-continue a low fat/low cholesterol diet.
-IF you are diabetic, continue carb controlled diet.
CARDIAC REHAB:
-Please make appointment to start in 5-6 weeks with your local hospital program. (See Cardiac Rehabilitation Discharge Booklet).
SPECIALTY INSTRUCTIONS:
-Weigh yourself daily. Call your physician for any weight gain/loss of 3 lbs overnight or 5 lbs in one week.
-REPORT any clicking noise or uneven appearance of your sternum to your surgeon immediately.
-If you smoke, you are instructed to quit. The [place] smoking hotline phone number is [phone]
Referrals:
[facility] [Other]
Maggie Jacobs DO [Family Provider, Family Practice]
John Lyles MD [Active, Cardiac Surgery] - 04/05/25 2:15 pm
Rudy Fischer DO [Affiliate, Cardiology] - 04/16/25 2:30 pm
Prescriptions:
New
losartan 50 mg Tablet
50 mg PO DAILY Qty: 30 2RF
atorvastatin 20 mg Tablet
20 mg PO DAILY Qty: 30 2RF
amiodarone [Pacerone] 200 mg Tablet
200 mg PO BID Qty: 60 2RF
potassium chloride 20 mEq Tablet,Er Particles/Crystals
20 meq PO DAILY 10 Days Qty: 10 0RF
metoprolol tartrate 25 mg Tablet
25 mg PO BID Qty: 60 2RF
Eliquis 5 mg Tablet
5 mg PO BID Qty: 60 2RF
dapagliflozin propanediol 10 mg Tablet
10 mg PO DAILY Qty: 30 2RF
bumetanide 2 mg tablet
2 mg PO DAILY 10 Days Qty: 10 0RF
Continued
metformin 500 mg Tablet
500 mg PO BID
levothyroxine 88 mcg Tablet
88 mcg PO DAILY
mirtazapine 15 mg Tablet
15 mg PO HS
albuterol sulfate 90 mcg/actuation Hfa Aerosol Inhaler
2 puff INHALATION Q6H PRN (Reason: wheezing)
magnesium 200 mg Tablet
200 mg PO DAILY
clopidogrel 75 mg Tablet
75 mg PO DAILY
acetaminophen 500 mg Tablet
1,000 mg PO Q6H PRN (Reason: pain)
multivitamin Tablet
1 tab PO DAILY
vitamin B complex Tablet
1 tab PO DAILY
Cbn/Thc/Melatonin Gummie
1 unit PO HS
Discontinued
simvastatin 40 mg Tablet
40 mg PO DAILY
metoprolol tartrate 50 mg Tablet
50 mg PO BID
losartan 100 mg Tablet
100 mg PO DAILY
Discharge Orders:
Discharge Patient (As Directed); Ordered 03/13/25
Ordered By: Jose Miner
Care Plan Goals
Care Plan Goals:
Problem: Readiness for enhanced knowledge related to diagnosis and treatment plan
Goal: Understand your diagnosis and treatment plan needs, including medications if applicable.
Instructions: Know your diagnosis, underlying causes and treatment plan options, including medications if applicable. Consult with your health care team to learn about your diagnosis and treatment plan, including medications if applicable.
Discharge Date and Time
Print Language: BELARUSIAN
[2025-03-13] MEDS: NSS IV (11:13)
[2025-03-13 12:20] LABS: Glucose - Point of Care 131 mg/dl (70-99)
[2025-03-13 13:00] VITALS: BP 124/68
--- NOTE | 2025-03-13 13:40 | PTCARENOTE ---
report given to Angela at [facility].
== END 2025-03-13 14:08 | DRG 219 ==
LOC: CVICU 04:47
PROVIDERS: Anesthesiology; Clinical Nurse Specialist Acute Care; Internal Medicine Interventional Cardiology; Nurse Practitioner; Physician Assistant; Physician Assistant Medical; ADMITTING PHYSICIAN Thoracic Surgery (Cardiothoracic Vascular Surgery); CONSULT PHYSICIAN Internal Medicine Critical Care Medicine; CONSULT PHYSICIAN Nuclear Medicine Nuclear Cardiology; FAMILY PHYSICIAN Family Medicine
PROC: 021009W Bypass Coronary Artery, One Artery from Aorta with Autologous Venous Tissue, Open Approach (ICD-10-PCS; 2025-03-04)
PROC: 30233R1 Transfusion of Nonautologous Platelets into Peripheral Vein, Percutaneous Approach (ICD-10-PCS; 2025-03-04)
PROC: B24BZZ4 Ultrasonography of Heart with Aorta, Transesophageal (ICD-10-PCS; 2025-03-04)
PROC: 02RF08Z Replacement of Aortic Valve with Zooplastic Tissue, Open Approach (ICD-10-PCS; 2025-03-04)
PROC: 02RX08Z Replacement of Thoracic Aorta, Ascending/Arch with Zooplastic Tissue, Open Approach (ICD-10-PCS; 2025-03-04)
PROC: 30233N1 Transfusion of Nonautologous Red Blood Cells into Peripheral Vein, Percutaneous Approach (ICD-10-PCS; 2025-03-04)
PROC: 30233K1 Transfusion of Nonautologous Frozen Plasma into Peripheral Vein, Percutaneous Approach (ICD-10-PCS; 2025-03-04)
PROC: 5A1221Z Performance of Cardiac Output, Continuous (ICD-10-PCS; 2025-03-04)
PROC: 02C00ZZ Extirpation of Matter from Coronary Artery, One Artery, Open Approach (ICD-10-PCS; 2025-03-04)
PROC: 06BP4ZZ Excision of Right Saphenous Vein, Percutaneous Endoscopic Approach (ICD-10-PCS; 2025-03-04)
PROC: 4B02XSZ Measurement of Cardiac Pacemaker, External Approach (ICD-10-PCS; 2025-03-05)
DX: I35.0 Nonrheumatic aortic (valve) stenosis (principal); J95.1 Acute pulmonary insufficiency following thoracic surgery; D68.8 Other specified coagulation defects; I45.2 Bifascicular block; I48.20 Chronic atrial fibrillation, unspecified; E87.1 Hypo-osmolality and hyponatremia; J98.11 Atelectasis; D62 Acute posthemorrhagic anemia; I47.10 Supraventricular tachycardia, unspecified; I25.10 Atherosclerotic heart disease of native coronary artery without angina pectoris; I10 Essential (primary) hypertension; E78.5 Hyperlipidemia, unspecified; E11.51 Type 2 diabetes mellitus with diabetic peripheral angiopathy without gangrene; M81.0 Age-related osteoporosis without current pathological fracture; E03.9 Hypothyroidism, unspecified; E86.1 Hypovolemia; R74.01 Elevation of levels of liver transaminase levels; E87.70 Fluid overload, unspecified; Y83.2 Surgical operation with anastomosis, bypass or graft as the cause of abnormal reaction of the patient, or of later complication, without mention of misadventure at the time of the procedure; J45.909 Unspecified asthma, uncomplicated; G47.00 Insomnia, unspecified; F41.9 Anxiety disorder, unspecified; M19.90 Unspecified osteoarthritis, unspecified site; F32.A Depression, unspecified; Z79.02 Long term (current) use of antithrombotics/antiplatelets; Z79.84 Long term (current) use of oral hypoglycemic drugs; Z79.899 Other long term (current) drug therapy; Z82.49 Family history of ischemic heart disease and other diseases of the circulatory system; Z87.891 Personal history of nicotine dependence; Z95.0 Presence of cardiac pacemaker
CPT/HCPCS: 36415; 71045; 71046; 80048; 80053; 80076; 81003; 81015; 82248; 82330; 82565; 82805; 82810; 82947; 82962; 83605; 83735; 84132; 84302; 84450; 84460; 84520; 85014; 85018; 85025; 85027; 85049; 85610; 85730; 86850; 86900; 86901; 86920; 87070; 87077; 87086; 87186; 88305; 88311; 93005; 93308; 93312; 93320; 93321; 93325; 93880; 94002; 97110; 97116; 97163; 97167; 97530; 97535; C1768; J2597; J2916; P9016; P9045; P9047; P9059; P9073; Q9950; Q9957